=== PATIENT | female | born 1960 | race Caucasian/White ===

== ENCOUNTER 2019-03-25 18:31 | Emergency (ER) | payer OTHER, SELFPAY ==
[2019-03-25 18:35] VITALS: BP 142/88; PULSE 94; RESP 18; TEMP 36.7; O2SAT 97
--- NOTE | 2019-03-25 18:56 | ED.GENADUL_ITS ---
Discharge Plan Disposition Patient Disposition: HOME Condition: Stable Discharge Details Chief Complaint: Nk/Back Pain Clinical Impression: Low back pain Primary Care Provider: Mariana Aragon ED Provider: Kevan Mccarthy Home Meds and New Rx's Prescriptions: New cyclobenzaprine 10 mg tablet 10 mg PO TID PRN (Reason: muscle spasm) Qty: 30 RF: 0 Continued prochlorperazine maleate 10 MG tablet 10 mg PO Q8H PRN Qty: 20 RF: 1 hydroxyzine HCl 25 MG tablet 25 mg PO Q4H PRN Qty: 60 RF: 2 acetazolamide 250 MG tablet 1 - 2 tab PO BID Qty: 120 RF: 3 propranolol 80 MG tablet 160 mg PO DAILY RF: 0 methylphenidate HCl [Ritalin] 20 MG tablet 60 mg PO DAILY RF: 0 modafinil [Provigil] 200 mg Tablet 100 mg PO BID RF: 0 ibuprofen 800 mg Tablet 800 mg PO PRN PRNRF: 0 acetaminophen [Tylenol Extra Strength] 500 mg Tablet 1,000 mg PO PRN PRNRF: 0 Discharge Instructions Instructions: Low Back Strain (ED) Stand Alone Forms: Work Release Medical Decision Making 58 yo female who states she has had low back pain since December 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 Denies fevers, urinary retention, weakness, ivdu, falls, trauma. HAs pain in lumbar region, no stepoffs or rashes, no saddle anesthesisa, normal motor strength of legs and sensation and normal reflexes. Suspect muscle strain vs disc herniation. NO findings to suggest cauda equina vs sea on history or exam. Will start her on muscle relaxers and return precautions given Differential Diagnosis Differential Diagnosis: spasm, strain, disc herniation HPI General Mode of arrival: ambulatory . Date/Time Provider Initiated Documentation: 03/25/19 18:34 . Limitations to Documentation: no limitations . Information obtained by: patient . History of Present Illness 58 year old F presents to the emergency department with the chief complaint of back pain, described as moderate, and it has been constant. No relieving factors improve symptom(s), No exacerbating factors reported . Patient notes no other symptoms.. Related Data Home Medications Medication Instructions Recorded Confirmed methylphenidate HCl [Ritalin] 60 mg PO DAILY 01/12/15 03/25/19 propranolol 160 mg PO DAILY 01/12/15 03/25/19 hydroxyzine HCl 25 mg PO Q4H PRN #60 tab-cap 05/23/15 03/25/19 prochlorperazine maleate 10 mg PO Q8H PRN #20 tab-cap 05/23/15 03/25/19 acetazolamide 1 - 2 tab PO BID #120 tab-cap 09/27/15 03/25/19 acetaminophen [Tylenol Extra 1,000 mg PO PRN PRN 03/25/19 03/25/19 Strength] cyclobenzaprine 10 mg PO TID PRN #30 tab 03/25/19 ibuprofen 800 mg PO PRN PRN 03/25/19 03/25/19 modafinil [Provigil] 100 mg PO BID 03/25/19 03/25/19 Previous Rx's Medication Instructions Recorded cyclobenzaprine 10 mg PO TID PRN #30 tab 03/25/19 Allergies Allergy/AdvReac Type Severity Reaction Status Date / Time Penicillins Allergy Severe Hives Unverified 03/25/19 18:42 General Stated Complaint: Nk/Back Pain TEDDY: 4 Review of Systems All systems reviewed & are unremarkable except as noted in HPI and below Constitutional Constitutional: Denies chills and Denies fever(s) Cardiovascular Cardiovascular: Denies chest pain and Denies dyspnea Respiratory Respiratory: Denies cough and Denies dyspnea Gastrointestinal Gastrointestinal: Denies abdominal pain, Denies nausea and Denies vomiting Genitourinary Genitourinary: Denies dysuria PFSH Social History Smoking/Tobacco Use Status: Never Drug use: Never Do you feel safe at home: Yes Do you feel safe in your relationship?: Yes Exam Const General: no acute distress Orientation: alert HENMT Head: normal to inspection Ears: external ears normal General nose exam: external nose normal Mouth: moist mucous membranes Eyes General: appearance normal, both eyes and all related structures Neck Neck: normal visual inspection Resp Effort & Inspection: normal respiratory effort and able to speak in complete sentences Cardio Rate: regular rate Back/Spine/Pelvis Back: no CVA tenderness Skin General skin exam: no rashes or lesions noted Neuro General: alert and oriented x3 Extrem General: normal to inspection Psych Mental Status: mental status grossly normal Course Vital Signs Vital signs: Vital Signs Temperature 36.7 C 01/22/20 18:35 Pulse 94 H 03/25/19 18:35 Respiratory Rate 18 03/25/19 18:35 Blood Pressure 142/88 H 03/25/19 18:35 Pulse Oximetry 97 03/25/19 18:35 Temperature 36.7 C 03/25/19 18:35 Temperature Source Temporal Artery Scan 03/25/19 18:35 Pulse 94 H 03/25/19 18:35 Respiratory Rate 18 03/25/19 18:35 Respiratory Effort 03/25/19 18:41 Blood Pressure 142/88 H 03/25/19 18:35 Blood Pressure Position Sitting 03/25/19 18:35 Pulse Oximetry 97 03/25/19 18:35 Oxygen Delivery Method Room Air 03/25/19 18:35 Oxygen Flow Rate 0 03/25/19 18:35 Pain Level 8 03/25/19 18:35
[2019-03-25] MEDS: Lidocaine 5% Patch 1 PATCH TP (19:21)
[2019-03-25] MEDS: Cyclobenzaprine 10 MG TAB, 3 TABS/BTL PO (19:22)
== END 2019-03-25 19:35 | disposition home or self-care (01) ==
PROVIDERS: Emergency Provider Emergency Medicine; PCP Internal Medicine
DX: M54.5 Low back pain (principal); X50.0XXA Overexertion from strenuous movement or load, initial encounter; Y99.0 Civilian activity done for income or pay
CPT/HCPCS: 99283

== ENCOUNTER 2019-04-02 04:31 | Emergency (ER) | payer SELFPAY ==
[2019-04-02] VITALS (28 sets, daily range): BP systolic 137–155; BP diastolic 59–94; PULSE 73–88; RESP 15–29; TEMP 36.7–36.8; O2SAT 92–99
--- NOTE | 2019-04-02 04:54 | W.ED.GENAD ---
Discharge Plan Disposition Patient Disposition: HOME Discharge Details Chief Complaint: Chest Pain Clinical Impression: Chest pain Primary Care Provider: Mariana Aragon ED Provider: Robert Mccloud Home Meds and New Rx's Prescriptions: New famotidine [Pepcid] 20 mg tablet 20 mg PO BID Qty: 28 RF: 0 aspirin 81 mg tablet,delayed release (DR/EC) 81 mg PO DAILY Qty: 30 RF: 0 Continued prochlorperazine maleate 10 MG tablet 10 mg PO Q8H PRN Qty: 20 RF: 1 hydroxyzine HCl 25 MG tablet 25 mg PO Q4H PRN Qty: 60 RF: 2 acetazolamide 250 MG tablet 1 - 2 tab PO BID Qty: 120 RF: 3 propranolol 80 MG tablet 160 mg PO DAILY RF: 0 methylphenidate HCl [Ritalin] 20 MG tablet 60 mg PO DAILY RF: 0 modafinil [Provigil] 200 mg Tablet 100 mg PO BID RF: 0 ibuprofen 800 mg Tablet 800 mg PO PRN PRNRF: 0 acetaminophen [Tylenol Extra Strength] 500 mg Tablet 1,000 mg PO PRN PRNRF: 0 cyclobenzaprine 10 mg tablet 10 mg PO TID PRN (Reason: muscle spasm) Qty: 30 RF: 0 Discharge Instructions Instructions: Chest Pain (ED) Additional Instructions: You should have a stress test performed ideally within the next 72 hours. Please follow-up with primary care physician. Return to the ER immediately for any worsening or new concerning symptoms. Stand Alone Forms: Work Release Discharge Data Discharge Date/Time-TO BE ENTERED AT DEPARTURE: 04/02/19 10:25 Medical Decision Making <Tremayne Vail MD - Last Filed: 04/02/19 20:34> Patient presents to ED with chest pain. No associated symptoms and no radiation. Only cardiac risk factor is hypertension. Her revised Rosebud score makes her low probability for PE. Her EKG shows no acute ST changes. Will place IV and get labs. Will give aspirin until we have completed work-up to rule out cardiac disease. Pain is almost gone so we will hold off on nitro or pain medication. Patient continues to have some mild discomfort. GI cocktail did not really help. However, she does not want nitroglycerin or pain medication as it is minimal. Laboratory studies are unremarkable. Age-adjusted d-dimer negative. First troponin negative. Chest x-ray per my review without obvious infiltrate. Preliminary radiology read suggests atelectasis versus possible early right pneumonia. Patient has no fever, white count, cough, shortness of breath. I do not suspect pneumonia. Will hold for second EKG and troponin and if normal can plan discharge to follow-up with primary care. Patient to be signed out to oncoming physician this morning. Lab Data Lab results reviewed: Yes I reviewed the patient's lab results. ECG Data Attestation: I personally reviewed and interpreted this ECG (s) as follows: Interpretation: Sinus rhythm at 78. Normal intervals but left anterior fascicular block and left axis noted. No ST changes. <Robert Mccloud MD - Last Filed: 04/02/19 21:38> 8:00 -- Care signed out by Dr. Vail -please see his documentation regarding initial ED presentation and course. Dr. Vail recommends repeat troponin and repeat ECG and reassess patient and if no change likely discharge with outpatient follow-up. -- I did call and speak with Dr. Islas, radiologist, who interpreted chest x-ray and notes very subtle right middle lobe finding likely atelectasis and not consistent with cardiovascular etiology. -- Labs were reviewed. Second troponin at 3 hours negative and unchanged. Repeat ECG was reviewed and interpreted by me: Sinus rhythm 81 bpm, left axis deviation is present, no STEMI, no ischemic or dynamic changes compared to prior ECG. Patient was reassessed: She notes she is feeling much better and attributes her symptoms today to emotional distress. She states yesterday she had a very stressful day and was feeling anxious today. I did offer anxiolytic today and she declined. She does request a work note for the remainder of the week and early next week. Concern at this point is for anxiety, musculoskeletal or gastrointestinal etiology for discomfort. Plan will be for outpatient stress test. Patient does not currently have a primary care physician. I will ask care management to help patient arrange timely outpatient primary care follow-up. I explained to patient that stress test should be performed soon as possible ideally within the next 72 hours. I will order this study to help expedite outpatient work-up. Patient understands importance of timely follow-up and that she may return if she has difficulty with follow-up. Patient does note increased frequency of chronic migraine headaches recently. She states that she has had difficulty scheduling neurology appointment at her place of [place] [employer] [place] I offered assistance in coordinating follow-up and she declined noting she plans to reach out to [facility] to arrange follow-up. Disposition decision was made weighing the risks and benefits of hospitalization versus outpatient treatment, the risk for further decompensation, and the patient's wishes. The patient was stable and requested discharge. Prior to discharge, my usual and customary return precautions were reviewed with the patient - this included follow-up instructions and reason to return to the emergency department if condition worsens, does not improve as expected, or other new concerns arise. Lab Data Lab results reviewed: Yes I reviewed the patient's lab results. HPI <Tremayne Vail MD - Last Filed: 04/02/19 20:34> General Mode of arrival: EMS. Date/Time Provider Initiated Documentation: 04/02/19 04:54. Limitations to Documentation: no limitations. Information obtained by: patient, RN notes reviewed and old records reviewed. HPI Narrative: Patient presents to ED with lower substernal chest pain that woke her up. There is no radiation of the pain. There is no associated symptoms. Tums did not help. EMS was called. Pain seemed to get better on its own but is intermittently worsening at times. Has not completely gone away. Has been under a lot of stress. Other than high blood pressure has no other cardiac risk factors. She does not smoke. She did not receive aspirin and nitro in route. Related Data Home Medications Medication Instructions Recorded Confirmed methylphenidate HCl [Ritalin] 60 mg PO DAILY 01/12/15 04/02/19 propranolol 160 mg PO DAILY 01/12/15 04/02/19 hydroxyzine HCl 25 mg PO Q4H PRN #60 tab-cap 05/23/15 04/02/19 prochlorperazine maleate 10 mg PO Q8H PRN #20 tab-cap 05/23/15 04/02/19 acetazolamide 1 - 2 tab PO BID #120 tab-cap 09/27/15 04/02/19 acetaminophen [Tylenol Extra 1,000 mg PO PRN PRN 03/25/19 04/02/19 Strength] cyclobenzaprine 10 mg PO TID PRN #30 tab 03/25/19 04/02/19 ibuprofen 800 mg PO PRN PRN 03/25/19 04/02/19 modafinil [Provigil] 100 mg PO BID 03/25/19 04/02/19 aspirin 81 mg PO DAILY #30 tab 04/02/19 famotidine [Pepcid] 20 mg PO BID #28 tab 04/02/19 Previous Rx's Medication Instructions Recorded cyclobenzaprine 10 mg PO TID PRN #30 tab 03/25/19 aspirin 81 mg PO DAILY #30 tab 04/02/19 famotidine [Pepcid] 20 mg PO BID #28 tab 04/02/19 Allergies Allergy/AdvReac Type Severity Reaction Status Date / Time Penicillins Allergy Severe Hives Unverified 04/02/19 04:36 General Stated Complaint: Chest Pain TEDDY: 3 Review of Systems <Tremayne Vail MD - Last Filed: 04/02/19 20:34> Narrative: 12/15 Review of Systems completed and is negative except as stated above in HPI (Systems reviewed: Const, Eyes, ENT, Resp, CV, GI, , MSK, Skin, Neuro) PFSH <Tremayne Vail MD - Last Filed: 04/02/19 20:34> Medical History (Updated 04/02/19 @ 09:56 by Robert Mccloud MD) ADHD (Chronic) Anxiety (Chronic) HTN (hypertension) (Chronic) Migraine (Chronic) Surgical History (Updated 04/02/19 @ 05:59 by Tremayne Vail MD) S/P hysterectomy (Acute) Social History Smoking/Tobacco Use Status: Never Alcohol Intake: never Drug use: Never Substance use type: does not use Do you feel safe at home: Yes Do you feel safe in your relationship?: Yes Exam <Tremayne Vail MD - Last Filed: 04/02/19 20:34> Narrative Exam Narrative: Vitals: Afebrile. Elevated blood pressure otherwise normal vitals and normal room air pulse oximetry. Const: WDWN female in NAD. HEENT: NC/AT. Normal facial exam. Eyes: Normal conjunctiva and sclera. Neck: Supple. Trachea midline. Lungs: Normal respiratory effort. Lungs are clear. No chest wall tenderness. Cor: RRR without murmur/gallop. Good radial pulses. GI: Soft. NT/ND. No guarding or rebound. Neuro: A+O x 3. Normal speech, mentation, gait. Cranial nerves II - XII grossly intact. No gross motor or sensory deficit. Ext: No C/C/E. No calf tenderness. Skin: Warm and dry without rash. Course <Tremayne Vail MD - Last Filed: 04/02/19 20:34> Vital Signs Vital signs: Vital Signs Temperature 98.2 F 04/02/19 04:32 Pulse 78 04/02/19 04:32 Respiratory Rate 20 04/02/19 04:32 Blood Pressure 155/88 H 04/02/19 04:32 Pulse Oximetry 99 04/02/19 04:32 Temperature 98.2 F 04/02/19 04:32 Temperature Source Temporal Artery Scan 04/02/19 04:32 Pulse 82 04/02/19 04:46 Pulse 88 04/02/19 04:50 Respiratory Rate 18 04/02/19 04:50 Respiratory Effort Non-Labored 04/02/19 04:37 Respiratory Depth Normal 04/02/19 04:37 Respiratory Pattern Normal 04/02/19 04:37 Blood Pressure 148/91 H 04/02/19 04:46 Blood Pressure Mean 105 04/02/19 04:46 Pulse Oximetry 98 04/02/19 04:50 Oxygen Delivery Method Room Air 04/02/19 04:32 Oxygen Flow Rate 0 04/02/19 04:32 Pain Level 4 04/02/19 04:37 Sign Out <Tremayne Vail MD - Last Filed: 04/02/19 20:34> Sign Out Data: Sign Out Comment: Pending second troponin and EKG. Last updated by Tremayne Vail MD at 04/02/19 08:03
[2019-04-02] MEDS: Aspirin 81 MG CHEW 324 MG CH (05:02)
[2019-04-02 05:12] LABS: Abs Immature Grans 0.01 k/cumm (0.0-0.09); Absolute Basophil Count 0.03 k/cumm (0.0-0.2); Absolute Eosinophil Count 0.25 k/cumm (0.0-0.7); Absolute Lymphocyte Count 1.92 k/cumm (1.2-3.4); Absolute Monocyte Count 0.63 k/cumm (0.11-0.7); Absolute Neutrophil Count 4.77 k/cumm (1.2-6.7); Basophils % 0.4; Eosinophils % 3.3; HCT 42.2 % (36.0-46.0); HGB 14.5 g/dL (12.0-15.5); Immature Grans % 0.1 %; Lymphocytes % 25.2; Mean Corp. HGB Concentration 34.4 g/dL (32.0-36.0); Mean Corpuscular Hemoglobin 30.6 pg (27.0-33.0); Mean Platelet Volume 9.9 fL (8.0-11.0); Monocytes % 8.3; Neutrophils % 62.7; Platelet Count 302 x1000/uL (130-400); RBC 4.74 m/cumm (4.00-5.20); RBC Distribution Width 12.4 % (11.7-14.6); White Blood Cell Count 7.61 k/cumm (4.4-10.8)
[2019-04-02 05:28] LABS: ALT 39 U/L (14-59); AST 43 U/L (15-37); Albumin 3.6 g/dL (3.4-5.0); Alkaline Phosphatase 112 U/L (46-116); Anion Gap 9.3 mmol/L (3-11); BUN 18 mg/dL (7-18); Bilirubin, Total 0.4 mg/dL (0.2-1.0); CO2 27.7 mmol/L (21.0-32.0); CREATININE 0.77 mg/dL (0.55-1.02); Calcium 8.9 mg/dL (8.5-10.1); Chloride 107 mmol/L (98-107); Glucose 149 mg/dL (74-106); Magnesium 1.8 mg/dL (1.8-2.4); Potassium 3.6 mmol/L (3.5-5.1); Sodium 144 mmol/L (136-145); Total Protein 7.6 g/dL (6.4-8.2)
[2019-04-02 05:30] LABS: Troponin I < 0.05 ng/Ml (<0.06)
[2019-04-02 05:40] LABS: D-Dimer 546 ng/mlFEU (<500)
--- NOTE | 2019-04-02 05:57 | DI.RAD_ITS ---
EXAM: XR CHEST 2V PA LATERAL CLINICAL HISTORY: chest pain TECHNIQUE: COMPARISON: CHEST 2 VIEWS PA,LAT from 09/30/2016 FINDINGS: Heart is not enlarged. Lungs are predominantly clear. There is question of slight asymmetry of radi odensities projected over the right lower lung field compared to the left, right middle lobe infiltra te not entirely excluded but probably this is within normal limits. No pleural effusion seen. IMPRESSION: Probably normal examination. Right middle lobe process not entirely excluded, follow-up films could be obtained if there is clinical worsening.
[2019-04-02] MEDS: Normal Saline Flush 10 ML SYR IVP (06:01)
--- NOTE | 2019-04-02 06:32 | DI.VRAD_ITS ---
PROCEDURE INFORMATION: Exam: XR Chest, 2 Views Exam date and time: 04/02/2019 5:48 AM Age: 58 years old Clinical indication: Chest pain; Type not specified TECHNIQUE: Imaging protocol: XR of the chest Views: 2 views. COMPARISON: No relevant prior studies available. FINDINGS: Lungs: Mild chronic interstitial prominence/peribronchial thickening. Question minimal right middle lobe opacity Pleural space: No pleural effusion. No pneumothorax. Heart/Mediastinum: . No cardiomegaly. Mildly tortuous aorta Bones/joints: Unremarkable. IMPRESSION: Question minimal right middle lobe opacity which may represent subsegmental atelectasis versus developing pneumonia Dictated and Authenticated by: Franck Delgado MD. Ordering:VAZQUEZ Casper MD
[2019-04-02 08:21] LABS: Troponin I < 0.05 ng/Ml (<0.06)
== END 2019-04-02 10:25 | disposition home or self-care (01) ==
PROVIDERS: Emergency Medicine; Emergency Provider Student in an Organized Health Care Education/Training Program; PCP Internal Medicine
DX: R07.9 Chest pain, unspecified (principal); F41.9 Anxiety disorder, unspecified; I10 Essential (primary) hypertension
CPT/HCPCS: 36415; 80053; 93005; 99285; 71046; 83735; 84484; 85025; 85379; 93010

== ENCOUNTER 2020-10-12 02:31 | Inpatient (IN) | payer MEDICAID, SELFPAY ==
[2020-10-12] VITALS (27 sets, daily range): BP systolic 97–193; BP diastolic 59–81; PULSE 73–99; RESP 18–28; TEMP 36.5–39.8; O2SAT 92–99
--- NOTE | 2020-10-12 02:45 | DI.CT_ITS ---
Exam(s) CT RENAL COLIC WO EXAM: CT RENAL COLIC WO CLINICAL HISTORY: right flank pain. TECHNIQUE: Imaging Protocol: Axial computed tomography images with coronal and sagittal reformatted images were created and reviewed. CONTRAST MATERIAL: Noncontrast COMPARISON: CT CHEST FOR PULMONARY EMBOLUS from 09/30/2016 FINDINGS: ABDOMEN: Lung Bases: Normal where visualized. Small hiatal hernia. Liver: Enlarged. Fatty infiltration.. No measurable mass. Gallbladder and biliary tract: No radiodense calculus or dilation. Pancreas: Normal density, no calcifications or inflammatory process. Spleen: Normal. Kidneys: Right kidney: Staghorn calculus right renal pelvis. Air is seen within the calyces. Mild d ilatation of proximal right ureter. Left kidney: Normal size, contour and axis. No radiodense stones or obstructive uropathy. No masses s een. Adrenal glands: Stable tiny fatty nodule on the left adrenal, consistent with an adenoma.. Abdominal Aorta: Abdominal portion non-dilated. Soft tissues: Small fatty umbilical hernia. PELVIS: Bladder: Nearly empty. Air seen within the bladder. This could be secondary to instrumentation vers us gas-forming organism.. Bowel: No obstruction or bowel wall thickening. Appendix normal. Mild sigmoid diverticulosis. Peritoneal cavity: No ascites, collection or mesenteric inflammatory response. Bones: Within normal limits. IMPRESSION: Right staghorn calculus with air in the collecting system. Findings are suspicious for infection. A ir seen within the urinary bladder which could be secondary to instrumentation or infection. RADIATION DOSE DELIVERED: 1,159.32mGy.cm Total DLP DATA REPOSITORY: All CT scans at this facility are submitted to the National Radiology Data Registry (NRDR) Dose Index Registry (DIR) with the [employer] (ACR). RADIATION OPTIMIZATION: All CT scans at this facility use at least one of these dose optimization te chniques: automated exposure control; mA and/or kV adjustment per patient size (includes targeted exa ms where dose is matched to clinical indication); or iterative reconstruction.
--- NOTE | 2020-10-12 02:55 | ED.GENADUL_ITS ---
Discharge Plan Disposition Patient Disposition: [facility] INPATIENT Condition: Stable Discharge Details Chief Complaint: FlankPain Clinical Impression: Pyelonephritis, acute Primary Care Provider: Patti,Local ED Provider: Kevan Mccarthy Home Meds and New Rx's Prescriptions: No Action prochlorperazine maleate 10 MG tablet 10 mg PO Q8H PRN Qty: 20 RF: 1 hydroxyzine HCl 25 MG tablet 25 mg PO Q4H PRN Qty: 60 RF: 2 acetazolamide 250 MG tablet 1 - 2 tab PO BID Qty: 120 RF: 3 propranolol 80 MG tablet 160 mg PO DAILY RF: 0 methylphenidate HCl [Ritalin] 20 MG tablet 60 mg PO DAILY RF: 0 famotidine [Pepcid] 20 mg tablet 20 mg PO BID Qty: 28 RF: 0 aspirin 81 mg tablet,delayed release (DR/EC) 81 mg PO DAILY Qty: 30 RF: 0 modafinil [Provigil] 200 mg Tablet 100 mg PO BID RF: 0 ibuprofen 800 mg Tablet 800 mg PO PRN PRNRF: 0 acetaminophen [Tylenol Extra Strength] 500 mg Tablet 1,000 mg PO PRN PRNRF: 0 cyclobenzaprine 10 mg tablet 10 mg PO TID PRN (Reason: muscle spasm) Qty: 30 RF: 0 Medical Decision Making 59 yo female who states she was diagnosed with a staghorn calculus when she lived in [facility] a year ago, htn, who comes in with acute onset right lower back pain aroud 6pm. She states she has also had nausea without vomit. No fevers, difficulty urinating, dysuria. She felt well prior to 6pm per patient. She appears in pain but no distress. Denies chset pain or dyspnea. She has no abdomen tenderness, no cva tenderness and localizes the pain to the right lower lateral lumbar back. No saddle anesthesia. History and sudden onset of pain makes kidney stone most likely, given no abdomen tenderness doubt surgical pathology such as small bowel obstruction, or diverticulitis. Will obtain labs, treat with phenergan (states this works well for her normally) and pain meds and obtain ct renal colic and reassess. UA consistent with uti and ct shows her known staghorn caclulus, mild right hydro and gas within the renal collecting system consistent with emphysematous pyelo. Remains stable and is feeling much better. Treated with IV levofloxacin, discussed with hospitalist who accepts for admission and likely urology consult in the AM. CT did states can't exclude early appendicitis but has no rlq tenderness and story of acute onset right lower back pain seems inconsistent with this Differential Diagnosis Differential Diagnosis: muscle spasm, kidney stone, pyelo Imaging Data Radiologic Study: Attestation: I personally reviewed and interpreted this imaging study as follows: Imaging: CT Scan Radiologist's impression: IMPRESSION: 1. 3.4 cm staghorn calculus right renal pelvis with mild right hydronephrosis. 2. Gas within the right renal collecting system, recommend clinical exclusion of infection by gasforming organism. 3. Although the appendix is thin-walled and demonstrates focal areas of gas, it is mildly dilated in areas up to 8 mm and a very early appendicitis is not entirely excluded. Lab Data Lab results reviewed: Yes I reviewed the patient's lab results. HPI General Mode of arrival: ambulatory . Date/Time Provider Initiated Documentation: 10/12/20 02:32 . Limitations to Documentation: no limitations . Information obtained by: patient . History of Present Illness 59 year old F presents to the emergency department with the chief complaint of right lower back pain, described as severe, Quality is described as stabbing and aching, and is localized to the back. Patient reports no radiation. Patient start ed experiencing this hour(s) (8) and it has been constant and intermittent. No relieving factors improve symptom(s), No exacerbating factors reported . Patient notes other (nausea). Patient did receive the following treatments prior to arrival, NSAID (8 hours ago) Related Data Home Medications Medication Instructions Recorded Confirmed methylphenidate HCl [Ritalin] 60 mg PO DAILY 01/12/15 04/02/19 propranolol 160 mg PO DAILY 01/12/15 04/02/19 hydroxyzine HCl 25 mg PO Q4H PRN #60 tab-cap 05/23/15 04/02/19 prochlorperazine maleate 10 mg PO Q8H PRN #20 tab-cap 05/23/15 04/02/19 acetazolamide 1 - 2 tab PO BID #120 tab-cap 09/27/15 04/02/19 acetaminophen [Tylenol Extra 1,000 mg PO PRN PRN 03/25/19 04/02/19 Strength] cyclobenzaprine 10 mg PO TID PRN #30 tab 03/25/19 04/02/19 ibuprofen 800 mg PO PRN PRN 03/25/19 04/02/19 modafinil [Provigil] 100 mg PO BID 03/25/19 04/02/19 aspirin 81 mg PO DAILY #30 tab 04/02/19 famotidine [Pepcid] 20 mg PO BID #28 tab 04/02/19 Previous Rx's Medication Instructions Recorded cyclobenzaprine 10 mg PO TID PRN #30 tab 03/25/19 aspirin 81 mg PO DAILY #30 tab 04/02/19 famotidine [Pepcid] 20 mg PO BID #28 tab 04/02/19 Allergies Allergy/AdvReac Type Severity Reaction Status Date / Time Penicillins Allergy Severe Hives Unverified 10/12/20 04:06 General Stated Complaint: FlankPain TEDDY: 3 Review of Systems All systems reviewed & are unremarkable except as noted in HPI and below Constitutional Constitutional: Denies chills, Denies fever(s) and Denies weakness Cardiovascular Cardiovascular: Denies chest pain and Denies dyspnea Respiratory Respiratory: Denies cough and Denies dyspnea Gastrointestinal Gastrointestinal: Denies abdominal pain and Denies vomiting Neurologic Neurologic: Denies weakness PFSH Medical History ADHD Anxiety HTN (hypertension) Migraine Surgical History S/P hysterectomy Social History Smoking/Tobacco Use Status: Never Smoking risk assessment performed?: Yes Alcohol Intake: current Alcohol Intake frequency: a few times a month Drug use: Never Substance use type: does not use Do you feel safe at home: Yes Do you feel safe in your relationship?: Yes Exam Const General: no acute distress Orientation: alert HENMT Head: normal to inspection Ears: external ears normal General nose exam: external nose normal Mouth: moist mucous membranes Eyes General: appearance normal, both eyes and all related structures Neck Neck: normal visual inspection Resp Effort & Inspection: normal respiratory effort and able to speak in complete sentences Cardio Rate: regular rate GI Palpation: soft and nontender Back/Spine/Pelvis Back: no CVA tenderness Skin General skin exam: no rashes or lesions noted Neuro General: patient alert and patient oriented x3 Extrem General: normal to inspection Psych Mental Status: mental status grossly normal Course Vital Signs Vital signs: Vital Signs Temperature 36.5 C 10/12/20 02:40 Pulse 88 10/12/20 02:40 Respiratory Rate 18 10/12/20 02:40 Blood Pressure 172/78 H 10/12/20 02:40 Pulse Oximetry 99 10/12/20 02:40 Temperature 36.5 C 10/12/20 02:40 Temperature Source Temporal Artery Scan 10/12/20 02:40 Pulse 88 10/12/20 02:40 Respiratory Rate 18 10/12/20 02:40 Respiratory Effort Non-Labored 10/12/20 02:43 Blood Pressure 172/78 H 10/12/20 02:40 Blood Pressure Position Sitting 10/12/20 02:40 Pulse Oximetry 99 10/12/20 02:40 Oxygen Delivery Method Room Air 10/12/20 02:40 Oxygen Flow Rate 0 10/12/20 02:40 Pain Level 8 10/12/20 02:40
[2020-10-12] MEDS: Ketorolac 15 MG/ML VIAL IVP ×2 (03:13→20:56)
[2020-10-12] MEDS: fentaNYL 100 MCG/2 ML VIAL 50 MCG IVP (03:14)
--- NOTE | 2020-10-12 03:25 | NUR.NOTE ---
0319-To CT ScanNursing Note:
[2020-10-12 03:27] LABS: Abs Immature Grans 0.02 10^3/uL (0.0-0.06); Absolute Basophil Count 0.06 10^3/uL (0.0-0.2); Absolute Eosinophil Count 0.19 10^3/uL (0.0-0.7); Absolute Lymphocyte Count 1.34 10^3/uL (1.2-3.4); Absolute Monocyte Count 0.86 10^3/uL (0.1-0.8); Absolute Neutrophil Count 7.48 10^3/uL (1.2-6.7); Basophils % 0.6; Eosinophils % 1.9; HCT 41.6 % (36.0-46.0); HGB 13.9 g/dL (11.2-15.7); Immature Grans % 0.2; Lymphocytes % 13.5; MCH 29.6 pg (27.0-33.0); MCHC 33.4 % (32.0-36.0); MCV 88.5 fL (80-95); MPV 9.8 fL (8.0-11.0); Monocytes % 8.6; Neutrophils % 75.2; Nucleated RBC 0 %; Platelet Count 286 10^3/uL (130-400); RDW 11.9 % (11.7-14.6); RDW-SD 38.2 fL; WBC 9.95 10^3/uL (4.4-10.8)
[2020-10-12 03:41] LABS: ALT 25 U/L (14-59); AST 13 U/L (15-37); Albumin 3.5 g/dL (3.4-5.0); Alkaline Phosphatase 95 U/L (46-116); Anion Gap 5.7 mmol/L (3-11); BUN 12 mg/dL (7-18); Bilirubin, Total 0.7 mg/dL (0.2-1.0); CO2 28.3 mmol/L (21.0-32.0); CREATININE 0.7 mg/dL (0.55-1.02); Calcium 9.1 mg/dL (8.5-10.1); Chloride 105 mmol/L (98-107); Glucose 169 mg/dL (74-106); Lipase 86 U/L (73-393); Magnesium 1.8 mg/dL (1.8-2.4); Potassium 4.1 mmol/L (3.5-5.1); Sodium 139 mmol/L (136-145); Total Protein 7.8 g/dL (6.4-8.2)
--- NOTE | 2020-10-12 03:46 | NUR.NOTE ---
Returns from radiology. Denies pain,Nursing Note:
--- NOTE | 2020-10-12 04:11 | DI.VRAD_ITS ---
PROCEDURE INFORMATION: Exam: CT Abdomen And Pelvis Without Contrast Exam date and time: 10/12/2020 2:55 AM Age: 59 years old Clinical indication: Abdominal pain and other: Flank; Localized; Right; Prior surgery; Surgery date: 6+ months; Surgery type: Hysterectomy; Patient HX: R flank pain TECHNIQUE: Imaging protocol: Computed tomography of the abdomen and pelvis without contrast. Radiation optimization: All CT scans at this facility use at least one of these dose optimization techniques: automated exposure control; mA and/or kV adjustment per patient size (includes targeted exams where dose is matched to clinical indication); or iterative reconstruction. COMPARISON: CT CHEST FOR PULMONARY EMBOLUS 09/30/2016 6:55 PM FINDINGS: Liver: Hepatic steatosis. Gallbladder and bile ducts: Normal. No calcified stones. No ductal dilation. Pancreas: Normal. No ductal dilation. Spleen: Normal. No splenomegaly. Adrenal glands: Normal. No mass. Kidneys and ureters: 3.4 cm staghorn calculus right renal pelvis with mild right hydronephrosis. Gas within the right renal collecting system, recommend clinical exclusion of infection by gas-forming organism. Stomach and bowel: Colonic diverticula. Appendix: Although the appendix is thin-walled and demonstrates focal areas of gas, it is mildly dilated in areas up to 8 mm and a very early appendicitis is not entirely excluded. Intraperitoneal space: Unremarkable. No free air. No significant fluid collection. Vasculature: Unremarkable. No abdominal aortic aneurysm. Lymph nodes: Unremarkable. No enlarged lymph nodes. Urinary bladder: Unremarkable as visualized. Reproductive: Status post hysterectomy. Bones/joints: Unremarkable. No acute fracture. Soft tissues: Fat containing inguinal hernia. IMPRESSION: 1. 3.4 cm staghorn calculus right renal pelvis with mild right hydronephrosis. 2. Gas within the right renal collecting system, recommend clinical exclusion of infection by gas-forming organism. 3. Although the appendix is thin-walled and demonstrates focal areas of gas, it is mildly dilated in areas up to 8 mm and a very early appendicitis is not entirely excluded. Dictated and Authenticated by: Kevan Diaz MD. Ordering:BIA Mathur MD
[2020-10-12 04:13] LABS: Bilirubin Negative (Negative); Blood Large (Negative); Clarity Cloudy (Clear); Glucose Negative (Negative); Ketones Negative (Negative); Leukocyte Esterase Moderate (Negative); Nitrite Positive (Negative); Specific Gravity 1.025 (1.005-1.025); Urobilinogen 0.2 EU/dL (Up TO 0.2); pH 5.5 (5-8)
[2020-10-12 04:20] LABS: WBC >50 HPF (0-5)
[2020-10-12 04:21] LABS: C & S Indicated? Yes
--- NOTE | 2020-10-12 04:29 | HPE_ITS ---
Date of service: 10/12/20 Time of Service: 04:29 Assessment and Plan Assessment and plan (1) Pyelonephritis, acute: Start date: 10/12/20 Status: Acute Assessment and plan: This is a 59-year-old with a history of renal calculi presenting with right flank pain undergoing staghorn calculi with mild hydronephrosis and emphysematous pyelonephritis. There were also changes in the appendix with no clinical findings of appendicitis in the ED though she was mildly uncomfortable to palpation of the right lower quadrant by my exam and this will be covered with Levaquin dose surgical consultation may be warranted. She will be admitted for IV hydration, IV Levaquin and pain control. Consult urology in the morning as well as surgery if indicated. (2) Renal calculus, right: Status: Acute Assessment and plan: Patient has a staghorn calculus with see for stated in the ED has been present in the past when she lived in [place]. She denied renal calculi to me with interview. She was sedated. With emphysematous pyelonephritis and staghorn calculi she does need to see urology and this is an urgent surgical situation. (3) Appendicitis: Start date: 10/12/20 Status: Acute Assessment and plan: Patient has had an abnormal CT with some emphysema in the appendix being of concern for acute appendicitis. She did have some guarding though no evidence of peritonitis on exam. Surgical consultation as warranted with Levaquin IV for now. Qualifiers: Appendicitis type: acute appendicitis Acute appendicitis type: other Qualified Code(s): K35.890 - Other acute appendicitis without perforation or gangrene History of Present Illness History of Present Illness Chief Complaint: Right flank pain Narrative: This is a 59-year-old female patient who began to have right lower back and flank pain 6 PM the evening that she presented to the ED for evaluation. She denies any fever or chills and has had no urinary symptoms or gross hematuria noted. She does have a history of staghorn calculus diagnosed about a year ago when she lived in [place] the patient denies that she had any history of kidney stones when I interviewed her. She was sedated with pain control at that time. She also has a history of migraine headaches, hypertension and ADHD on medical therapy. She was comfortable with IV fentanyl and antiemetics and had no complaints of back discomfort at the time of my exam but he was having right abdominal discomfort when examined by me. In the ED she had no right lower quadrant discomfort reported even though she had a CT scan revealing an abnormal appearing appendix. In the ED patient was found to have emphysematous pyelon ephritis on the right with her staghorn calculus but no overt ureteral obstruction though there was some mild hydronephrosis. She was admitted for IV hydration, IV antibiotics and urology consultation in the morning if available. She offers no further history being sedated. Review of Systems Narrative: 13 point review of systems positive for mild headache and nausea, otherwise unrevealing or stable. Patient is overweight. [facility] Medical History ADHD Anxiety HTN (hypertension) Migraine Surgical History S/P hysterectomy Social History Smoking/Tobacco Use Status: Never Smoking risk assessment performed?: Yes Alcohol Intake: current Alcohol Intake frequency: a few times a month Drug use: Never Substance use type: does not use Do you feel safe at home: Yes Do you feel safe in your relationship?: Yes Meds Allergies and Home Medications Allergies Allergy/AdvReac Type Severity Reaction Status Date / Time Penicillins Allergy Severe Hives Unverified 10/12/20 04:06 Home Medications Medication Instructions Recorded Confirmed Type methylphenidate HCl [Ritalin] 20 mg PO TID 01/12/15 10/12/20 History hydroxyzine HCl 25 mg PO Q4H PRN #60 tab-cap 05/23/15 10/12/20 History prochlorperazine maleate 10 mg PO Q8H PRN #20 tab-cap 05/23/15 10/12/20 History acetazolamide 1 - 2 tab PO BID #120 tab-cap 09/27/15 10/12/20 History acetaminophen [Tylenol Extra 1,000 mg PO PRN PRN 03/25/19 10/12/20 History Strength] cyclobenzaprine 10 mg PO TID PRN #30 tab 03/25/19 10/12/20 Rx ibuprofen 800 mg PO PRN PRN 03/25/19 10/12/20 History modafinil [Provigil] 200 mg PO QAM 03/25/19 10/12/20 History aspirin 81 mg PO DAILY #30 tab 04/02/19 10/12/20 Rx famotidine [Pepcid] 20 mg PO BID #28 tab 04/02/19 10/12/20 Rx propranolol 160 mg PO DAILY 10/12/20 10/12/20 History rimegepant [Nurtec ODT] 75 mg PO ONCE PRN 10/12/20 10/12/20 History Exam Narrative Exam Narrative: General: Patient appears sedated with IV fentanyl for chronic pain but able to open eyes and converse with minimal conversation and some slight fusion with her sedation. She is alert and oriented at least to person place. She is in no acute distress. She is moderately obese. HEENT: Normocephalic, eyes with pupils equal and reactive light symmetrically, extraocular movement intact and sclera anicteric. Oropharynx with dry mucosa. Neck: Supple without JVD. Back: Stooped posture with right CVA tenderness. Lungs: Poor inspiratory effort but clear to auscultation. Breast: Exam deferred. Heart: Regular rate and rhythm with no murmurs or gallops appreciated. Abdomen: Obese contour, soft and generally nontender to palpation except with slight guarding in the right lower quadrant but no rebound. Bowel sounds positive but decreased in all quadrants. No palpable hepatosplenomegaly. Genitalia/rectal: Exam deferred. Extremities: Without clubbing, cyanosis or pitting edema. Peripheral pulses intact. Skin: Pale, warm and dry. Neuro: Cranial nerves II through XII grossly intact, no focalizing motor deficits. Patient is sedated with clouded sensorium but cooperative in exam. Psych: Flattened affect with depressed mood though with sedation this is difficult to assess. No abnormal thought processes manifested. Remote and recent memory grossly intact but once again difficult to test with patient sedated. Results Imaging Imaging Studies: Exam: CT Abdomen And Pelvis Without Contrast Exam date and time: 10/12/2020 2:55 AM Age: 59 years old Clinical indication: Abdominal pain and other: Flank; Localized; Right; Prior surgery; Surgery date: 6+ months; Surgery type: Hysterectomy; Patient HX: R flank pain TECHNIQUE: Imaging protocol: Computed tomography of the abdomen and pelvis without contrast. Radiation optimization: All CT scans at this facility use at least one of these dose optimization techniques: automated exposure control; mA and/or kV adjustment per patient size (includes targeted exams where dose is matched to clinical indication); or iterative reconstruction. COMPARISON: CT CHEST FOR PULMONARY EMBOLUS 09/30/2016 6:55 PM FINDINGS: Liver: Hepatic steatosis. Gallbladder and bile ducts: Normal. No calcified stones. No ductal dilation. Pancreas: Normal. No ductal dilation. Spleen: Normal. No splenomegaly. Adrenal glands: Normal. No mass. Kidneys and ureters: 3.4 cm staghorn calculus right renal pelvis with mild right hydronephrosis. Gas within the right renal collecting system, recommend clinical exclusion of infection by gas-forming organism. Stomach and bowel: Colonic diverticula. Appendix: Although the appendix is thin-walled and demonstrates focal areas of gas, it is mildly dilated in areas up to 8 mm and a very early appendicitis is not entirely excluded. Intraperitoneal space: Unremarkable. No free air. No significant fluid collection. Vasculature: Unremarkable. No abdominal aortic aneurysm. Lymph nodes: Unremarkable. No enlarged lymph nodes. Urinary bladder: Unremarkable as visualized. Reproductive: Status post hysterectomy. Bones/joints: Unremarkable. No acute fracture. Soft tissues: Fat containing inguinal hernia. IMPRESSION: 1. 3.4 cm staghorn calculus right renal pelvis with mild right hydronephrosis. 2. Gas within the right renal collecting system, recommend clinical exclusion of infection by gas-forming organism. 3. Although the appendix is thin-walled and demonstrates focal areas of gas, it is mildly dilated in areas up to 8 mm and a very early appendicitis is not entirely excluded. Labs Result diagrams: 10/12/20 06:07 10/12/20 06:07 Labs: Laboratory Results - last 24 hr 10/12/20 10/12/20 10/12/20 03:00 03:00 03:15 WBC 9.95 RBC 4.70 Hgb 13.9 Hct 41.6 MCV 88.5 MCH 29.6 MCHC 33.4 RDW 11.9 Plt Count 286 MPV 9.8 Immature Gran % 0.2 Neutrophils % 75.2 Lymphocytes % 13.5 Monocytes % 8.6 Eosinophils % 1.9 Basophils % 0.6 Nucleated RBC % 0 Absolute Neutrophils 7.48 H Absolute Lymphocytes 1.34 Absolute Monocytes 0.86 H Absolute Eosinophils 0.19 Absolute Basophils 0.06 Sodium 139 Potassium 4.1 Chloride 105 Carbon Dioxide 28.3 Anion Gap 5.7 BUN 12 Creatinine 0.7 Estimated GFR/1.73 m2 >= 60.00 Glucose 169 H Calcium 9.1 Magnesium 1.8 Total Bilirubin 0.7 AST 13 L ALT 25 Alkaline Phosphatase 95 Total Protein 7.8 Albumin 3.5 Lipase 86 Urine Color Yellow Urine Clarity Cloudy Urine pH 5.5 Ur Specific [place] 1.025 Urine Protein 100 H Urine Ketones Negative Urine Blood Large H Urine Nitrite Positive H Urine Bilirubin Negative Urine Urobilinogen 0.2 Ur Leukocyte Esterase Moderate H Urine RBC Urine WBC >50 H Ur Epithelial Cells Not Applicable Urine Crystals Not Applicable Urine Bacteria Not Applicable Urine Mucus Not Applicable Ur Culture Indicated? Yes Urine Glucose Negative Last Vital Signs Temp 36.5 C 10/12/20 02:40 Pulse 76 10/12/20 04:05 Resp 18 10/12/20 04:05 BP 136/73 10/12/20 04:05 Pulse Ox 94 10/12/20 04:05
--- NOTE | 2020-10-12 04:42 | NUR.NOTE ---
0435-First blood culture drawn Genet Adhikari Note:
[2020-10-12 05:01] LABS: Source Nasal/Nares
[2020-10-12] MEDS: levoFLOXacin 750 MG/150 ML BAG 100 MG IVPB (05:02)
--- NOTE | 2020-10-12 05:11 | NUR.NOTE ---
Report called to IFEOMA Leonardo, Med surgNursing Note:
[2020-10-12 05:51] LABS: COVID-19 PCR Negative (Negative)
[2020-10-12] MEDS: Heparin 5,000 UNITS/ML VIAL 5000 UNITS SC (06:42)
[2020-10-12] MEDS: Normal Saline Flush 10 ML SYR IVP ×3 (06:42→20:56)
[2020-10-12] MEDS: Normal Saline 1,000 ML 150 ML IV ×2 (06:42→18:48)
[2020-10-12 07:06] LABS: Abs Immature Grans 0.12 10^3/uL (0.0-0.06); Absolute Basophil Count 0.03 10^3/uL (0.0-0.2); Absolute Eosinophil Count 0.07 10^3/uL (0.0-0.7); Absolute Lymphocyte Count 0.52 10^3/uL (1.2-3.4); Absolute Monocyte Count 0.05 10^3/uL (0.1-0.8); Absolute Neutrophil Count 5.27 10^3/uL (1.2-6.7); Basophils % 0.5; Eosinophils % 1.2; HGB 13.2 g/dL (11.2-15.7); Lymphocytes % 8.6; MCH 28.9 pg (27.0-33.0); MCV 87.7 fL (80-95); MPV 10.3 fL (8.0-11.0); Monocytes % 0.8; Neutrophils % 86.9; Nucleated RBC 0 %; Platelet Count 233 10^3/uL (130-400); RBC 4.56 10^6/uL (3.93-5.22); RDW 11.9 % (11.7-14.6); RDW-SD 38.3 fL; WBC 6.06 10^3/uL (4.4-10.8)
[2020-10-12 07:36] LABS: ALT 22 U/L (14-59); AST 14 U/L (15-37); Albumin 3.3 g/dL (3.4-5.0); Alkaline Phosphatase 95 U/L (46-116); Anion Gap 12.1 mmol/L (3-11); BUN 14 mg/dL (7-18); Bilirubin, Total 0.9 mg/dL (0.2-1.0); CO2 22.9 mmol/L (21.0-32.0); CREATININE 0.9 mg/dL (0.55-1.02); Calcium 8.8 mg/dL (8.5-10.1); Chloride 105 mmol/L (98-107); Glucose 173 mg/dL (74-106); Potassium 3.9 mmol/L (3.5-5.1); Sodium 140 mmol/L (136-145)
[2020-10-12] MEDS: acetaZOLAMIDE 250 MG TAB 500 MG PO ×2 (09:15→20:56)
[2020-10-12] MEDS: Acetaminophen 325 MG TAB 1000 MG PO (09:15)
[2020-10-12] MEDS: Famotidine 20 MG TAB PO ×2 (09:16→20:56)
--- NOTE | 2020-10-12 10:58 | INITIAL_ITS ---
- If Service Date Differs Date of service: 10/12/20 Time of Service: 10:58 Care Management Initial Assess REASON FOR HOSPITALIZATION:: Acute pyelonephritis PAST MEDICAL HISTORY/PAST SURGICAL HISTORY:: Medical History . ADHD. Anxiety. HTN (hypertension). Migraine. Surgical History . S/P hysterectomy PREVIOUS FUNCTIONAL STATUS/SOCIAL/FAMILY SUPPORTS:: Jennifer recently relocated to [facility] and lives with her father. She has one child who lives in [place]. Jennifer is independent at baseline. CURRENT FUNCTIONAL STATUS:: CM was unable to meet with Jennifer as she was transported to [facility] for an interventional radiologuy procedure (nephrostomy tube) and was gone for much of the day. ADVANCE DIRECTIVES:: none on file Has patient been provided with info about the portal/API?: Yes Did the patient sign up for the portal?: No CODE STATUS:: Full Code INSURANCE COVERAGE / FINANCIAL ISSUES:: self pay - has [place] Medicaid CURRENT HOME/COMMUNITY SERVICES/EQUIPMENT:: none PRIMARY CARE PHYSICIAN:: none POTENTIAL DISCHARGE NEEDS:: establish with PCP PATIENT/FAMILY EDUCATION NEEDS:: Review of discharge instructions, medications, follow up care, [facility] TRANSPORTATION:: via private vehicle PLAN:: Anticipate Jennifer will be discharged home with no new services. She will follow up with her community providers and plan of care. CM will continue to support patient and assess for discharge planning needs.
--- NOTE | 2020-10-12 11:41 | SCONE_ITS ---
Assessment and Plan Assessment and plan (1) Abnormal CT scan, gastrointestinal tract: Status: Acute Assessment and plan: Mrs Ignacio is a pleasant 59 year old female with a kidney stone and pylonephritis. CT scan showed a mildly dilated Appendix at 8 mm. I reviewed the CT scan and can't appreciate any fat stranding. There is air within the appendix and no fecolith. I do not feel that the patient has appendicitis. Continue care for her stone. If patient develops more RLQ pain after her stone has been delt with then please let us know. We will sign off for now I spent 45 minutes in reviewing the record, seeing the patient and documenting in the medical record. History of Present Illness History of Present Illness Chief Complaint: Dilated Appendix on CT scan Narrative: This is a 59-year-old female patient who began to have right lower back and flank pain 6 PM the evening that she presented to the ED for evalua tion. She denies any fever or chills and has had no urinary symptoms or gross hematuria noted. She does have a history of staghorn calculus diagnosed about a year ago when she lived in [place]. She also has a history of migraine headaches, hypertension and ADHD on medical therapy. In the ED she had no right lower quadrant discomfort reported even though she had a CT scan revealing an abnormal appearing appendix. In the ED patient was found to have emphysematous pyelonephritis on the right with her staghorn calculus but no overt ureteral obstruction though there was some mild hydronephrosis. She was admitted for IV hydration, IV antibiotics and urology consultation in the morning if available. I reviewed the CT scan- The appendix is mildly dilated, but there is no inflammation around the appendix. There is air within the appendix, so there is no obstruction. This morning she complains of back pain mostly. She has been afebrile and has not had a leukocytosis. Consults Consult date: 10/12/20 Requesting physician: Gena Orellana Review of Systems Constitutional Constitutional: Denies fatigue, Denies fever(s), Denies headache(s), Denies night sweats and Denies weight loss Eyes Eyes: Denies change in vision ENT Ears, Nose, Mouth, and Throat: Denies change in voice, Denies dysphagia and Denies headache(s) Cardiovascular Cardiovascular: Denies chest pain, Denies irregular heart rhythm, Denies palpitations and Denies dyspnea Respiratory Respiratory: Denies cough and Denies dyspnea Gastrointestinal Gastrointestinal: Reports as per HPI and Denies dysphagia Genitourinary Genitourinary: Reports system reviewed and no additional complaints, except as documented Musculoskeletal Musculoskeletal: Reports system reviewed and no additional complaints, except as documented Integumentary/Breasts Skin/Breast: Reports system reviewed and no additional complaints, except as documented Neurologic Neurologic: Reports system reviewed and no additional complaints, except as d ocumented and Denies headache(s) Psychiatric Psychiatric: Reports system reviewed and no additional complaints, except as documented Endocrine Endocrine: Reports system reviewed and no additional complaints, except as documented, Denies fatigue and Denies palpitations Hematologic/Lymphatic Hematologic/Lymphatic: Reports system reviewed and no additional complaints, except as documented PFSH Medical History ADHD Anxiety HTN (hypertension) Migraine Surgical History S/P hysterectomy Social History Smoking/Tobacco Use Status: Never Smoking risk assessment performed?: Yes Alcohol Intake: current Alcohol Intake frequency: a few times a month Drug use: Never Substance use type: does not use Do you feel safe at home: Yes Do you feel safe in your relationship?: Yes Exam Const General: cooperative, comfortable and no acute distress Orientation: alert and oriented x3 HENMT Head: normocephalic and atraumatic Resp Effort & Inspection: normal respiratory effort Auscultation: clear to auscultation bilaterally Cardio Rate: regular rate Rhythm: regular rhythm GI Inspection: normal to inspection Palpation: soft, no hepatosplenomegaly and nontender Auscultation: normal bowel sounds Results Last Vital Signs Temp 99.3 F 10/12/20 07:13 Pulse 99 H 10/12/20 07:13 Resp 20 10/12/20 07:13 BP 113/73 10/12/20 07:13 Pulse Ox 96 10/12/20 07:13 Labs Result diagrams: 10/12/20 06:07 10/12/20 06:07 Labs: Laboratory Results - last 24 hr 10/12/20 10/12/20 10/12/20 03:00 03:00 03:15 WBC 9.95 RBC 4.70 Hgb 13.9 Hct 41.6 MCV 88.5 MCH 29.6 MCHC 33.4 RDW 11.9 Plt Count 286 MPV 9.8 Immature Gran % 0.2 Neutrophils % 75.2 Lymphocytes % 13.5 Monocytes % 8.6 Eosinophils % 1.9 Basophils % 0.6 Nucleated RBC % 0 Absolute Neutrophils 7.48 H Absolute Lymphocytes 1.34 Absolute Monocytes 0.86 H Absolute Eosinophils 0.19 Absolute Basophils 0.06 Sodium 139 Potassium 4.1 Chloride 105 Carbon Dioxide 28.3 Anion Gap 5.7 BUN 12 Creatinine 0.7 Estimated GFR/1.73 m2 >= 60.00 Glucose 169 H Calcium 9.1 Magnesium 1.8 Total Bilirubin 0.7 AST 13 L ALT 25 Alkaline Phosphatase 95 Total Protein 7.8 Albumin 3.5 Lipase 86 Urine Color Yellow Urine Clarity Cloudy Urine pH 5.5 Ur Specific [place] 1.025 Urine Protein 100 H Urine Ketones Negative Urine Blood Large H Urine Nitrite Positive H Urine Bilirubin Negative Urine Urobilinogen 0.2 Ur Leukocyte Esterase Moderate H Urine RBC Urine WBC >50 H Ur Epithelial Cells Not Applicable Urine Crystals Not Applicable Urine Bacteria Not Applicable Urine Mucus Not Applicable Ur Culture Indicated? Yes Urine Glucose Negative COVID-19 Source SARS-CoV-2 (PCR) 10/12/20 10/12/20 10/12/20 04:55 06:07 06:07 WBC 6.06 D RBC 4.56 Hgb 13.2 Hct 40.0 MCV 87.7 MCH 28.9 MCHC 33.0 RDW 11.9 Plt Count 233 MPV 10.3 Immature Gran % 2.0 Neutrophils % 86.9 Lymphocytes % 8.6 Monocytes % 0.8 Eosinophils % 1.2 Basophils % 0.5 Nucleated RBC % 0 Absolute Neutrophils 5.27 Absolute Lymphocytes 0.52 L Absolute Monocytes 0.05 L Absolute Eosinophils 0.07 Absolute Basophils 0.03 Sodium 140 Potassium 3.9 Chloride 105 Carbon Dioxide 22.9 Anion Gap 12.1 H BUN 14 Creatinine 0.9 Estimated GFR/1.73 m2 >= 60.00 Glucose 173 H Calcium 8.8 Magnesium Total Bilirubin 0.9 AST 14 L ALT 22 Alkaline Phosphatase 95 Total Protein 7.0 Albumin 3.3 L Lipase Urine Color Urine Clarity Urine pH Ur Specific [place] Urine Protein Urine Ketones Urine Blood Urine Nitrite Urine Bilirubin Urine Urobilinogen Ur Leukocyte Esterase Urine RBC Urine WBC Ur Epithelial Cells Urine Crystals Urine Bacteria Urine Mucus Ur Culture Indicated? Urine Glucose COVID-19 Source Nasal/Nares SARS-CoV-2 (PCR) Negative
--- NOTE | 2020-10-12 11:46 | CHAPLAIN ---
Jennifer was in bed when I visited, and uncomfortable. She is waiting to hear if she will be transferred to [facility] because of a kidney stone, she said. 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 She lives in [facility] [place] [facility] and said she's been in touch with family by phone.
[2020-10-12] MEDS: Normal Saline 1,000 ML 1000 ML IV (12:19)
[2020-10-12] MEDS: fentaNYL 100 MCG/2 ML VIAL 25 MCG IVP ×2 (12:41→18:54)
--- NOTE | 2020-10-12 18:03 | W.PM.PROGNOT ---
Date of Service Date of service: 10/12/20 Time of Service: 11:00 Assessment and Plan Assessment and plan (1) Gram-negative bacteremia: Status: Acute Assessment and plan: Due to pyelonephritis (emphysematous), present on admission, associated with an obstructing staghorn calculus. Nephrostomy tube today. Continue empiric levofloxacin. Repeat blood cultures in am. Urology consulted. Continue aggressive IVF. (2) Pyelonephritis, acute: Status: Acute Assessment and plan: As above (3) Renal calculus, right: Status: Acute Assessment and plan: As above the patient will be seen by urology in-house tomorrow (4) Hydronephrosis: Status: Acute Assessment and plan: As above (5) Appendicitis: Status: Ruled-out Assessment and plan: Evaluated by general surgery who do not feel that the findings on CT are supported clinically. Qualifiers: Appendicitis type: acute appendicitis Acute appendicitis type: other Qualified Code(s): K35.890 - Other acute appendicitis without perforation or gangrene (6) DVT prophylaxis: Status: Acute Assessment and plan: SCDs Hold chemical DVTppx in anticipation of potential urologic procedure tomorrow. (7) Discharge planning issues: Status: Acute Assessment and plan: Full code Continues to require hospitalization Subjective Subjective Interval history since last seen: Ms Ignacio reported right flank pain. She was somnolent this morning after the dose of 50 mg of IV fentanyl and requested that it be decreased. Denied dizziness, chest pain, shortness of breath. Her nausea had resolved. We do not have urology in-house today. Case was discussed with [facility] - no urology beds. [facility] - discussed with Dr Irizarry of urology,who reviewed the case and recommended nephrostomy tube placement by IR. Discussed case with Dr Lemus of IR who agreed to accept the patient for a [id number] transfer to [facility] for nephrostomy. He also had the case reviewed with [facility] urology, who are planning to address the staghorn stone surgically. The patient was in agreement with this plan. Exam Narrative Exam Narrative: General: Very pleasant middle-aged female who is talking about her trip to [place], A&Ox3, does not appear in acute distress, HEENT: EOMI, MMM Heart: RRR, mildly tachycardic Lungs: CTAB Abdomen: soft,nontender, nondistended Extremities: no edema BLE's Objective Last Vital Signs Temp 37.4 C 10/12/20 11:22 Pulse 88 10/12/20 11:22 Resp 19 10/12/20 11:22 BP 100/66 10/12/20 12:46 Pulse Ox 97 10/12/20 11:22 Laboratory Results - last 24 hr 10/12/20 10/12/20 10/12/20 03:00 03:00 03:15 WBC 9.95 RBC 4.70 Hgb 13.9 Hct 41.6 MCV 88.5 MCH 29.6 MCHC 33.4 RDW 11.9 Plt Count 286 MPV 9.8 Immature Gran % 0.2 Neutrophils % 75.2 Lymphocytes % 13.5 Monocytes % 8.6 Eosinophils % 1.9 Basophils % 0.6 Nucleated RBC % 0 Absolute Neutrophils 7.48 H Absolute Lymphocytes 1.34 Absolute Monocytes 0.86 H Absolute Eosinophils 0.19 Absolute Basophils 0.06 Sodium 139 Potassium 4.1 Chloride 105 Carbon Dioxide 28.3 Anion Gap 5.7 BUN 12 Creatinine 0.7 Estimated GFR/1.73 m2 >= 60.00 Glucose 169 H Calcium 9.1 Magnesium 1.8 Total Bilirubin 0.7 AST 13 L ALT 25 Alkaline Phosphatase 95 Total Protein 7.8 Albumin 3.5 Lipase 86 Urine Color Yellow Urine Clarity Cloudy Urine pH 5.5 Ur Specific [place] 1.025 Urine Protein 100 H Urine Ketones Negative Urine Blood Large H Urine Nitrite Positive H Urine Bilirubin Negative Urine Urobilinogen 0.2 Ur Leukocyte Esterase Moderate H Urine RBC Urine WBC >50 H Ur Epithelial Cells Not Applicable Urine Crystals Not Applicable Urine Bacteria Not Applicable Urine Mucus Not Applicable Ur Culture Indicated? Yes Urine Glucose Negative COVID-19 Source SARS-CoV-2 (PCR) 10/12/20 10/12/20 10/12/20 04:55 06:07 06:07 WBC 6.06 D RBC 4.56 Hgb 13.2 Hct 40.0 MCV 87.7 MCH 28.9 MCHC 33.0 RDW 11.9 Plt Count 233 MPV 10.3 Immature Gran % 2.0 Neutrophils % 86.9 Lymphocytes % 8.6 Monocytes % 0.8 Eosinophils % 1.2 Basophils % 0.5 Nucleated RBC % 0 Absolute Neutrophils 5.27 Absolute Lymphocytes 0.52 L Absolute Monocytes 0.05 L Absolute Eosinophils 0.07 Absolute Basophils 0.03 Sodium 140 Potassium 3.9 Chloride 105 Carbon Dioxide 22.9 Anion Gap 12.1 H BUN 14 Creatinine 0.9 Estimated GFR/1.73 m2 >= 60.00 Glucose 173 H Calcium 8.8 Magnesium Total Bilirubin 0.9 AST 14 L ALT 22 Alkaline Phosphatase 95 Total Protein 7.0 Albumin 3.3 L Lipase Urine Color Urine Clarity Urine pH Ur Specific [place] Urine Protein Urine Ketones Urine Blood Urine Nitrite Urine Bilirubin Urine Urobilinogen Ur Leukocyte Esterase Urine RBC Urine WBC Ur Epithelial Cells Urine Crystals Urine Bacteria Urine Mucus Ur Culture Indicated? Urine Glucose COVID-19 Source Nasal/Nares SARS-CoV-2 (PCR) Negative
--- NOTE | 2020-10-12 20:20 | NUR.NOTE ---
Nursing Note: Patent was received back form [facility] via stretcher Patient is alert but in pain asking for us to help her medications given Patient has a right nephrostomy tube to drainage bag with red blood drainage dressing is dry and intact Original Note: Nursing Note:patient to sedated to swallow tylenol charge nurse made aware to get order for differnt route
--- NOTE | 2020-10-12 20:34 | W.PM.PROGNOT ---
Date of Service Date of service: 10/12/20 Time of Service: 20:34 Assessment and Plan Assessment and plan (1) Gram-negative bacteremia: Status: Acute Assessment and plan: awaiting cultures, source urine. continue levofloxacin day 03/17 fever management vitals are stable, closely monitor continue IV fluids, bolus as needed (2) Renal calculus, right: Status: Acute Assessment and plan: nephrostomy tube placed at [facility] Dr Kwok will follow here for further stone management. will be NPO after midnight for possible procedure. Subjective Subjective Patient reports: still having pain, tolerating liquids well and fever; denies shortness of breath and afebrile Interval history since last seen: patient returns from [facility] after nephrostomy tube placement. her pain is managed. she has temp of 39.5 with normal heart rate and blood pressure. she is noted to drop sats into the high 80's while sleeping. oxygen in applied at 2 liter nc with sats improved to high 90's. her right sided nephrostomy tube is patent draining bloody drainage. she is tolerating fluids, declines dinner Exam Const General: cooperative and in distress moderate Nutritional Appearance: overweight Orientation: awake (sedate but easily arouses) and oriented x3 [facility] Head: normal to inspection Mouth: moist mucous membranes abnormal (slightly dry) Resp Effort & Inspection: normal respiratory effort and able to speak in complete sentences Cardio Rate: regular rate Rhythm: regular rhythm General: other (blood drainage from right nephrostomy tube) Skin Rashes: no rashes Neuro General: patient oriented x3 and no focal motor deficits Extrem General: normal to inspection, full ROM and no pedal edema Objective Last Vital Signs Temp 39.8 C H 10/12/20 19:42 Pulse 98 H 10/12/20 19:42 Resp 28 H 10/12/20 19:42 BP 147/79 H 10/12/20 19:42 Pulse Ox 92 10/12/20 19:42 Laboratory Results - last 24 hr 10/12/20 10/12/20 10/12/20 03:00 03:00 03:15 WBC 9.95 RBC 4.70 Hgb 13.9 Hct 41.6 MCV 88.5 MCH 29.6 MCHC 33.4 RDW 11.9 Plt Count 286 MPV 9.8 Immature Gran % 0.2 Neutrophils % 75.2 Lymphocytes % 13.5 Monocytes % 8.6 Eosinophils % 1.9 Basophils % 0.6 Nucleated RBC % 0 Absolute Neutrophils 7.48 H Absolute Lymphocytes 1.34 Absolute Monocytes 0.86 H Absolute Eosinophils 0.19 Absolute Basophils 0.06 Sodium 139 Potassium 4.1 Chloride 105 Carbon Dioxide 28.3 Anion Gap 5.7 BUN 12 Creatinine 0.7 Estimated GFR/1.73 m2 >= 60.00 Glucose 169 H Calcium 9.1 Magnesium 1.8 Total Bilirubin 0.7 AST 13 L ALT 25 Alkaline Phosphatase 95 Total Protein 7.8 Albumin 3.5 Lipase 86 Urine Color Yellow Urine Clarity Cloudy Urine pH 5.5 Ur Specific [place] 1.025 Urine Protein 100 H Urine Ketones Negative Urine Blood Large H Urine Nitrite Positive H Urine Bilirubin Negative Urine Urobilinogen 0.2 Ur Leukocyte Esterase Moderate H Urine RBC Urine WBC >50 H Ur Epithelial Cells Not Applicable Urine Crystals Not Applicable Urine Bacteria Not Applicable Urine Mucus Not Applicable Ur Culture Indicated? Yes Urine Glucose Negative COVID-19 Source SARS-CoV-2 (PCR) 10/12/20 10/12/20 10/12/20 04:55 06:07 06:07 WBC 6.06 D RBC 4.56 Hgb 13.2 Hct 40.0 MCV 87.7 MCH 28.9 MCHC 33.0 RDW 11.9 Plt Count 233 MPV 10.3 Immature Gran % 2.0 Neutrophils % 86.9 Lymphocytes % 8.6 Monocytes % 0.8 Eosinophils % 1.2 Basophils % 0.5 Nucleated RBC % 0 Absolute Neutrophils 5.27 Absolute Lymphocytes 0.52 L Absolute Monocytes 0.05 L Absolute Eosinophils 0.07 Absolute Basophils 0.03 Sodium 140 Potassium 3.9 Chloride 105 Carbon Dioxide 22.9 Anion Gap 12.1 H BUN 14 Creatinine 0.9 Estimated GFR/1.73 m2 >= 60.00 Glucose 173 H Calcium 8.8 Magnesium Total Bilirubin 0.9 AST 14 L ALT 22 Alkaline Phosphatase 95 Total Protein 7.0 Albumin 3.3 L Lipase Urine Color Urine Clarity Urine pH Ur Specific [place] Urine Protein Urine Ketones Urine Blood Urine Nitrite Urine Bilirubin Urine Urobilinogen Ur Leukocyte Esterase Urine RBC Urine WBC Ur Epithelial Cells Urine Crystals Urine Bacteria Urine Mucus Ur Culture Indicated? Urine Glucose COVID-19 Source Nasal/Nares SARS-CoV-2 (PCR) Negative
[2020-10-12] MEDS: ACETAMINOPHEN 1,000 MG/100 ML BTL 400 MG IVPB (20:37)
[2020-10-13] VITALS (9 sets, daily range): BP systolic 99–125; BP diastolic 55–72; PULSE 64–88; RESP 17–20; TEMP 36.3–39.1; O2SAT 95–97
[2020-10-13] MEDS: Normal Saline 1,000 ML 150 ML IV (01:47)
[2020-10-13] MEDS: Ketorolac 15 MG/ML VIAL IVP (04:01)
[2020-10-13] MEDS: Normal Saline Flush 10 ML SYR IVP ×5 (04:01→19:57)
[2020-10-13] MEDS: levoFLOXacin 750 MG/150 ML BAG 100 MG IVPB (05:54)
[2020-10-13] MEDS: ACETAMINOPHEN 1,000 MG/100 ML BTL 400 MG IVPB ×2 (06:16→14:16)
[2020-10-13 07:50] LABS: Abs Immature Grans 0.06 10^3/uL (0.0-0.06); Absolute Basophil Count 0.05 10^3/uL (0.0-0.2); Absolute Eosinophil Count 0.06 10^3/uL (0.0-0.7); Absolute Lymphocyte Count 1.19 10^3/uL (1.2-3.4); Absolute Monocyte Count 0.72 10^3/uL (0.1-0.8); Basophils % 0.5; Eosinophils % 0.6; HCT 33.4 % (36.0-46.0); HGB 11.2 g/dL (11.2-15.7); Immature Grans % 0.6; Lymphocytes % 12.4; MCH 30.2 pg (27.0-33.0); MCHC 33.5 % (32.0-36.0); Monocytes % 7.5; Neutrophils % 78.4; Nucleated RBC 0 %; Platelet Count 159 10^3/uL (130-400); RBC 3.71 10^6/uL (3.93-5.22); RDW 12.3 % (11.7-14.6); RDW-SD 40.3 fL; WBC 9.58 10^3/uL (4.4-10.8)
[2020-10-13 07:53] LABS: Absolute Neutrophil Count 7.51 10^3/uL (1.2-6.7)
[2020-10-13 08:14] LABS: Anion Gap 10.5 mmol/L (3-11); BUN 14 mg/dL (7-18); C-Reactive Protein 16.57 mg/dL (0.0-0.3); CO2 18.5 mmol/L (21.0-32.0); CREATININE 0.7 mg/dL (0.55-1.02); Calcium 7.8 mg/dL (8.5-10.1); Chloride 110 mmol/L (98-107); Glucose 131 mg/dL (74-106); Magnesium 1.6 mg/dL (1.8-2.4); Potassium 3.1 mmol/L (3.5-5.1); Sodium 139 mmol/L (136-145)
[2020-10-13] MEDS: Aspirin E.C. 81 MG TABEC PO (08:32)
[2020-10-13] MEDS: Famotidine 20 MG TAB PO ×2 (08:32→19:56)
[2020-10-13 09:00] LABS: Procalcitonin 63.1 ng/mL
[2020-10-13] MEDS: MAGNESIUM SULFATE 2 GM/50 ML BAG IVPB (09:41)
[2020-10-13] MEDS: Potassium Chloride 20 MEQ TABCR 40 MEQ PO (09:41)
--- NOTE | 2020-10-13 10:22 | CMPROGNOTE_ITS ---
- If Service Date Differs Date of service: 10/13/20 Time of Service: 10:22 Care Management Progress Note S/O:Jennifer was laying in bed when CM met with her. She was obviously in pain, writhing in bed and massaging her abdomen. She was able to answer a couple of questions but was disinclined to converse with CM. Additional interactions will be deferred until tomorrow. Jennifer has recently relocated from [place] and has no PCP or [place]. insurance. These will be discussed tomorrow. A: Jennifer is a 59 year old woman admitted on 10/12/20 with pyelonephritis P:Anticipate Jennifer will be discharged home with no new services. She will follow up with her community providers and plan of care. CM will continue to support patient and assess for discharge planning needs
[2020-10-13] MEDS: Ketorolac 15 MG/ML VIAL 30 MG IVP ×2 (11:11→19:56)
[2020-10-13] MEDS: Lactated Ringers 1,000 ML 150 ML IV ×2 (11:31→22:08)
[2020-10-13] MEDS: Ondansetron 4 MG/2 ML VIAL IVP (11:32)
--- NOTE | 2020-10-13 13:40 | CHAPLAIN ---
Jennifer was resting in bed, clearly in some pain. She said she doing ok, but not up for a conversation. Her step mother and brother may visit today. I will continue to visit.
--- NOTE | 2020-10-13 13:42 | W.UROLOGYCON ---
Date of service: 10/13/20 Time of Service: 13:42 Assessment and Plan Assessment and plan (1) Renal calculus, right: Status: Acute (2) Gram-negative bacteremia: Status: Acute Assessment and plan: Now that the right kidney has been drained, she will require antibiotics. Ultimately, she will need a percutaneous nephrolithotomy for stone of this size. As arrangements were made with [facility] yesterday, a request was made for a 2-week appointment with Dr. Daryl Mcdonnell who performs the percutaneous nephrolithotomy surgery. Such surgery is not available here at our facility. Once the percutaneous nephrolithotomy has been completed, I am willing and able to do her follow-up closer to home if that is easier for the patient. History of Present Illness History of Present Illness Chief Complaint: Urosepsis Narrative: This is a 59-year-old woman who was previously identified as having a staghorn calculus. At the time, she was in [place], [place] and was being evaluated for back pain. She did not have signs or symptoms of a UTI or pyelonephritis at that time. No specific treatment was planned. She presented to our emergency room yesterday with signs and symptoms of urosepsis. She has E. coli growing in her blood and urine. CT scan done through our emergency room confirms the presence of a large staghorn stone and the presence of gas in the collecting system. She was urgently sent down to [facility] for a right sided nephrostomy tube and started on broad-spectrum antibiotics. Immediately after the nephrostomy tube was placed, she spiked a temperature, but since then, she has been afebrile. She is not aware of previous urinary tract infections or episodes of sepsis. Review of Systems Narrative: C/O fevers and chills No vision change or dysphasia No diabetes or thyroid dysfunction No shortness of breath, cough or hemoptysis No palpitations No nausea, vomiting, hepatitis, ulcers, jaundice Hx migraine headaches. No seizures, strokes No bleeding disorders or anemia No gout PFSH Medical History ADHD Anxiety HTN (hypertension) Migraine Surgical History S/P hysterectomy Social History Smoking/Tobacco Use Status: Never Smoking risk assessment performed?: Yes Alcohol Intake: current Alcohol Intake frequency: a few times a month Drug use: Never Substance use type: does not use Do you feel safe at home: Yes Do you feel safe in your relationship?: Yes Exam Narrative Exam Narrative: She appears flushed and uncomfortable Her vital signs are documented elsewhere Her abdomen is obese but soft with no mass Her nephrostomy tube is draining pink-tinged urine She is awake and alert I reviewed her CT scan on the PACS system. There is a large staghorn stone in the right kidney with air in the collecting system. This CT was done prior to the nephrostomy tube placement. Results Last Vital Signs Temp 37.6 C H 10/13/20 12:11 Pulse 80 10/13/20 11:57 Resp 19 10/13/20 11:57 BP 115/66 10/13/20 11:57 Pulse Ox 97 10/13/20 11:57 Labs Result diagrams: 10/13/20 07:36 10/13/20 07:36 Labs: Laboratory Results - last 24 hr 10/13/20 10/13/20 10/13/20 07:36 07:36 07:36 WBC 9.58 D RBC 3.71 L Hgb 11.2 Hct 33.4 L MCV 90.0 MCH 30.2 MCHC 33.5 RDW 12.3 Plt Count 159 MPV 10.0 Immature Gran % 0.6 Neutrophils % 78.4 Lymphocytes % 12.4 Monocytes % 7.5 Eosinophils % 0.6 Basophils % 0.5 Nucleated RBC % 0 Absolute Neutrophils 7.51 H Absolute Lymphocytes 1.19 L Absolute Monocytes 0.72 Absolute Eosinophils 0.06 Absolute Basophils 0.05 Sodium 139 Potassium 3.1 L Chloride 110 H Carbon Dioxide 18.5 L Anion Gap 10.5 BUN 14 Creatinine 0.7 Estimated GFR/1.73 m2 >= 60.00 Glucose 131 H Calcium 7.8 L Magnesium 1.6 L C-Reactive Protein 16.57 H Procalcitonin 63.1
[2020-10-13] MEDS: fentaNYL 100 MCG/2 ML VIAL 12.5 MCG IVP (15:52)
--- NOTE | 2020-10-13 16:03 | PGE_ITS ---
Date of Service Date of service: 10/13/20 Time of Service: 16:03 Assessment and Plan Assessment and plan (1) E. coli sepsis: Status: Acute Assessment and plan: Due to pyelonephritis (emphysematous), present on admission, associated with an obstructing staghorn calculus. Does have bacteremia. S/p Nephrostomy tube at [facility] on 10/12/20. Repeat blood cultures done this morning. Trend CRP, procalcitonin. Continue levofloxacin; add rocephin as persistently has high fevers. Also, add vancomycin as the patient did get instrumented. Case discussed with Dr Kwok: the patient is going to need percutaneous nephrolithotomy and will need an extended course of oral antibiotics once she is better. She would be discharged home with a nephrostomy tube when ready. Continue aggressive IVF. (2) Pyelonephritis, acute: Status: Acute Assessment and plan: As above (3) Renal calculus, right: Status: Acute Assessment and plan: As above (4) Hydronephrosis: Status: Acute Assessment and plan: R-sided, As above (5) Appendicitis: Status: Ruled-out Assessment and plan: Evaluated by general surgery who do not feel that the findings on CT are supported clinically. On today's exam, I also do not think that the patient's pain is appendicitis type pain. Qualifiers: Appendicitis type: acute appendicitis Acute appendicitis type: other Qualified Code(s): K35.890 - Other acute appendicitis without perforation or gangrene (6) Hypokalemia: Status: Acute Assessment and plan: replete (7) Hypomagnesemia: Status: Acute Assessment and plan: replete (8) DVT prophylaxis: Status: Acute Assessment and plan: Start sc heparin (9) Discharge planning issues: Status: Acute Assessment and plan: Full code Continues to require hospitalization Subjective Subjective Interval history since last seen: Ms Ignacio states that she just started having R-sided abdominal pain about 20 minutes ago. She is tired and wants to sleep but is scared to take fentanyl because it snows her. She has been febrile all day. Tmax 39.8. It is currently 38.1. Otherwise, pain is controlled. No dizziness, chest pain, shortness of breath. Nephrostomy tube became clogged overnight but started having output again after flushing. Exam Narrative Exam Narrative: General: Very pleasant middle-aged female who is visibly uncomfortable and in pain, A&Ox3 HEENT: EOMI, MMM Heart: RRR, no m/r/g Lungs: CTAB Abdomen: soft,tender mid-right abdomen, but not where one would expect appendicitis pain, R nephrostomy tube with yellow-pinkish urine Extremities: no edema BLE's Objective Last Vital Signs Temp 38.1 C H 10/13/20 15:56 Pulse 86 10/13/20 15:56 Resp 18 10/13/20 15:56 BP 125/70 10/13/20 15:56 Pulse Ox 97 10/13/20 15:56 Laboratory Results - last 24 hr 10/13/20 10/13/20 10/13/20 07:36 07:36 07:36 WBC 9.58 D RBC 3.71 L Hgb 11.2 Hct 33.4 L MCV 90.0 MCH 30.2 MCHC 33.5 RDW 12.3 Plt Count 159 MPV 10.0 Immature Gran % 0.6 Neutrophils % 78.4 Lymphocytes % 12.4 Monocytes % 7.5 Eosinophils % 0.6 Basophils % 0.5 Nucleated RBC % 0 Absolute Neutrophils 7.51 H Absolute Lymphocytes 1.19 L Absolute Monocytes 0.72 Absolute Eosinophils 0.06 Absolute Basophils 0.05 Sodium 139 Potassium 3.1 L Chloride 110 H Carbon Dioxide 18.5 L Anion Gap 10.5 BUN 14 Creatinine 0.7 Estimated GFR/1.73 m2 >= 60.00 Glucose 131 H Calcium 7.8 L Magnesium 1.6 L C-Reactive Protein 16.57 H Procalcitonin 63.1
[2020-10-13] MEDS: cefTRIAXone 2 GM/50 ML BAG IVPB (17:24)
--- NOTE | 2020-10-13 17:30 | NUR.NOTE ---
Nursing Note:patients temp 1415 was 38.5 and patient was given iv Tylenol and charge nurse was made aware at 1500 temp 39 charge nurse made aware at [address] Fernando was present and aware of temperatures at that time the patient let her know that she was having right lateral/flank pain 07/11 Dr. Fernando assessed her and advised me to give her a dose of her Fentanyl which was given
[2020-10-13] MEDS: VANCOMYCIN/WATER (PEG) 2 GM/400 ML BAG IVPB (17:48)
[2020-10-13] MEDS: Heparin 5,000 UNITS/ML VIAL 5000 UNITS SC (17:48)
[2020-10-13] MEDS: acetaZOLAMIDE 250 MG TAB 500 MG PO (19:57)
[2020-10-13] MEDS: Zolpidem 5 MG TAB PO (21:32)
[2020-10-14] VITALS (10 sets, daily range): BP systolic 105–137; BP diastolic 66–85; PULSE 67–89; RESP 18–20; TEMP 36.3–39.5; O2SAT 96–100
[2020-10-14] MEDS: Heparin 5,000 UNITS/ML VIAL 5000 UNITS SC ×3 (01:50→17:40)
[2020-10-14] MEDS: VANCOMYCIN/WATER (PEG) 1.25 GM/250 ML BAG IV ×3 (01:50→20:05)
[2020-10-14] MEDS: ACETAMINOPHEN 1,000 MG/100 ML BTL 400 MG IVPB ×3 (03:00→23:33)
[2020-10-14] MEDS: levoFLOXacin 750 MG/150 ML BAG 100 MG IVPB (05:21)
[2020-10-14 06:39] LABS: Abs Immature Grans 0.06 10^3/uL (0.0-0.06); Absolute Basophil Count 0.02 10^3/uL (0.0-0.2); Absolute Eosinophil Count 0.01 10^3/uL (0.0-0.7); Absolute Lymphocyte Count 1.08 10^3/uL (1.2-3.4); Absolute Monocyte Count 0.71 10^3/uL (0.1-0.8); Absolute Neutrophil Count 7.71 10^3/uL (1.2-6.7); Basophils % 0.2; Eosinophils % 0.1; HCT 32.1 % (36.0-46.0); HGB 10.6 g/dL (11.2-15.7); Immature Grans % 0.6; Lymphocytes % 11.3; MCH 29.7 pg (27.0-33.0); MCV 89.9 fL (80-95); MPV 10.2 fL (8.0-11.0); Monocytes % 7.4; Neutrophils % 80.4; Nucleated RBC 0 %; Platelet Count 161 10^3/uL (130-400); RBC 3.57 10^6/uL (3.93-5.22); RDW 12.2 % (11.7-14.6); RDW-SD 39.9 fL; WBC 9.59 10^3/uL (4.4-10.8)
[2020-10-14 07:30] LABS: Anion Gap 11.3 mmol/L (3-11); BUN 10 mg/dL (7-18); C-Reactive Protein 20.55 mg/dL (0.0-0.3); CO2 17.7 mmol/L (21.0-32.0); CREATININE 0.8 mg/dL (0.55-1.02); Calcium 7.9 mg/dL (8.5-10.1); Chloride 109 mmol/L (98-107); Glucose 164 mg/dL (74-106); Magnesium 1.7 mg/dL (1.8-2.4); Potassium 3.3 mmol/L (3.5-5.1); Sodium 138 mmol/L (136-145)
[2020-10-14] MEDS: Ketorolac 15 MG/ML VIAL 30 MG IVP ×3 (08:09→22:54)
[2020-10-14] MEDS: Aspirin E.C. 81 MG TABEC PO (08:09)
[2020-10-14] MEDS: Famotidine 20 MG TAB PO ×2 (08:10→20:05)
[2020-10-14] MEDS: acetaZOLAMIDE 250 MG TAB 500 MG PO ×2 (08:11→20:05)
[2020-10-14] MEDS: Normal Saline Flush 10 ML SYR IVP ×3 (08:12→14:48)
[2020-10-14] MEDS: Lactated Ringers 1,000 ML 150 ML IV ×2 (08:14→20:32)
[2020-10-14] MEDS: POTASSIUM CHLORIDE 20 MEQ/100 ML BAG 50 MEQ IVPB ×2 (09:58→12:21)
[2020-10-14] MEDS: MAGNESIUM SULFATE 2 GM/50 ML BAG IVPB (09:59)
--- NOTE | 2020-10-14 11:21 | PDOC.CMPRO ---
- If Service Date Differs Date of service: 10/14/20 Time of Service: 11:21 Care Management Progress Note S/O:Jennifer was laying in bed when CM met with her. She shared that her pain was better but that she was still uncomfortable. CM discussed Jennifer's insurance needs with her and she seemed reluctant to accept [place] Medicaid as she hoped to be employed soon. She currently has [place] Medicaid.She stated that she is an [employer] and has received job offers from [facility] [employer] [facility] as well as [employer]. Jennifer explained that she has recently returned from [place] where she got . She stayed for 2 months and will return at some point before her can obtain a spousal visa to join her. Jennifer also does not have a PCP in the area but again, is not sure she wants to pursue that at this point . She takes medications that not all providers, in her experience, are willing to prescribe. CM will continue to work with Jennifer to pursue solutions for these unmet needs. A: Jennifer is a 59 year old woman admitted on 10/12/20 with pyelonephritis P:Anticipate Jennifer will be discharged home with no new services. She will follow up with her community providers and plan of care. CM will continue to support patient and assess for discharge planning needs
--- NOTE | 2020-10-14 11:23 | PHA.REVIEW ---
Pharmacy Admission Review - Admission Clinical Review (Last Reviewed 10/12/20 @ 09:22 by Sam Pate) Hypomagnesemia (Acute) Hypokalemia (Acute) E. coli sepsis (Acute) Discharge planning issues (Acute) DVT prophylaxis (Acute) Gram-negative bacteremia (Acute) Hydronephrosis (Acute) Abnormal CT scan, gastrointestinal tract (Acute) Renal calculus, right (Acute) Pyelonephritis, acute (Acute) Penicillins Allergy (Severe, Unverified 10/12/20 04:06) Hives acetaminophen [From Percocet] Adverse Reaction (Intermediate, Verified 10/13/20 16:11) Headache oxycodone [From Percocet] Adverse Reaction (Intermediate, Verified 10/13/20 16:11) Headache Resuscitation Status Full Code Height 5 ft 4 in Weight 99.1 kg - Renal Dosing Renal Dosing: BUN 10 mg/dL (7-18) 10/14/20 06:28 Creatinine 0.8 mg/dL (0.55-1.02) 10/14/20 06:28 Medications needing adjustments: Reviewed (CrCl ~88 mL/min using adjusted body weight. Current meds okay.) - Anticoagulation Anticoagulation: Hgb 10.6 g/dL (11.2-15.7) L 10/14/20 06:28 Hct 32.1 % (36.0-46.0) L 10/14/20 06:28 Plt Count 161 10^3/uL (130-400) 10/14/20 06:28 Creatinine 0.8 mg/dL (0.55-1.02) 10/14/20 06:28 DVT Prophylaxis: Reviewed Medications: Heparin Therapeutic Anticoagulation: N/A - Opiate Usage Evaluate Pain Scale/Pains Meds: Reviewed (IV Fentanyl) Scheduled Bowel Reg ordered if on Opiates?: Yes (docusate) - Relevant Labs Sodium 138 mmol/L (136-145) 10/14/20 06:28 Potassium 3.3 mmol/L (3.5-5.1) L 10/14/20 06:28 Chloride 109 mmol/L (98-107) H 10/14/20 06:28 Magnesium 1.7 mg/dL (1.8-2.4) L 10/14/20 06:28 C-Reactive Protein 20.55 mg/dL (0.0-0.3) H 10/14/20 06:28 Electrolytes, C-Reactive P, ESR: Reviewed (IV K+ and mag ordered this morning) - DM Control DM Control: Glucose 164 mg/dL (74-106) H 10/14/20 06:28 Insulin Dosing: N/A (BG has been elevated so far this admission and has been in the past. No A1c on file. Will monitor and mention to provider.) - Heart Failure/WI EF%, PRINCE's, B-Blockers, Diuretics: N/A (Propanolol) - BP Control BP Control: Blood Pressure 121/73 Blood Pressure 121/66 Blood Pressure 113/65 If elevated: Reviewed - Qtc Review If Elevated: N/A (No EKG on file) - IV to PO Switch IV Medications: Reviewed - Home Meds Home Med List reviewed: Reviewed (Modafinil may decrease the serum concentration of rimegepant; recommended to avoid concomitant use to avoid potential loss of rimegepant efficacy. Aspirin may enhance the adverse/toxic effect of acetazolamide; avoid combination with possible, monitor closely for adverse effects.) Relevent Home Meds Not ordered & why?: cyclobenzaprine(PRN), ibuprofen (has ketorolac ordered), rimegepant (PRN) - Current meds Current Medication Order Review: Reviewed - Comments Comments/Follow Ups: Monitor VS, BG, K+, mag, and for culture results. Monitor for changes in medication therapy and de-escalation of empiric antibiotic coverage Antibiotic Activity - Pharmacy Antibiotic Review Pharmacy Antibiotic Activity: Abx regimen adjustment (Blood cultures show E.coli growth. Awaiting urine culture. Patient on ceftriaxone, and vanco, levofloxacin discontinued today.)
[2020-10-14] MEDS: Ondansetron 4 MG/2 ML VIAL IVP (12:07)
--- NOTE | 2020-10-14 14:59 | PGE_ITS ---
Date of Service Date of service: 10/14/20 Time of Service: 14:59 Assessment and Plan Assessment and plan (1) E. coli sepsis: Status: Acute Assessment and plan: Due to pyelonephritis (emphysematous) with bacteremia, present on admission, associated with an obstructing staghorn calculus. S/p Nephrostomy tube at [facility] on 10/12/20. Repeat blood cultures negative to date. Resistant to levofloxacin - d/c. Continue ceftriaxone high dose. Continue vancomycin x 24 hrs - can d/c if no staph on blood/nephrostomy cultures. Trend CRP, procalcitonin. Per Dr Kwok: the patient is going to need percutaneous nephrolithotomy and will need an extended course of oral antibiotics once she is better. She would be discharged home with a nephrostomy tube when ready. Continue aggressive IVF. (2) Pyelonephritis, acute: Status: Acute Assessment and plan: As above (3) Renal calculus, right: Status: Acute Assessment and plan: As above (4) Hydronephrosis: Status: Acute Assessment and plan: R-sided, As above (5) Appendicitis: Status: Ruled-out Assessment and plan: Evaluated by general surgery who do not feel that the findings on CT are supported clinically. On today's exam, I also do not think that the patient's pain is appendicitis type pain. Qualifiers: Appendicitis type: acute appendicitis Acute appendicitis type: other Qualified Code(s): K35.890 - Other acute appendicitis without perforation or gangrene (6) Hypokalemia: Status: Acute Assessment and plan: replete (7) Hypomagnesemia: Status: Acute Assessment and plan: replete (8) DVT prophylaxis: Status: Acute Assessment and plan: Sc heparin (9) Discharge planning issues: Status: Acute Assessment and plan: Full code Continues to require hospitalization Subjective Subjective Interval history since last seen: Ms Ignacio feels a little better today. She reports a headache and nausea, but overall better. Defervesced this morning. Tmax 39.5 overnight. Pain is controlled. Denies dizziness, chest pain, shortness of breath. Nephrostomy tube required flushing overnight. Exam Narrative Exam Narrative: General: Very pleasant middle-aged female who looks tired, but looks better overall. A&Ox3 HEENT: EOMI, MMM Heart: RRR, no m/r/g Lungs: CTAB Abdomen: soft, nontender, nondistended. R nephrostomy tube with yellow-pinkish urine Extremities: no edema BLE's Objective Last Vital Signs Temp 36.6 C 10/14/20 11:41 Pulse 71 10/14/20 11:41 Resp 20 10/14/20 11:41 BP 105/67 10/14/20 11:41 Pulse Ox 100 10/14/20 11:41 Laboratory Results - last 24 hr 10/14/20 10/14/20 06:28 06:28 WBC 9.59 RBC 3.57 L Hgb 10.6 L Hct 32.1 L MCV 89.9 MCH 29.7 MCHC 33.0 RDW 12.2 Plt Count 161 MPV 10.2 Immature Gran % 0.6 Neutrophils % 80.4 Lymphocytes % 11.3 Monocytes % 7.4 Eosinophils % 0.1 Basophils % 0.2 Nucleated RBC % 0 Absolute Neutrophils 7.71 H Absolute Lymphocytes 1.08 L Absolute Monocytes 0.71 Absolute Eosinophils 0.01 Absolute Basophils 0.02 Sodium 138 Potassium 3.3 L Chloride 109 H Carbon Dioxide 17.7 L Anion Gap 11.3 H BUN 10 Creatinine 0.8 Estimated GFR/1.73 m2 >= 60.00 Glucose 164 H Calcium 7.9 L Magnesium 1.7 L C-Reactive Protein 20.55 H
[2020-10-14 16:23] LABS: Vancomycin, Trough 21.5 ug/mL (10.0-20.0)
[2020-10-14] MEDS: cefTRIAXone 2 GM/50 ML BAG IVPB (16:28)
[2020-10-14] MEDS: Zolpidem 5 MG TAB PO (20:05)
[2020-10-15] VITALS (8 sets, daily range): BP systolic 102–150; BP diastolic 67–84; PULSE 65–86; RESP 16–24; TEMP 36.2–39.4; O2SAT 96–100
--- NOTE | 2020-10-15 | DI.CT_ITS ---
Exam(s) CT ABDOMEN PELVIS W EXAM: CT ABDOMEN PELVIS W CLINICAL HISTORY: pyelonephritis. TECHNIQUE: Imaging Protocol: Axial computed tomography images with coronal and sagittal reformatted images were created and reviewed CONTRAST MATERIAL: Intravenous: Omnipaque 100cc Oral: None COMPARISON: CT CT ABDOMEN PELVIS WO from 10/15/2020 FINDINGS: VISUALIZED LUNG BASES: Previously described finding in the posterior basal segment of the left lower lobe is again noted. This has benign fat appearance. No overlying rib destruction.. ABDOMEN: There is no ascites. LIVER: There are no focal hepatic lesions evident. No dilatation of intrahepatic ducts. GALLBLADDER/BILIARY: No obvious gallbladder pathology. CBD is not dilated. PANCREAS: No evidence of pancreatic mass nor dilatation of the pancreatic duct. SPLEEN: Spleen is not enlarged. No obvious intrasplenic lesions. Splenic and portal veins are paten t. ADRENALS: There are no significant adrenal masses. KIDNEYS: Left kidney again appears unremarkable. The right kidney is again noted to contain a large staghorn calculus in the renal pelvis. A nephrostomy tube in the right kidney is unchanged in positi on from yesterday. The pigtail is again noted to be not reformed but is splayed out with holes rangi ng from the level of the renal pelvis to just below the cortical surface of the kidney. The extraren al course of the right pigtail drainage catheter is not associated with a significant fluid collectio n and crosses between the 11th and 12th ribs and is not associated with inflammatory change in the kearns bcutaneous tissue. I assume that there is some drainage through the nephrostomy tube. Unfortunately , there was no 5 minutes delayed sequence performed which would help determine the effectiveness of t he and patrol position of the pigtail. The distal tip of the pigtail drainage catheter is 5 millimet ers lateral to the staghorn calculus. There is minimal dilatation of the collecting system above thi s level. On the coronal reconstructed images it appears that some of the holes of the pigtail draina ge catheter are outside of the kidney. Nevertheless, there is no obvious urinoma. The right-sided n ephrogram reveals a small benign cyst measuring 6 millimeters, this below the level of the nephrostom y tube. The right ureter is not dilated. No obvious abnormality in the urinary bladder. ABDOMINAL AORTA: Abdominal aorta is not enlarged. LYMPH NODES:There is no retroperitineal nor paraaortic adenopathy. ABDOMINAL WALL: Anterior abdominal wall fat containing umbilical hernia. No bowel loops therein. No bowel obstruction. GI: There is no evidence of bowel obstruction, free air, nor abscess. PELVIS: GI: No evidence of appendicitis.No evidence of sigmoid diverticulitis. LYMPH NODES: There is no intrapelvic nor inguinal adenopathy. REPRODUCTIVE: Uterus is again noted be surgically absent. No abnormal adnexal masses. URINARY BLADDER: No calculi nor obvious masses evident. Contains some air which is probably related to recent instrumentation. No calculi in the bladder. No obvious bladder wall mass. OSSEOUS: No significant osseous lesions. Pelvic bones reflect the presence of probable Paget's disease IMPRESSION: 1. Again noted is a large right renal pelvis staghorn calculus and then ipsilateral percutaneous neph rostomy catheter serving the right kidney. However, it was probably not possible to reformed the pig tail within the renal pelvis does of the size of the calculus therein, and the pigtail drainage holes are partially within the kidney and some outside of the kidney. Nevertheless, there does not appear to be an obvious urinoma nor other prominent fluid collection along the course of this drainage cath eter. Position of this catheter should be checked by the interventional department where it was plac ed to determine if it requires repositioning. 2. Opposite-left kidney appears unremarkable. 3. Uterus is surgically absent. No abnormal adnexal masses. No prominent fluid in the pelvis. 4. 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 RADIATION DOSE DELIVERED: 1,264.15mGy.cm Total DLP DATA REPOSITORY: All CT scans at this facility are submitted to the National Radiology Data Registry (NRDR) Dose Index Registry (DIR) with the [employer] (ACR). RADIATION OPTIMIZATION: All CT scans at this facility use at least one of these dose optimization te chniques: automated exposure control; mA and/or kV adjustment per patient size (includes targeted exa ms where dose is matched to clinical indication); or iterative reconstruction.
[2020-10-15] MEDS: Heparin 5,000 UNITS/ML VIAL 5000 UNITS SC ×2 (02:36→10:37)
[2020-10-15] MEDS: Lactated Ringers 1,000 ML 150 ML IV ×2 (04:32→15:59)
[2020-10-15] MEDS: VANCOMYCIN/WATER (PEG) 1.25 GM/250 ML BAG IV (05:26)
[2020-10-15 07:14] LABS: Abs Immature Grans 0.11 10^3/uL (0.0-0.06); Absolute Basophil Count 0.06 10^3/uL (0.0-0.2); Absolute Eosinophil Count 0.24 10^3/uL (0.0-0.7); Absolute Lymphocyte Count 1.42 10^3/uL (1.2-3.4); Absolute Monocyte Count 0.89 10^3/uL (0.1-0.8); Absolute Neutrophil Count 5.38 10^3/uL (1.2-6.7); Basophils % 0.7; HCT 35.8 % (36.0-46.0); HGB 11.8 g/dL (11.2-15.7); Immature Grans % 1.4; Lymphocytes % 17.5; MCH 29.2 pg (27.0-33.0); MCV 88.6 fL (80-95); MPV 10.9 fL (8.0-11.0); Neutrophils % 66.4; Nucleated RBC 0 %; Platelet Count 190 10^3/uL (130-400); RBC 4.04 10^6/uL (3.93-5.22); RDW 12.4 % (11.7-14.6); RDW-SD 40.7 fL
[2020-10-15 07:33] LABS: Anion Gap 12.7 mmol/L (3-11); BUN 7 mg/dL (7-18); C-Reactive Protein 15.76 mg/dL (0.0-0.3); CO2 17.3 mmol/L (21.0-32.0); CREATININE 0.8 mg/dL (0.55-1.02); Calcium 8.3 mg/dL (8.5-10.1); Chloride 109 mmol/L (98-107); Glucose 118 mg/dL (74-106); Magnesium 1.9 mg/dL (1.8-2.4); Potassium 3.3 mmol/L (3.5-5.1); Sodium 139 mmol/L (136-145)
[2020-10-15] MEDS: Ketorolac 15 MG/ML VIAL 30 MG IVP ×2 (09:04→16:05)
[2020-10-15] MEDS: acetaZOLAMIDE 250 MG TAB 500 MG PO ×2 (09:07→20:44)
[2020-10-15] MEDS: Famotidine 20 MG TAB PO ×2 (09:07→20:44)
[2020-10-15] MEDS: Aspirin E.C. 81 MG TABEC PO (09:08)
[2020-10-15] MEDS: POTASSIUM CHLORIDE 20 MEQ/100 ML BAG 50 MEQ IVPB ×2 (10:37→14:09)
--- NOTE | 2020-10-15 11:15 | DI.CT_ITS ---
Exam(s) CT ABDOMEN PELVIS WO EXAM: CT ABDOMEN PELVIS WO CLINICAL HISTORY: evaluate placement of nephrostomy tube. TECHNIQUE: Imaging Protocol: Axial computed tomography images with coronal and sagittal reformatted images were created and reviewed CONTRAST MATERIAL: Intravenous: none Oral: None COMPARISON: No exams were available for comparison FINDINGS: VISUALIZED LUNG BASES: Pleural based density infiltrate in the posterior basal segment left lower lob e. No pleural effusions. ABDOMEN: There is no ascites. LIVER: There are no obvious focal hepatic lesions evident of this noninfused study. GALLBLADDER/BILIARY: No obvious gallbladder pathology. CBD is not dilated. PANCREAS: No evidence of pancreatic mass nor dilatation of the pancreatic duct. SPLEEN: Spleen is not enlarged. No obvious intrasplenic lesions. ADRENALS: There are no significant adrenal masses. KIDNEYS:Left kidney is unremarkable. In the right kidney there is again noted a large calculus in th e renal pelvis measuring approximately 2.9 cm by 1.2 cm by 3 cm. This has the appearance of a stagho rn calculus. There has been interval placement of a right nephrostomy tube. The pigtail of this nep hrostomy tube is not formed the but is instead splayed SP LAY ED out with its distal tip located 5 mi llimeters lateral to the calculus. Most of the drainage catheter holes appear to be in the kidney co rtex.. There is no perinephric collection. There is presently no gas around the calculus, as was ev ident on the prior 10/12/2020 study. The ipsilateral ureter is not dilated. There are no calculi in the nondilated ureter nor in the urinary bladder. Some air is seen in the urinary bladder which is either related to recent instrumentation or down from above. ABDOMINAL AORTA: Abdominal aorta is not enlarged. LYMPH NODES: There is no retroperitoneal nor paraaortic adenopathy. ABDOMINAL WALL: Is a fat containing anterior abdominal wall umbilical hernia. GI: There is no evidence of bowel obstruction, free air, nor abscess. PELVIS: LYMPH NODES: There is no intrapelvic nor inguinal adenopathy. GI: No evidence of appendicitis.No evidence of sigmoid diverticulitis. URINARY BLADDER: No calculi nor obvious masses evident REPRODUCTIVE: Uterus is surgically absent. No abnormal adnexal masses evident but there is a small a mount of free fluid in the dependent aspect of the pelvis. OSSEOUS: No lytic osseous lesions identified IMPRESSION: 1. Compared to 10/12/2020 there has been interval placement of a right nephrostomy tube which enters between the 11th and 12th ribs and has its pigtail splayed out to within a distance of 5 millimeters from the large right renal pelvis staghorn calculus. The final catheter whole is close to the cortic al surface of the kidney but there does not appear to be abnormal fluid around the kidney/urinoma. T here is difficult to determine if the position of this catheter is adequate for continuous decompress ion. No other calculi seen. The opposite-left kidney is unremarkable. No calculi seen in the urina ry bladder. 2. Pleural based infiltrate noted in the left lung base-posterior basal segment. No overlying rib de struction. 3. RADIATION DOSE DELIVERED: 1,078.52mGy.cm Total DLP DATA REPOSITORY: All CT scans at this facility are submitted to the National Radiology Data Registry (NRDR) Dose Index Registry (DIR) with the [employer] (ACR). RADIATION OPTIMIZATION: All CT scans at this facility use at least one of these dose optimization te chniques: automated exposure control; mA and/or kV adjustment per patient size (includes targeted exa ms where dose is matched to clinical indication); or iterative reconstruction.
--- NOTE | 2020-10-15 12:01 | W.PM.PROGNOT ---
Date of Service Date of service: 10/15/20 Time of Service: 12:01 Assessment and Plan Assessment and plan (1) E. coli sepsis: Status: Acute Assessment and plan: Due to pyelonephritis (emphysematous) with bacteremia, present on admission, associated with an obstructing staghorn calculus. S/p Nephrostomy tube at [facility] on 10/12/20. Repeat blood cultures negative to date. Urine culture and blood culture from admission growing E. coli sensitive to Rocephin. Vancomycin to be fl'ed today. Per Dr. Orellana's conversation w/ Dr Kwok: the patient is going to need percutaneous nephrolithotomy and will need an extended course of oral antibiotics once she is better. She would be discharged home with a nephrostomy tube when ready. Continue aggressive IVF. Case discussed twice today w/ Dr. Moscoso (first this morning around 930 am and again this afternoon at 4 pm. I have been back to evaluate the patient 3 times and a 4th time today to update her on Dr. Moscoso's recommendations. Qualifiers: Sepsis acute organ dysfunction status: without acute organ dysfunction Qualified Code(s): A41.51 - Sepsis due to Escherichia coli [E. coli] (2) Pyelonephritis, acute: Status: Acute Assessment and plan: As above (3) Renal calculus, right: Status: Acute Assessment and plan: As above. Per my discussion w/ Dr. Moscoso, the repeat CT scan of the abomen and pelvis shows decompression of the kidney and the nephrostomy tube is in the renal collection system. He indicated that because the kidney is now decompressed, there is no need for urgent replacement of the nephrostomy tube but a tube check by I.R. should be done but not needed today. He suggests repeating her CT scan w/ contrast enhancement to rule out a renal abscess in light of her continued fevers and then we can discuss having I.R. perform tube check in if necessary drainage tube for abscess if one is present. (4) Hydronephrosis: Status: Acute Assessment and plan: R-sided, improved as noted above. Qualifiers: Hydronephrosis type: with renal calculous obstruction Qualified Code(s): N13.2 - Hydronephrosis with renal and ureteral calculous obstruction (5) Appendicitis: Status: Ruled-out Assessment and plan: Evaluated by general surgery who do not feel that the findings on CT are supported clinically. No evidence of appendicitis either on clinical exam nor on repeat CT scan from today. Qualifiers: Appendicitis type: acute appendicitis Acute appendicitis type: other Qualified Code(s): K35.890 - Other acute appendicitis without perforation or gangrene (6) Hypokalemia: Status: Acute Assessment and plan: replete w/ iv fluids and add potassium to her maintenance iv fluids. (7) Hypomagnesemia: Status: Acute Assessment and plan: repleted. level 1.9 today (8) DVT prophylaxis: Status: Acute Assessment and plan: Sc heparin change to enoxaparin (9) Discharge planning issues: Status: Acute Assessment and plan: Full code Continues to require hospitalization Subjective Subjective Interval history since last seen: Patient still feels weak, nauseated and w/ right flank pain but no abdominal pain or vomiting. She is still having intermittent fevers (38.1 last night at midnight). WBC remain normal at 8100. H&H stable at 11.8 gm and 35.8%, BUN creatinine remain normal at 7 and 0.8. K+ is still low at 3.3 despite getting iv replacments yesterday. I have ordered additional iv replacement. U.O. remains adequate w/ 1875 mL from midnight last night to 8 am today. Right nephrostomy tube however has ceased to drain. Initially it was draining yesterday and during the night all that they had in the urosotomy bag is a bloody clot. Night nursing attempted to flush and withdraw w/ syring from the nephrostomy tube but could not get anything back from the tube although it would flush. The day nurse had not flushed it yet. I spoke w/ urologist, Dr. Moscoso, who asked that I personally flush and aspirate back on the nephrostomy tube w/ at least 10 mL and then allow the tube to drain for at least an hour to determine whether or not it is funcitonal. I flushed w/ total of 20 mL sterile saline and attempted to withdraw the fluid but could not get anything back and met resistance while pulling back on the syringe. After an hour and half I re-evaluated her and confirmed w/ her nurse that there was no return from the nephrostomy tube. I performed bedside POCUS and it appeared that the nephrostomy tube was in place however, I obtained a CT scan of her abdomen and pelvis w/o contrast and it confirmed that the nephrostomy tube terminates in the right collecting system, posterior and lateral to the staghorn calculus. I have asked radiology to forward the results to [facility] for Dr. Manzano to review and I called [facility] transfer center to request that he call me back. Exam Const General: cooperative and ill appearing Nutritional Appearance: obese Orientation: alert, awake and oriented x3 Resp Effort & Inspection: normal respiratory effort and able to speak in complete sentences Auscultation: clear to auscultation bilaterally Cardio Jugular venous pressure: no JVD Palpation: normal PMI Rate: regular rate Rhythm: regular rhythm Heart Sounds: S1 normal, S2 normal and normal, physiologic split S2 Pulses: normal peripheral pulses GI Inspection: normal to inspection Palpation: soft and no hepatosplenomegaly Percussion: normal to percussion Auscultation: normal bowel sounds General: CVA tenderness on the right Other: right nephrostomy tube located in right posterior upper back infrascapular region w/ tube seen to be entered through the skin and intact; tube has no urine in the tube, there is small amount of bloody fluid in the tube and the collection bag has clotted blood. After sterilizing the surface of the nephrostomy tube cap distal to the stop cock, I injected two 10 mL sterile synges full of saline and attempted to withdraw the fluid but got resistance and no driainage. After 1 1/2 hr there was no drainage from the nephrostomy tube. Objective Last Vital Signs Temp 38.3 C H 10/15/20 09:25 Pulse 65 10/15/20 07:28 Resp 16 10/15/20 07:28 BP 150/84 H 10/15/20 07:28 Pulse Ox 99 10/15/20 07:28 Laboratory Results - last 24 hr 10/14/20 10/15/20 10/15/20 15:57 06:30 06:30 WBC 8.10 RBC 4.04 Hgb 11.8 Hct 35.8 L MCV 88.6 MCH 29.2 MCHC 33.0 RDW 12.4 Plt Count 190 MPV 10.9 Immature Gran % 1.4 Neutrophils % 66.4 Lymphocytes % 17.5 Monocytes % 11.0 Eosinophils % 3.0 Basophils % 0.7 Nucleated RBC % 0 Absolute Neutrophils 5.38 Absolute Lymphocytes 1.42 Absolute Monocytes 0.89 H Absolute Eosinophils 0.24 Absolute Basophils 0.06 Sodium 139 Potassium 3.3 L Chloride 109 H Carbon Dioxide 17.3 L Anion Gap 12.7 H BUN 7 Creatinine 0.8 Estimated GFR/1.73 m2 >= 60.00 Glucose 118 H Calcium 8.3 L Magnesium 1.9 C-Reactive Protein 15.76 H Vancomycin Trough 21.5 H*
--- NOTE | 2020-10-15 12:14 | DI.VRAD_ITS ---
PROCEDURE INFORMATION: Exam: CT Abdomen And Pelvis Without Contrast Exam date and time: 10/15/2020 11:28 AM Age: 59 years old Clinical indication: Other: Evaluate position of nephrostomy tube; Prior surgery; Surgery date: Post-operative (0-2 days); Surgery type: Right nephrostomy tube placement TECHNIQUE: Imaging protocol: Computed tomography of the abdomen and pelvis without contrast. Radiation optimization: All CT scans at this facility use at least one of these dose optimization techniques: automated exposure control; mA and/or kV adjustment per patient size (includes targeted exams where dose is matched to clinical indication); or iterative reconstruction. COMPARISON: CT RENAL COLIC WO 10/12/2020 3:28 AM FINDINGS: Lungs: Bibasilar atelectasis Mediastinal space: Small hiatal hernia Liver: Hepatomegaly 19 cm Gallbladder and bile ducts: There may be gallstone in the gallbladder.. Pancreas: Normal. No ductal dilation. Spleen: Normal. No splenomegaly. Adrenal glands: Normal. No mass. Kidneys and ureters: Nephrostomy tube terminates posterior and lateral to the staghorn calculus in the right collecting system.. Bubble of air in the right collecting system may be secondary to infection or nephrostomy tube. Right Staghorn calculus measures 2.8 by 1.2 by 2.3 cm.. Stomach and bowel: Unremarkable. No obstruction. No mucosal thickening. Appendix: Normal appendix Intraperitoneal space: Mild amount of free fluid in the pelvis Vasculature: Unremarkable. No abdominal aortic aneurysm. Lymph nodes: Unremarkable. No enlarged lymph nodes. Urinary bladder: There is air within the bladder. This may reflect instrumentation or infection. Reproductive: Unremarkable as visualized. Bones/joints: Unremarkable. No acute fracture. Soft tissues: Umbilical hernia contains fat IMPRESSION: 1. Nephrostomy tube terminates posterior and lateral to the staghorn calculus in the right collecting system.. 2. Right Staghorn calculus measures 2.8 by 1.2 by 2.3 cm.. 3. Bubble of air in the right collecting system may be secondary to infection or nephrostomy tube. 4. There may be gallstone in the gallbladder.. Dictated and Authenticated by: Nay Cabello MD. Ordering:[facility] Brandy Crisostomo MD
[2020-10-15] MEDS: hydrOXYzine HCL 25 MG TAB PO (14:21)
[2020-10-15] MEDS: ACETAMINOPHEN 1,000 MG/100 ML BTL 400 MG IVPB (16:05)
[2020-10-15] MEDS: cefTRIAXone 2 GM/50 ML BAG IVPB (16:05)
[2020-10-15] MEDS: POTASSIUM CHLORIDE/0.9% NACL 1,000 ML 125 MEQ IV (16:45)
[2020-10-15 17:11] LABS: Potassium 3.6 mmol/L (3.5-5.1)
[2020-10-15] MEDS: Enoxaparin 40 MG/0.4 ML SYR SC (17:15)
[2020-10-15] MEDS: Normal Saline Flush 10 ML SYR IVP (20:44)
[2020-10-15] MEDS: Zolpidem 5 MG TAB PO (21:14)
[2020-10-15] MEDS: Omnipaque 350 MG/ML 100 ML BTL IJ (22:27)
[2020-10-15] MEDS: Normal Saline - Diluent 50 ML VIAL IV (22:28)
--- NOTE | 2020-10-15 23:23 | DI.VRAD_ITS ---
PROCEDURE INFORMATION: Exam: CT Abdomen And Pelvis With Contrast Exam date and time: 10/15/2020 4:03 PM Age: 59 years old Clinical indication: Condition or disease; Kidney or ureter condition; Other: Pyelonephritis; Prior surgery; Surgery type: R stent TECHNIQUE: Imaging protocol: Computed tomography of the abdomen and pelvis with contrast. COMPARISON: CT ABDOMEN PELVIS WO 10/15/2020 11:59 AM FINDINGS: Liver: Normal. No mass. Gallbladder and bile ducts: Normal. No calcified stones. No ductal dilation. Pancreas: Normal. No ductal dilation. Spleen: Normal. No splenomegaly. 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 A renal pelvic calculus on the right measures up to 2.7 by 0.9 cm. Slightly heterogeneous right-sided nephrogram may reflect associated right-sided pyelonephritis Stomach and bowel: Unremarkable. No obstruction. No mucosal thickening. Appendix: No evidence of appendicitis. Intraperitoneal space: Unremarkable. No free air. No significant fluid collection. Vasculature: Unremarkable. No abdominal aortic aneurysm. Lymph nodes: Unremarkable. No enlarged lymph nodes. Urinary bladder: Trace gas in the urinary bladder may reflect recent presence of a Bautista catheter. There is no evidence for urinary bladder wall thickening to suggest cystitis. Reproductive: Unremarkable as visualized. 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 IMPRESSION: Percutaneous nephrostomy catheter noted on the right with mild hydronephrosis. A renal pelvic calculus on the right measures up to 2.7 by 0.9 cm. Slightly heterogeneous right-sided nephrogram may reflect associated right-sided pyelonephritis Dictated and Authenticated by: Bryan Thakkar MD. Ordering:[facility] Brandy Crisostomo MD
[2020-10-16] VITALS (20 sets, daily range): BP systolic 92–139; BP diastolic 39–79; PULSE 66–97; RESP 16–28; TEMP 36.5–39.1; O2SAT 93–100
[2020-10-16] MEDS: ACETAMINOPHEN 1,000 MG/100 ML BTL 400 MG IVPB (00:45)
[2020-10-16] MEDS: VANCOMYCIN/WATER (PEG) 1.25 GM/250 ML BAG IV (01:51)
[2020-10-16] MEDS: Ketorolac 15 MG/ML VIAL 30 MG IVP ×3 (03:57→19:41)
[2020-10-16] MEDS: Normal Saline Flush 10 ML SYR IVP ×4 (03:58→22:19)
[2020-10-16] MEDS: POTASSIUM CHLORIDE/0.9% NACL 1,000 ML 125 MEQ IV ×2 (05:16→23:26)
[2020-10-16 07:51] LABS: Abs Immature Grans 0.16 10^3/uL (0.0-0.06); Absolute Basophil Count 0.06 10^3/uL (0.0-0.2); Absolute Eosinophil Count 0.15 10^3/uL (0.0-0.7); Absolute Lymphocyte Count 1.31 10^3/uL (1.2-3.4); Absolute Monocyte Count 0.74 10^3/uL (0.1-0.8); Absolute Neutrophil Count 5.98 10^3/uL (1.2-6.7); Basophils % 0.7; Eosinophils % 1.8; HGB 11.8 g/dL (11.2-15.7); Immature Grans % 1.9; Lymphocytes % 15.6; MCH 29.1 pg (27.0-33.0); MCHC 32.8 % (32.0-36.0); MCV 88.9 fL (80-95); MPV 10.3 fL (8.0-11.0); Monocytes % 8.8; Neutrophils % 71.2; Nucleated RBC 0 %; Platelet Count 199 10^3/uL (130-400); RBC 4.05 10^6/uL (3.93-5.22); RDW 12.5 % (11.7-14.6)
[2020-10-16 08:04] LABS: ALT 21 U/L (14-59); AST 15 U/L (15-37); Albumin 2.7 g/dL (3.4-5.0); Alkaline Phosphatase 113 U/L (46-116); Anion Gap 15.4 mmol/L (3-11); BUN 11 mg/dL (7-18); Bilirubin, Total 0.5 mg/dL (0.2-1.0); CO2 14.6 mmol/L (21.0-32.0); CREATININE 0.8 mg/dL (0.55-1.02); Calcium 8.4 mg/dL (8.5-10.1); Chloride 109 mmol/L (98-107); Glucose 123 mg/dL (74-106); Magnesium 1.8 mg/dL (1.8-2.4); Sodium 139 mmol/L (136-145)
[2020-10-16 08:08] LABS: Potassium 2.9 mmol/L (3.5-5.1)
[2020-10-16] MEDS: Famotidine 20 MG TAB PO ×2 (08:32→19:44)
[2020-10-16] MEDS: acetaZOLAMIDE 250 MG TAB 500 MG PO ×2 (08:33→19:42)
[2020-10-16] MEDS: Enoxaparin 40 MG/0.4 ML SYR SC (08:34)
[2020-10-16] MEDS: Aspirin E.C. 81 MG TABEC PO (08:34)
--- NOTE | 2020-10-16 10:35 | PGE_ITS ---
Date of Service Date of service: 10/16/20 Time of Service: 10:35 Assessment and Plan Assessment and plan (1) E. coli sepsis: Status: Acute Assessment and plan: E. coli sepsis secondary to emphysematous pyelonephritis now status post right nephrostomy tube placement October 12, 2020. Nephrostomy tube continue showing no drainage. Repeat CT scan of the abdomen pelvis with IV contrast showed no abscess but did show proper placement of the nephrostomy tube. She has some residual hydronephrosis but improved since admission and prior to nephrostomy tube placement. Currently await return call from urology from [facility] regarding management with interventional radiology consultation for tube functional check. Urine culture from October 12, 2020 grew E. coli which was resistant to quinolones Bactrim and ampicillin but remain sensitive to cephalosporins and Carbapenem's. Patient is on high-dose ceftriaxone 2 g daily. Given that this is a complicated UTI with staghorn calculus and concern that she may be developing ESBL resistance. I will order repeat urine culture because she continues to have fevers on a daily basis and I will change to meropenem. Further management pending my discussion with . Qualifiers: Sepsis acute organ dysfunction status: without acute organ dysfunction Qualified Code(s): A41.51 - Sepsis due to Escherichia coli [E. coli] (2) Pyelonephritis, acute: Status: Acute Assessment and plan: As above (3) Renal calculus, right: Status: Acute Assessment and plan: As above. (4) Hydronephrosis: Status: Acute Assessment and plan: R-sided, improved as noted above. Qualifiers: Hydronephrosis type: with renal calculous obstruction Qualified Code(s): N13.2 - Hydronephrosis with renal and ureteral calculous obstruction (5) Renal tubular acidosis: Status: Suspected Assessment and plan: Check urine electrolytes including spot urine sodium, urine chloride, urine potassium. Check VBG. Begin patient on sodium bicarbonate oral replacement 1300 mg p.o. 3 times daily. Repeat her urine for urinalysis check NPH in the morning. (6) Hypokalemia: Status: Acute Assessment and plan: Replete with both IV and oral potassium supplementation. (7) DVT prophylaxis: Status: Acute Assessment and plan: Sc heparin change to enoxaparin (8) Discharge planning issues: Status: Acute Assessment and plan: Full code Continues to require hospitalization Subjective Subjective Patient reports: feels better Interval history since last seen: R. flank pain has improved. No nausea or vomiting or abdominal pain. She would like her diet increased from clear liquids. I am awaiting review of her case and contrast CT scan from last night w/ the urologist senior electrical controls engineer at [facility] [place] [place] (Dr. Mcdonnell; yesterday was Dr. Moscoso). Patient currently afebrile although she was still spiking fevers last night and early this a.m. w/ T max of 39.1. WBC remain normal at 8400. She has a continued metabolic acidosis w/ AG 15.4, lactate is pending. Potassium is low at 2.9 despite iv replacement yesterday. I suspect that she has distal RTA from her pyelonephritis/nephrolithiasis. I will put her on bicarbonate therapy along w/ potassium replacement. Will check 24 hr urine for citrate excretion and get spot urine electrolytes and VBG to confirme her diagnosis of RTA. I have left a message w/ [facility] [place] [place] for Dr. Mcdonnell to call me to discuss further intervention on her nephrolithiasis and renal obstruction, i.e. having IR perform tube check on her nephrostomy tube. Exam Narrative Exam Narrative: Middle-aged white female sitting up in her chair in no acute distress. She is alert and oriented person place time circumstance. Lungs are clear to auscultation Heart regular rate and rhythm Abdomen soft nondistended normal active bowel sounds nontender Right flank has a nephrostomy tube in place and is nontender to palpation. Lower extremities without peripheral cyanosis or edema. Objective Last Vital Signs Temp 37.4 C 10/16/20 08:05 Pulse 82 10/16/20 08:05 Resp 19 10/16/20 08:05 BP 122/68 10/16/20 08:05 Pulse Ox 99 10/16/20 08:05 Laboratory Results - last 24 hr 10/15/20 10/16/20 10/16/20 16:55 06:36 06:36 WBC 8.40 RBC 4.05 Hgb 11.8 Hct 36.0 MCV 88.9 MCH 29.1 MCHC 32.8 RDW 12.5 Plt Count 199 MPV 10.3 Immature Gran % 1.9 Neutrophils % 71.2 Lymphocytes % 15.6 Monocytes % 8.8 Eosinophils % 1.8 Basophils % 0.7 Nucleated RBC % 0 Absolute Neutrophils 5.98 Absolute Lymphocytes 1.31 Absolute Monocytes 0.74 Absolute Eosinophils 0.15 Absolute Basophils 0.06 Sodium 139 Potassium 3.6 2.9 L Chloride 109 H Carbon Dioxide 14.6 L Anion Gap 15.4 H BUN 11 Creatinine 0.8 Estimated GFR/1.73 m2 >= 60.00 Glucose 123 H Calcium 8.4 L Magnesium 1.8 Total Bilirubin 0.5 AST 15 ALT 21 Alkaline Phosphatase 113 Total Protein 7.0 Albumin 2.7 L
[2020-10-16] MEDS: MAGNESIUM SULFATE 1 GM/100 ML BAG IVPB (10:45)
[2020-10-16 11:19] LABS: BE (Venous) -10 mmol/L (-2-3); HCO3 (Venous) 16 mmol/L (23-28); O2 Sat (Venous) 53 %; TCO2 (Venous) 15 mmol/L (24-29); pCO2 (Venous) 33 mmHg (41-51); pO2 (Venous) 25 mmHg
[2020-10-16 11:22] LABS: Lactate 1.6 mmol/L (0.6-1.4)
[2020-10-16 11:35] LABS: Vancomycin, Trough 16.6 ug/mL (10.0-20.0)
[2020-10-16] MEDS: Acetaminophen 325 MG TAB PO ×2 (11:37→19:42)
[2020-10-16] MEDS: POTASSIUM CHLORIDE 20 MEQ/100 ML BAG 50 MEQ IVPB ×2 (12:07→16:05)
[2020-10-16] MEDS: LORazepam 0.5 MG TAB PO ×2 (13:17→19:26)
[2020-10-16] MEDS: Potassium Bicarbonate/Cit AC 25 MEQ TABLET.EFF PO ×3 (13:45→19:40)
[2020-10-16] MEDS: Sodium Bicarbonate 650 MG TAB 1300 MG PO ×2 (13:45→19:41)
[2020-10-16] MEDS: MEROPENEM 1 GM in Normal Saline 100 ML IVPB ×2 (14:47→22:18)
[2020-10-16 16:51] LABS: Bilirubin Negative (Negative); Blood Large (Negative); Clarity Sl Cloudy (Clear); Glucose Negative (Negative); Ketones Trace mg/dL (Negative); Leukocyte Esterase Small (Negative); Nitrite Negative (Negative); POTASSIUM,URINE RANDOM 27 mmol/L; Sodium, Urine 52 mmol/L; Urobilinogen 0.2 EU/dL (Up TO 0.2); pH 6.5 (5-8)
[2020-10-16 17:02] LABS: Bacteria Many HPF (Negative); Casts Negative LPF (Negative); Crystals Negative HPF (Negative); Epithelial Cells Few HPF (Negative); Mucus Negative (Negative); RBC 20-50 HPF (0-2)
[2020-10-16 17:03] LABS: C & S Indicated? C&S Done As Ordered
[2020-10-16] MEDS: hydrOXYzine HCL 25 MG TAB PO (19:26)
[2020-10-16] MEDS: Loperamide 2 MG CAP PO (19:42)
[2020-10-16] MEDS: Methylphenidate 10 MG TAB 20 MG PO (19:43)
[2020-10-16 20:12] LABS: Potassium 4.5 mmol/L (3.5-5.1)
[2020-10-16] MEDS: Zolpidem 5 MG TAB PO (22:19)
[2020-10-17] VITALS (9 sets, daily range): BP systolic 120–152; BP diastolic 70–82; PULSE 70–79; RESP 16–18; TEMP 36.3–38.6; O2SAT 97–100
[2020-10-17] MEDS: MEROPENEM 1 GM in Normal Saline 100 ML IVPB ×3 (05:40→21:44)
[2020-10-17] MEDS: Normal Saline Flush 10 ML SYR IVP ×5 (05:41→17:27)
[2020-10-17] MEDS: Ketorolac 15 MG/ML VIAL 30 MG IVP ×2 (06:23→17:26)
[2020-10-17] MEDS: hydrOXYzine HCL 25 MG TAB PO ×2 (06:25→10:05)
[2020-10-17] MEDS: Acetaminophen 325 MG TAB PO ×2 (06:27→17:27)
[2020-10-17 07:21] LABS: Abs Immature Grans 0.23 10^3/uL (0.0-0.06); Absolute Basophil Count 0.06 10^3/uL (0.0-0.2); Absolute Eosinophil Count 0.18 10^3/uL (0.0-0.7); Absolute Lymphocyte Count 1.68 10^3/uL (1.2-3.4); Absolute Monocyte Count 1.18 10^3/uL (0.1-0.8); Absolute Neutrophil Count 6.35 10^3/uL (1.2-6.7); Basophils % 0.6; Eosinophils % 1.9; HGB 10.6 g/dL (11.2-15.7); Immature Grans % 2.4; Lymphocytes % 17.4; MCH 29.5 pg (27.0-33.0); MCHC 33.1 % (32.0-36.0); MCV 89.1 fL (80-95); MPV 9.8 fL (8.0-11.0); Monocytes % 12.2; Neutrophils % 65.5; Nucleated RBC 0 %; Platelet Count 187 10^3/uL (130-400); RBC 3.59 10^6/uL (3.93-5.22); RDW 12.8 % (11.7-14.6); RDW-SD 42.3 fL; WBC 9.68 10^3/uL (4.4-10.8)
[2020-10-17 07:34] LABS: BUN 12 mg/dL (7-18); CREATININE 0.8 mg/dL (0.55-1.02); Calcium 7.7 mg/dL (8.5-10.1); Chloride 111 mmol/L (98-107); Glucose 88 mg/dL (74-106); Potassium 3.7 mmol/L (3.5-5.1); Sodium 141 mmol/L (136-145)
[2020-10-17] MEDS: Enoxaparin 40 MG/0.4 ML SYR SC (07:51)
[2020-10-17] MEDS: acetaZOLAMIDE 250 MG TAB 500 MG PO (07:52)
[2020-10-17] MEDS: Sodium Bicarbonate 650 MG TAB 1300 MG PO ×3 (07:52→19:50)
[2020-10-17] MEDS: Potassium Bicarbonate/Cit AC 25 MEQ TABLET.EFF PO ×3 (07:52→19:51)
[2020-10-17] MEDS: Famotidine 20 MG TAB PO ×2 (07:53→19:50)
[2020-10-17] MEDS: Aspirin E.C. 81 MG TABEC PO (07:53)
[2020-10-17 08:02] LABS: Procalcitonin 7.2 ng/mL
--- NOTE | 2020-10-17 08:05 | NUR.NOTE ---
Gave nursing report to Teofilo Martinez RN in the Interventional Radiogy Dept. at [facility]. Nursing Note:
[2020-10-17] MEDS: POTASSIUM CHLORIDE/0.9% NACL 1,000 ML 125 MEQ IV ×2 (09:28→21:46)
[2020-10-17 09:56] LABS: Bilirubin Negative (Negative); Blood Large (Negative); Clarity Sl Cloudy (Clear); Glucose Negative (Negative); Ketones 80 mg/dL (Negative); Leukocyte Esterase Trace (Negative); Nitrite Negative (Negative); Specific Gravity >= 1.030 (1.005-1.025); Urobilinogen 0.2 EU/dL (Up TO 0.2)
[2020-10-17 10:06] LABS: Bacteria Many HPF (Negative); C & S Indicated? Yes; Casts Negative LPF (Negative); Crystals Negative HPF (Negative); Epithelial Cells Rare HPF (Negative); Mucus Heavy (Negative); RBC >50 HPF (0-2)
--- NOTE | 2020-10-17 15:59 | W.PM.PROGNOT ---
Date of Service Date of service: 10/17/20 Time of Service: 15:59 Assessment and Plan Assessment and plan (1) E. coli sepsis: Status: Acute Assessment and plan: sepsis has resolved and her repeat blood cultures and repeat urine cultures have been negative. she still has fevers probably d/t to residual infection from her staghorn calculus. she is now on meropenem. if she continues to run fevers, then I think she should be transferred to a tertiary care facility who can treat her nephrolithiasis. I have had no satisfaction from my dealings w/ [facility] [place] urology, they have deferred to IR intervention. I will call [facility] if her fevers do not resolve w/ the new functional nephrostomy tube and the broader antibiotics. We have no urology coverage at [facility] for this week as Dr. Kwok is away. Qualifiers: Sepsis acute organ dysfunction status: without acute organ dysfunction Qualified Code(s): A41.51 - Sepsis due to Escherichia coli [E. coli] (2) Pyelonephritis, acute: Status: Acute Assessment and plan: As above (3) Renal calculus, right: Status: Acute Assessment and plan: As above. (4) Hydronephrosis: Status: Acute Assessment and plan: s/p replacement of her nephrostomy tube Qualifiers: Hydronephrosis type: with renal calculous obstruction Qualified Code(s): N13.2 - Hydronephrosis with renal and ureteral calculous obstruction (5) Renal tubular acidosis: Status: Suspected Assessment and plan: acidosis is improving. HCO3 is up to 19 from 14 yesterday and anion gap is normal now. Urine electrolytes were done but are pending (sodium and potassium levels back but urine chlorides are pending but needed to evaluate her urine anion gap). continue oral sodium bicarbonate therapy (6) Hypokalemia: Status: Acute Assessment and plan: improved w/ oral and iv replacement. continue oral replacemtn (7) DVT prophylaxis: Status: Acute Assessment and plan: Sc heparin change to enoxaparin (8) Discharge planning issues: Status: Acute Assessment and plan: Full code Continues to require hospitalization w/ parenteral antibiotics. Subjective Subjective Interval history since last seen: Patient went to [facility] [facility] [place] this a.m. for right nephrostomy tube check and possible tube exchange d/t nonfunctioning nephrostomy tube. I assume that this was guidewired over to new tube however, [facility] [place] [facility] [place] IR service did not send any information back w/ her however, her nephrostomy tube is now functioning, draining blood tinged urine. Her lee is also draining bloody urine. Patient denies any abdominal pain, nausea or vomiting. She does have a headache. patient continues to have fevers of 38.2. She is now on meropenem to cover for possible ESBL. Original blood and urine cultures from 10/12 grew E. coli resistant to ampicillin, ampicillin/sulbactam and quinolones. She was on Ceftriaxone but in light of her continued fevers and concerns for development of ESBL resistance d/t her staghorn calculus E. coli infection, I switched her to meropenem yesterday. Exam Narrative Exam Narrative: Obese, white female who is alert and oriented; she appears ill and uncomfortable Lungs clear Heart RRR Abdomen: soft, nondistended, normal bowel sounds, no guarding or tenderness Right flank w/ nephrostomy tube and drainage bag w/ serosanguinous appearing urine; lee catheter w/ bloody urine Neuro/psych: appropriate responses, no focal deficits Objective Last Vital Signs Temp 38.2 C H 10/17/20 15:10 Pulse 79 10/17/20 15:10 Resp 18 10/17/20 15:10 BP 152/82 H 10/17/20 15:10 Pulse Ox 100 10/17/20 15:10 Laboratory Results - last 24 hr 10/16/20 10/16/20 10/16/20 16:25 16:25 19:38 WBC RBC Hgb Hct MCV MCH MCHC RDW Plt Count MPV Immature Gran % Neutrophils % Lymphocytes % Monocytes % Eosinophils % Basophils % Nucleated RBC % Absolute Neutrophils Absolute Lymphocytes Absolute Monocytes Absolute Eosinophils Absolute Basophils Sodium Potassium 4.5 D Chloride Carbon Dioxide Anion Gap BUN Creatinine Estimated GFR/1.73 m2 Glucose Calcium Magnesium C-Reactive Protein Procalcitonin Urine Color Yellow Urine Clarity Sl Cloudy Urine pH 6.5 Ur Specific [place] 1.010 Urine Protein Trace H Urine Ketones Trace H Urine Blood Large H Urine Nitrite Negative Urine Bilirubin Negative Urine Urobilinogen 0.2 Ur Leukocyte Esterase Small H Urine RBC 20-50 H Urine WBC 10-20 H Ur Epithelial Cells Few Urine Crystals Negative Urine Bacteria Many Urine Casts Negative Urine Mucus Negative Ur Culture Indicated? C&S Done As Ordered Ur Random Sodium 52 Ur Random Potassium 27 Urine Glucose Negative 10/17/20 10/17/20 10/17/20 06:10 06:10 06:10 WBC RBC Hgb Hct MCV MCH MCHC RDW Plt Count MPV Immature Gran % Neutrophils % Lymphocytes % Monocytes % Eosinophils % Basophils % Nucleated RBC % Absolute Neutrophils Absolute Lymphocytes Absolute Monocytes Absolute Eosinophils Absolute Basophils Sodium 141 Potassium 3.7 Chloride 111 H Carbon Dioxide 19.0 L Anion Gap 11.0 BUN 12 Creatinine 0.8 Estimated GFR/1.73 m2 >= 60.00 Glucose 88 Calcium 7.7 L Magnesium 2.0 C-Reactive Protein 13.60 H Procalcitonin 7.2 Urine Color Urine Clarity Urine pH Ur Specific [place] Urine Protein Urine Ketones Urine Blood Urine Nitrite Urine Bilirubin Urine Urobilinogen Ur Leukocyte Esterase Urine RBC Urine WBC Ur Epithelial Cells Urine Crystals Urine Bacteria Urine Casts Urine Mucus Ur Culture Indicated? Ur Random Sodium Ur Random Potassium Urine Glucose 10/17/20 10/17/20 06:10 07:50 WBC 9.68 RBC 3.59 L Hgb 10.6 L Hct 32.0 L MCV 89.1 MCH 29.5 MCHC 33.1 RDW 12.8 Plt Count 187 MPV 9.8 Immature Gran % 2.4 Neutrophils % 65.5 Lymphocytes % 17.4 Monocytes % 12.2 Eosinophils % 1.9 Basophils % 0.6 Nucleated RBC % 0 Absolute Neutrophils 6.35 Absolute Lymphocytes 1.68 Absolute Monocytes 1.18 H Absolute Eosinophils 0.18 Absolute Basophils 0.06 Sodium Potassium Chloride Carbon Dioxide Anion Gap BUN Creatinine Estimated GFR/1.73 m2 Glucose Calcium Magnesium C-Reactive Protein Procalcitonin Urine Color Yellow Urine Clarity Sl Cloudy Urine pH 6.0 Ur Specific [place] >= 1.030 H Urine Protein 30 H Urine Ketones 80 H Urine Blood Large H Urine Nitrite Negative Urine Bilirubin Negative Urine Urobilinogen 0.2 Ur Leukocyte Esterase Trace H Urine RBC >50 H Urine WBC 3-5 Ur Epithelial Cells Rare Urine Crystals Negative Urine Bacteria Many Urine Casts Negative Urine Mucus Heavy Ur Culture Indicated? Yes Ur Random Sodium Ur Random Potassium Urine Glucose Negative
--- NOTE | 2020-10-17 16:28 | CMPROGNOTE_ITS ---
- If Service Date Differs Date of service: 10/17/20 Time of Service: 16:28 Care Management Progress Note S/O:Jennifer was laying in bed when CM met with her. She had just returned from [facility] [place] [place] where she had a nephrostomy tube check and change, according to Mila. She was very groggy and unable to engage in conversation at this time. She continues to be febrile and shared that the trip to [facility] was uncomfortable. CM to follow. A: Jennifer is a 59 year old woman admitted on 10/12/20 with pyelonephritis P:Anticipate Jennifer will be discharged home with no new services. She will follow up with her community providers and plan of care. CM will continue to support patient and assess for discharge planning needs
[2020-10-17] MEDS: LORazepam 0.5 MG TAB PO (22:57)
[2020-10-17] MEDS: Zolpidem 5 MG TAB PO (22:57)
[2020-10-18] VITALS (9 sets, daily range): BP systolic 112–147; BP diastolic 70–87; PULSE 70–82; RESP 16–20; TEMP 36.9–38.3; O2SAT 96–98
[2020-10-18] MEDS: Acetaminophen 325 MG TAB PO ×2 (03:06→19:49)
[2020-10-18] MEDS: MEROPENEM 1 GM in Normal Saline 100 ML IVPB ×3 (05:32→21:48)
[2020-10-18 06:44] LABS: Abs Immature Grans 0.51 10^3/uL (0.0-0.06); HCT 33.7 % (36.0-46.0); HGB 11.3 g/dL (11.2-15.7); MCH 29.5 pg (27.0-33.0); MCHC 33.5 % (32.0-36.0); MPV 9.7 fL (8.0-11.0); Nucleated RBC 0 %; RBC 3.83 10^6/uL (3.93-5.22); RDW 12.6 % (11.7-14.6); RDW-SD 40.4 fL; WBC 9.82 10^3/uL (4.4-10.8)
[2020-10-18 06:48] LABS: ESR 59 mm/hr (0-30)
[2020-10-18] MEDS: POTASSIUM CHLORIDE/0.9% NACL 1,000 ML 125 MEQ IV ×2 (06:51→14:38)
[2020-10-18 06:56] LABS: Anion Gap 12.1 mmol/L (3-11); BUN 11 mg/dL (7-18); C-Reactive Protein 12.37 mg/dL (0.0-0.3); CO2 19.9 mmol/L (21.0-32.0); CREATININE 0.7 mg/dL (0.55-1.02); Chloride 106 mmol/L (98-107); Glucose 111 mg/dL (74-106); Potassium 3.9 mmol/L (3.5-5.1); Sodium 138 mmol/L (136-145)
[2020-10-18 07:24] LABS: Absolute Eosinophil Count 0.29 10^3/uL (0.0-0.7); Absolute Lymphocyte Count 2.06 10^3/uL (1.2-3.4); Absolute Monocyte Count 0.49 10^3/uL (0.1-0.8); Absolute Neutrophil Count 6.78 10^3/uL (1.2-6.7); Bands % 3; Platelet Count 221 10^3/uL (130-400)
[2020-10-18 07:25] LABS: Diff Comment Manual Differential; Metamyelocytes % 2; Polychromasia Present
[2020-10-18] MEDS: Potassium Bicarbonate/Cit AC 25 MEQ TABLET.EFF PO ×4 (08:13→19:49)
[2020-10-18] MEDS: Enoxaparin 40 MG/0.4 ML SYR SC (08:13)
[2020-10-18] MEDS: Sodium Bicarbonate 650 MG TAB 1300 MG PO ×3 (08:14→19:49)
[2020-10-18] MEDS: Aspirin E.C. 81 MG TABEC PO (08:14)
[2020-10-18] MEDS: Famotidine 20 MG TAB PO ×2 (08:14→19:49)
--- NOTE | 2020-10-18 08:28 | PDOC.CMPRO ---
- If Service Date Differs Date of service: 10/18/20 Time of Service: 08:28 Care Management Progress Note S/O:Jennifer was laying in bed when CM met with her. She verbalized being tired and stated that she wished she could tell me that she feels better. Shonna admitted that she ids getting discouraged. She has been hospitalized almost a week and continues to have pain and fever. She had questions about her nephrostomy tube and the timeline for recovery once the tube is removed. She was advised to pose those questions to the provider when he/she makes rounds again. Shonna also requested to take a shower but the request was denied because of the tube and the fact that there have been ongoing issues with placement. During the conversation with CM, Shonna laughed several times and exhibited a good sense of humor. She again shared that she has a pending job offer at [employer] and would like to be able to begin work as soon as possible. She has concerns about her finances and the fact that she has no income. CM provided her with an [employer] Patient Assistance packet and encouraged her to consider [place] Medicaid as [employer] [facility] does not accept [place] Medicaid. A: Jennifer is a 59 year old woman admitted on 10/12/20 with pyelonephritis P:Anticipate Jennifer will be discharged home with no new services. She will follow up with her community providers and plan of care. CM will continue to support patient and assess for discharge planning needs
--- NOTE | 2020-10-18 16:40 | W.PM.PROGNOT ---
Date of Service Date of service: 10/18/20 Time of Service: 16:40 Assessment and Plan Assessment and plan (1) Pyelonephritis, acute: Status: Acute Assessment and plan: change meropenem to Rocephin 2 gm daily. She needs to complete another 8 days of parenteral antibiotics and then remains on oral suppressive antibiotics until the calculus is removed. She will need the nephrostomy tube left in place until seen [place] [facility] [place] and the stone has been removed. (2) Renal calculus, right: Status: Acute Assessment and plan: awaiting results of 24 hr urine study which will be finished collecting tonight (3) Hydronephrosis: Status: Acute Assessment and plan: s/p replacement of her nephrostomy tube Qualifiers: Hydronephrosis type: with renal calculous obstruction Qualified Code(s): N13.2 - Hydronephrosis with renal and ureteral calculous obstruction (4) Renal tubular acidosis: Status: Suspected Assessment and plan: acidosis is improving. HCO3 is up to 19 and anion gap is normal now. Urine electrolytes were done but are pending (sodium and potassium levels back but urine chlorides are pending but needed to evaluate her urine anion gap). continue oral sodium bicarbonate therapy, continue potassium citrate replacement. (5) Hypokalemia: Status: Acute Assessment and plan: improved w/ oral and iv replacement. continue oral replacemtn (6) DVT prophylaxis: Status: Acute Assessment and plan: Sc heparin change to enoxaparin (7) Discharge planning issues: Status: Acute Assessment and plan: Full code Continues to require hospitalization w/ parenteral antibiotics. Patient to go on swing bed status once she is afebrile for 24 hrs. She will need swing for both P.T. rehab d/t severe deconditioning from critical illness and d/t need for parenteral antibiotics. Subjective Subjective Interval history since last seen: Patient complains of generalized weakness. She has been getting up out of bed only to get to the chair. I explained to her that she needs to walk around the room and outside of the room to get her strength back. She is recovering from urosepsis from right obstructive hydronephrosis caused by staghorn calculus. Her urine and blood cultures from 10/12 grew E. coli that was resistant to Levaquin, Cipro, Unasyn but sensitive to cephalosporins, imipenem, and tobra and gent. She was treated w/ initially Levaquin on 10/12 then Ceftriaxone from 10/13 to 10/16 and finally I put her on Meropenem d/t continued fevers. I think that her fevers were primarily continued while on antibiotics d/t her nephrostomy tube failure. She has nephrostomy tube placed on 10/12 but was found to have ceased to function on the evening of 10/14, procurement engineer of 10/15. After much dealings w/ [facility] going through two different urologists on 10/15 and 10/16, she finally had her tube exchanged by IR at [facility] on 10/17. She is starting to feel better but just is weak. I think that she is going to need an extended stay on swing bed while she completes her iv antibiotics. I think that if her fever stays down she can go into swing bed status. She should complete two weeks of iv antibiotics from her first negative blood cultures which was on 10/13. Repeated urine cultures were taken on 10/16 and 10/17 d/t fevers but all have been no growth. I think that she can be de-escalated on her antibiotics given that she now has a functional nephrostomy tube and given that her bacteremia cleared while on Ceftriaxone and her repeat urine cultures came back no growth. Exam Narrative Exam Narrative: Middle aged white female, lying in bed. She appears fatigued but in no acute distress. Alerat and oriented x 3 Lungs: clear Heart: RRR Abdomen: soft, nontender, normal bowel sounds right flank w/ nephrostomy tube in place; no flank tenderness Objective Last Vital Signs Temp 37.7 C H 10/18/20 10:50 Pulse 74 10/18/20 10:50 Resp 19 10/18/20 10:50 BP 147/78 H 10/18/20 10:50 Pulse Ox 97 10/18/20 10:50 Laboratory Results - last 24 hr 10/16/20 10/18/20 10/18/20 16:25 06:04 06:04 WBC 9.82 RBC 3.83 L Hgb 11.3 Hct 33.7 L MCV 88.0 MCH 29.5 MCHC 33.5 RDW 12.6 Plt Count 221 MPV 9.7 Immature Gran % See Differential Neutrophils % 66.0 Band Neutrophils % 3 Lymphocytes % 21.0 Monocytes % 5.0 Eosinophils % 3.0 Basophils % 0.0 Metamyelocytes % 2 Nucleated RBC % 0 Absolute Neutrophils 6.78 H Absolute Lymphocytes 2.06 Absolute Monocytes 0.49 Absolute Eosinophils 0.29 Absolute Basophils 0.00 RBC Morphology See Below Polychromasia Present ESR Sodium 138 Potassium 3.9 Chloride 106 Carbon Dioxide 19.9 L Anion Gap 12.1 H BUN 11 Creatinine 0.7 Estimated GFR/1.73 m2 >= 60.00 Glucose 111 H Calcium 8.0 L C-Reactive Protein 12.37 H Urine Chloride 66 10/18/20 06:04 WBC RBC Hgb Hct MCV MCH MCHC RDW Plt Count MPV Immature Gran % Neutrophils % Band Neutrophils % Lymphocytes % Monocytes % Eosinophils % Basophils % Metamyelocytes % Nucleated RBC % Absolute Neutrophils Absolute Lymphocytes Absolute Monocytes Absolute Eosinophils Absolute Basophils RBC Morphology Polychromasia ESR 59 H Sodium Potassium Chloride Carbon Dioxide Anion Gap BUN Creatinine Estimated GFR/1.73 m2 Glucose Calcium C-Reactive Protein Urine Chloride
[2020-10-18] MEDS: Normal Saline Flush 10 ML SYR IVP (19:50)
[2020-10-18] MEDS: LORazepam 0.5 MG TAB PO (20:38)
[2020-10-18] MEDS: Zolpidem 5 MG TAB PO (20:39)
[2020-10-19] VITALS (8 sets, daily range): BP systolic 113–130; BP diastolic 75–84; PULSE 69–79; RESP 16–18; TEMP 36.5–38; O2SAT 97–99
[2020-10-19] MEDS: hydrOXYzine HCL 25 MG TAB PO ×3 (01:08→10:26)
[2020-10-19] MEDS: Acetaminophen 325 MG TAB PO ×3 (03:19→17:51)
[2020-10-19] MEDS: MEROPENEM 1 GM in Normal Saline 100 ML IVPB (05:34)
[2020-10-19 07:33] LABS: Anion Gap 8.2 mmol/L (3-11); BUN 9 mg/dL (7-18); CO2 23.8 mmol/L (21.0-32.0); CREATININE 0.6 mg/dL (0.55-1.02); Calcium 8.4 mg/dL (8.5-10.1); Chloride 105 mmol/L (98-107); Glucose 116 mg/dL (74-106); Potassium 3.8 mmol/L (3.5-5.1); Sodium 137 mmol/L (136-145)
--- NOTE | 2020-10-19 08:33 | CMPROGNOTE_ITS ---
- If Service Date Differs Date of service: 10/19/20 Time of Service: 08:33 Care Management Progress Note S/O:Jennifer was laying in bed when CM met with her. She appeared to be in good spirits and engaged readily with CM. She stated that she can say that she is feeling better for the first time today.She shared that she got OOB and ambulated to the commode and then to the bathroom independently. As CM was leaving the room, PT came in to do an evaluation. Shonna has had 2 negative sets of blood cultures and her temperature curve is trending down. The provider verbalized that he would prefer her to complete a course of IV antibiotics and that she may need to go into -1 for a week or so when she is past the acute phase of her illness to accomplish this. Yesterday CM was able to confirm that Shonna has active [place] Medicaid under a former last name of Sharath. When this was discussed with Shonna she admitted that she had had [place] Medicaid at one time but did not know it was still active. This information was well received as her [place] Medicaid would not cover medical expenses in [place]. A: Jennifer is a 59 year old woman admitted on 10/12/20 with pyelonephritis P:Anticipate Jennifer will be discharged home with no new services. She will follow up with her community providers and plan of care. CM will continue to support patient and assess for discharge planning needs
[2020-10-19] MEDS: Potassium Bicarbonate/Cit AC 25 MEQ TABLET.EFF PO ×4 (08:34→20:15)
[2020-10-19] MEDS: Enoxaparin 40 MG/0.4 ML SYR SC (08:34)
[2020-10-19] MEDS: Aspirin E.C. 81 MG TABEC PO (08:35)
[2020-10-19] MEDS: Famotidine 20 MG TAB PO ×2 (08:36→20:15)
[2020-10-19] MEDS: Sodium Bicarbonate 650 MG TAB 1300 MG PO ×3 (08:36→20:15)
[2020-10-19] MEDS: cefTRIAXone 2 GM/50 ML BAG IVPB (10:17)
[2020-10-19] MEDS: Normal Saline Flush 10 ML SYR IVP (10:26)
--- NOTE | 2020-10-19 11:23 | PT.INIE ---
Date of service: 10/19/20 Time of Service: 11:23 PT Notes Visit Reasons: Right Pyelonephritits with Calculi Physical Therapy Inpatient Initial Evaluation Date: 10/19/2020 Referring Doctor: Kranthi Nava MD PT Orders: PT CONSULT: Extended stay weakness Precautions: Fall. Standard. Activity as tolerated. Nephrostomy tube in place Patient Profile/Admitting Diagnosis: Shonna is a 59-year-old female who presented to the ED on 10/12/2020 with acute onset right flank pain and nausea. Patient is diagnosed with pyelonephritis, renal calculus, appendicitis, hydronephrosis, renal tubular acidosis, and hypokalemia. Patient is status post nephrost[place] [facility] [place]. PMHX: Medical History ADHD Anxiety HTN (hypertension) Migraine Surgical History S/P hysterectomy Social History/Home Situation: Lives with parents in a private home. Independent in all aspects of ADLs with no assistive nor adaptive equipment prior to admission. Worked as an [employer] for over 35 years now in various states. Equipment Owned/DME: None Subjective: Agreeable to PT consult. States that she feels a lot better than she did on day of admission.Still feels weak. Indicated that she could not even move her finger when she came to the ED last week. She was so week and was in so much pain. Patient feels a little off while she was walking and is hopeful that hse can get her strength and balance soon before she goes home. Objective: General Observation: Nephrostomy tube in place. IV access in L UE. Mental Status: Alert and oriented as to person, place, time, and purpose. Able to pay attention, focus, and respond appropriately. Pain: 0/10 ROM: Right Upper Extremity: Shoulder Flexion WFL. Shoulder abduction WFL. Elbow flexion WFL. Wrist flexion WFL. Functional opening and closing of hand WFL. Left Upper Extremity: Shoulder Flexion WFL. Shoulder abduction WFL. Elbow flexion WFL. Wrist flexion WFL. Functional opening and closing of hand WFL. Right Lower Extremity: Hip flexion WFL. Hip abduction WFL. Knee flexion WFL. Ankle dorsiflexion WFL. Ankle plantarflexion WFL. Left Lower Extremity: Hip flexion WFL. Hip abduction WFL. Knee flexion WFL. Ankle dorsiflexion WFL. Ankle plantarflexion WFL. Strength: Right Upper Extremity: Shoulder flexors 5/5. Shoulder abductors 5/5. Elbow flexors 5/5. Elbow extensors 5/5. Director Of Corporate Communications strong. Left Upper Extremity: Shoulder flexors 5/5. Shoulder abductors 5/5. Elbow flexors 5/5. Elbow extensors 5/5. Director Of Corporate Communications strong. Right Lower Extremity: Hip flexors 4-/5. Hip abductors 4-/5. Knee flexors 4-/5. Knee extensors 4-/5. Ankle dorsiflexors 4/5. Ankle plantarflexors 4/5. Left Lower Extremity: Hip flexors 4-/5. Hip abductors 4-/5. Knee flexors 4-/5. Knee extensors 4-/5. Ankle dorsiflexors 4/5. Ankle plantarflexors 4/5. Bed Mobility/Transfers: Rolling independent Supine to sit independent Sit to supine independent Sit to stand standby assist Stand to sit standby assist Bed to reclining chair standby assist Reclining chair to bed standby assist Gait: Instructed patient with level surface ambulation of 75 feet +100 feet requiring occasional contact-guard assist. Alyssa decreased. Minimal ataxia noted. Balance: Static Sitting: Normal Dynamic Sitting: Normal Static Standing: Good Dynamic Standing: Good Special Tests: Mobility Limitations Standardized Measure [facility] AM-PAC 6 clicks Basic Mobility Inpatient Short Form: Raw Score: 22 CMS Score: 21% deficit Informed Consent/Education: Patient was instructed in purpose of PT consult and plan of care. Agreeable to proceed with established PT POC to achieve personal goals. Assessment: Patient with tendency to cross one foot onto the other with fatigue initially. Will plan on initiating strengthening exercises and balance training to facilitate return to independent mobility level. Patient presents with clinical signs and symptoms consistent with current/admitting diagnoses that have resulted to mobility limitations, gait instability, generalized weakness, and overall ADL decline as demonstrated by the following impairment level findings: 1. Decreased strength to B LE major muscle groups 2. Impaired sitting/standing balance 3. Impaired activity tolerance 4. Mild ataxia Impairments are contributing to the following functional limitations: 3. Difficulty with ambulation 4. Increased completion time for mobility ADL performance 5. Increased risk for falls 6. Difficulty with managing steps alone safely Patient is assessed as a complexity based on the following: History: -year-old with past medical history as indicated above Examination: Demonstrable impairment in strength, balance, and mobility level with underlying impairments and functional limitations as exhibited above as well as deficit score of 21% utilizing the [facility] Mobility Inpatient Short Form Presentation: Decision Makin moderate complexity Goals: Goals X1 week 1. Supine-Sit independent 2. Sit-Supine independent 3. Sit-Stand independent 4. Stand-Sit independent with no assistive device 5. Bed-Chair independent with no assistive device 6. Chair-Bed independent with no assistive device 7. Independent gait on level surface with use of no assistive device for at least 500 feet without report of pain nor dyspnea 8. Independent stair negotiation while holding onto B rails for at least 10 steps without report of pain nor dyspnea 9. Independent with home exercise program 10. Good static and dynamic standing balance/tolerance Plan of Care/Treatment Plan: 1-2x/day, 7 days/week x 1 week. Plan of care has been reviewed with the [employer] E[employer] TECHNICIAN providing the service under Physical Therapy direction. Initiate Physical Therapy intervention for pain management as needed, strengthening, bed mobility, transfers, gait, stairs, balance training, and use of assistive device. DISCHARGE RECOMMENDATIONS: Home when medically cleared by hospitalist/surgeon. TREATMENT CODE/TIME: 37909 x 20 minutes beginning at 11:23 AM. Thank you for the opportunity to participate in the care of this patient. Christiana Anderson PT, DPT, CLT [facility] [place], [place]
[2020-10-19 12:23] LABS: Creatinine,24hr Ur 1.15 g/24hr (0.60-1.80); Creatinine,Urine 34.96 mg/dL; Total Volume 3300 ml
--- NOTE | 2020-10-19 13:36 | W.PM.PROGNOT ---
Date of Service Date of service: 10/19/20 Time of Service: 13:36 Assessment and Plan Assessment and plan (1) Pyelonephritis, acute: Status: Acute Assessment and plan: change meropenem to Rocephin 2 gm daily. She needs to complete another 8 days of parenteral antibiotics and then remains on oral suppressive antibiotics until the calculus is removed. She will need the nephrostomy tube left in place until seen by [facility] urology and the stone has been removed. End date of her Rocephin is 10/27. Afterwards she can go on suppressive regimen w/ Bactrim or fosfomycin (2) Renal calculus, right: Status: Acute Assessment and plan: awaiting results of 24 hr urine study. needs follow up w/ tertiary urology. I will probably send her to [facility] since that is where she had the nephrostomy tube placed. She can follow locally w/ Dr. Kwok. (3) Hydronephrosis: Status: Acute Assessment and plan: s/p replacement of her nephrostomy tube Qualifiers: Hydronephrosis type: with renal calculous obstruction Qualified Code(s): N13.2 - Hydronephrosis with renal and ureteral calculous obstruction (4) Renal tubular acidosis: Status: Suspected Assessment and plan: improving. continue sodium bicarbonate therapy and potassium citrate (5) Hypokalemia: Status: Resolved Assessment and plan: improved w/ oral and iv replacement. continue oral replacemtn (6) DVT prophylaxis: Status: Acute Assessment and plan: Sc enoxaparin (7) Discharge planning issues: Status: Acute Assessment and plan: Full code Continues to require hospitalization w/ parenteral antibiotics. Patient to go on swing bed status once she is afebrile for 24 hrs. She will need swing for both P.T. rehab d/t severe deconditioning from critical illness and d/t need for parenteral antibiotics. Subjective Subjective Patient reports: feels better Interval history since last seen: Patient is feeling better today. She still gets nausea w/ meals but no emesis. Pain is better. She met w/ Candelaria Staples from urology and got inservice on care of her nephrostomy tube. She is very concerned about how she will manage this upon discharge. I told her that I intend to put her into swing bed status tomorrow if her fever stays down that way she can continue w/ P.T., continue her education about her nephrostomy tube and she can finish her parenteral antibiotics. She is on meropenem which I started when she was still having fevers, event though her urine and blood cultures were positive for E. coli and it was sensitive to Rocephin and her blood cultures cleared within a day while on Rocephin. I think that her fevers were d/t the nephrostomy ceasing to function over the weekend. Now she has a new nephrostomy tube she has quit having fevers. I told her that I will change her back to high dose Rocephin but want her to complete two weeks from her first negative blood cultures (10/13; this puts her end date 10/27). Exam Narrative Exam Narrative: Obese, cheerful middle age female who is lying in bed; she is in no distress and in no pain at present Lungs: clear Heart: RRR Abdomen: soft, nontender, nondistended Extremities: no edema Objective Last Vital Signs Temp 36.6 C 10/19/20 08:09 Pulse 78 10/19/20 08:09 Resp 16 10/19/20 08:09 BP 113/78 10/19/20 08:09 Pulse Ox 97 10/19/20 08:09 Laboratory Results - last 24 hr 10/18/20 10/19/20 08:00 06:44 Sodium 137 Potassium 3.8 Chloride 105 Carbon Dioxide 23.8 Anion Gap 8.2 BUN 9 Creatinine 0.6 Estimated GFR/1.73 m2 >= 60.00 Glucose 116 H Calcium 8.4 L Ur Random Creatinine 34.96 Urine Total Volume 3300 Ur Creatinine 24 Hour 1.15
--- NOTE | 2020-10-19 15:07 | CHAPLAIN ---
I had a brief visit with Jennifer today. She was up and getting ready to walk with PT. It was the first time she'd been up in several days. She seemed pleased to be up and moving a little bit. I will continue to visit.
[2020-10-19 18:04] LABS: C Diff PCR Negative (Negative)
--- NOTE | 2020-10-19 18:53 | NUR.NOTE ---
Patient had a good afternoon, she did get a shower as requested, she was able to ambulate from her room to the shower. She was tired after, and was taken back to her room by wheel chair. she did c/o of temp at 1745. and was given tylenol. Next shift aware and will check temp at the start of the shift Nursing Note:
[2020-10-20] VITALS: BP 128/84; PULSE 75; RESP 16; TEMP 37; O2SAT 95
[2020-10-20] MEDS: LORazepam 0.5 MG TAB PO ×2 (00:08→11:55)
[2020-10-20] MEDS: Zolpidem 5 MG TAB PO (00:08)
[2020-10-20] MEDS: hydrOXYzine HCL 25 MG TAB PO (00:08)
[2020-10-20 07:04] LABS: Absolute Basophil Count 0.07 10^3/uL (0.0-0.2); Absolute Eosinophil Count 0.29 10^3/uL (0.0-0.7); Absolute Lymphocyte Count 2.33 10^3/uL (1.2-3.4); Absolute Monocyte Count 1.04 10^3/uL (0.1-0.8); Absolute Neutrophil Count 4.25 10^3/uL (1.2-6.7); Basophils % 0.8; Eosinophils % 3.5; HCT 33.8 % (36.0-46.0); HGB 11.4 g/dL (11.2-15.7); Immature Grans % 4.8; Lymphocytes % 27.8; MCH 29.2 pg (27.0-33.0); MCHC 33.7 % (32.0-36.0); MCV 86.7 fL (80-95); MPV 9.5 fL (8.0-11.0); Monocytes % 12.4; Neutrophils % 50.7; Nucleated RBC 0 %; Platelet Count 278 10^3/uL (130-400); RDW 12.7 % (11.7-14.6); RDW-SD 39.9 fL; WBC 8.38 10^3/uL (4.4-10.8)
[2020-10-20 07:15] LABS: Anion Gap 6.7 mmol/L (3-11); BUN 15 mg/dL (7-18); C-Reactive Protein 6.69 mg/dL (0.0-0.3); CO2 29.3 mmol/L (21.0-32.0); CREATININE 0.7 mg/dL (0.55-1.02); Calcium 8.8 mg/dL (8.5-10.1); Chloride 103 mmol/L (98-107); Glucose 127 mg/dL (74-106); Potassium 4.1 mmol/L (3.5-5.1); Sodium 139 mmol/L (136-145)
[2020-10-20 07:27] VITALS: BP 125/82; PULSE 73; RESP 17; TEMP 37.2; O2SAT 95
[2020-10-20 07:39] LABS: Procalcitonin 1.4 ng/mL
--- NOTE | 2020-10-20 08:03 | UCONE_ITS ---
Date of service: 10/19/20 Time of Service: 12:03 Assessment and Plan Assessment and plan (1) Renal calculus, right: Status: Acute Assessment and plan: Ms. Ignacio is a pleasant 59-year-old female with a right renal staghorn calculi. Nephrostomy tube placement to her right flank was done earlier this week. It appears to be functioning appropriately. The majority of our 30-minute conversation was spent on the planned percutaneous nephrolithotripsy that will be done at [facility]. We discussed the basic concept of the procedure and provided her with a video with information. She was also given a handout on nephrostomy tube care that included not only dressing changing but when and how to shower. After our lengthy discussion and education, she expressed understanding and that all of her questions and concerns were answered at this time. She noted that she was tired and would like to sleep. Nursing staff was made aware of being able to shower 48 hours after next tube was placed but needing to use a waterproof dressing over top of the nephrostomy tube site and changing the dressing after shower was complete. If patient has further concerns or questions please feel free to reach out to us and we will do our best answer. Please note that general procedure for a percutaneous nephrolithotripsy was discussed and variation may occur based upon [facility] provider. Dictation was done by [employer] voice recognition. Errors may be present within the note. A total of 30 minutes was spent reviewing this patient's EMR, [id number] time, and documenting. History of Present Illness Narrative: Jennifer is a 59-year-old female with right staghorn calculi. She presented to the emergency room with urosepsis. She then needed to be transported to IR at [facility] for nephrostomy tube placement. She is being scheduled for percutaneous nephrolithotripsy for her right staghorn calculi. Plan appears to be having this at [facility]. Patient reports feeling well but has concerns about the procedure and care for her nephrostomy tube until procedure can occur. Hospitalist asked that we speak to this individual about these matters and provide education. Consults Consult date: 10/19/20 Requesting physician: Kranthi Nava Review of Systems All systems reviewed & are unremarkable except as noted in HPI and below PFSH Medical History ADHD Anxiety HTN (hypertension) Migraine Surgical History S/P hysterectomy Social History Smoking/Tobacco Use Status: Never Smoking risk assessment performed?: Yes Alcohol Intake: current Alcohol Intake frequency: a few times a month Drug use: Never Substance use type: does not use Do you feel safe at home: Yes Do you feel safe in your relationship?: Yes Exam Const General: cooperative Orientation: alert, awake and oriented x3 Eyes Sclera: sclerae normal Resp Effort & Inspection: normal respiratory effort GI Inspection: normal to inspection and non-distended Skin Other: Nephrostomy tube to right flank without signs or symptoms of infection. Holding stitch in place. Dressing was clean dry and intact. Tube is draining clear yellow urine. Results Last Vital Signs Temp 99.0 F 10/20/20 07:27 Pulse 73 10/20/20 07:27 Resp 17 10/20/20 07:27 BP 125/82 10/20/20 07:27 Pulse Ox 95 10/20/20 07:27 Labs Result diagrams: 10/20/20 06:20 10/20/20 06:20 Labs: Laboratory Results - last 24 hr 10/18/20 10/19/20 10/20/20 08:00 17:00 06:20 WBC 8.38 RBC 3.90 L Hgb 11.4 Hct 33.8 L MCV 86.7 MCH 29.2 MCHC 33.7 RDW 12.7 Plt Count 278 MPV 9.5 Immature Gran % 4.8 Neutrophils % 50.7 Lymphocytes % 27.8 Monocytes % 12.4 Eosinophils % 3.5 Basophils % 0.8 Nucleated RBC % 0 Absolute Neutrophils 4.25 Absolute Lymphocytes 2.33 Absolute Monocytes 1.04 H Absolute Eosinophils 0.29 Absolute Basophils 0.07 Sodium Potassium Chloride Carbon Dioxide Anion Gap BUN Creatinine Estimated GFR/1.73 m2 Glucose Calcium C-Reactive Protein Procalcitonin Ur Random Creatinine 34.96 Urine Total Volume 3300 Ur Creatinine 24 Hour 1.15 Stl C.difficile Tox PCR Negative 10/20/20 10/20/20 06:20 06:20 WBC RBC Hgb Hct MCV MCH MCHC RDW Plt Count MPV Immature Gran % Neutrophils % Lymphocytes % Monocytes % Eosinophils % Basophils % Nucleated RBC % Absolute Neutrophils Absolute Lymphocytes Absolute Monocytes Absolute Eosinophils Absolute Basophils Sodium 139 Potassium 4.1 Chloride 103 Carbon Dioxide 29.3 Anion Gap 6.7 BUN 15 D Creatinine 0.7 Estimated GFR/1.73 m2 >= 60.00 Glucose 127 H Calcium 8.8 C-Reactive Protein 6.69 H Procalcitonin 1.4 Ur Random Creatinine Urine Total Volume Ur Creatinine 24 Hour Stl C.difficile Tox PCR
[2020-10-20] MEDS: Aspirin E.C. 81 MG TABEC PO (08:26)
[2020-10-20] MEDS: Famotidine 20 MG TAB PO (08:26)
[2020-10-20] MEDS: Sodium Bicarbonate 650 MG TAB 1300 MG PO ×2 (08:26→13:37)
[2020-10-20] MEDS: Potassium Bicarbonate/Cit AC 25 MEQ TABLET.EFF PO ×2 (08:27→11:55)
[2020-10-20] MEDS: Enoxaparin 40 MG/0.4 ML SYR SC (08:27)
--- NOTE | 2020-10-20 08:40 | PDOC.CMPRO ---
- If Service Date Differs Date of service: 10/20/20 Time of Service: 08:40 Care Management Progress Note S/O:Jennifer was laying in bed when CM met with her.She was in good spirits and informed CM that she is feeling well. She will be transitioned to SB-1 today to complete her course of IV antibiotics and to work with PT for strengthening. A midline catheter was placed today to support the delivery of the longer course of IV antibiotics. A: Jennifer is a 59 year old woman admitted on 10/12/20 with pyelonephritis P: Jennifer will be transitioned to SB-1 today to complete her course of IV antibiotics and for PT. Anticipate Jennifer will be discharged home with no new services. She will follow up with her community providers and plan of care. CM will continue to support patient and assess for discharge planning needs
[2020-10-20] MEDS: cefTRIAXone 2 GM/50 ML BAG IVPB (10:20)
--- NOTE | 2020-10-20 13:58 | DSE_ITS ---
Date of service: 10/20/20 Time of Service: 13:58 DS: Diagnosis Discharge Diagnosis (1) E. coli sepsis: Status: Acute Asessment and Plan: E. coli sepsis secondary to staghorn calculus causing pyelonephritis and right-sided hydronephrosis and renal tubular acidosis. Patient found to have bacteremia on admission on October 12, 2020 which resolved with broad-spectrum antibiotics including Levaquin Rocephin and vancomycin. E. coli was resistant to Levaquin which was discontinued on October 13, 2020 vancomycin was discontinued on October 14, 2020. Patient continued on Rocephin 2 g daily until she was switched to meropenem on October 16, 2020 because of persistent fever spikes. Patient underwent right nephrostomy tube on October 12, 2020 at [facility] interventional radiology. Right nephrostomy tube was found to have ceased functioning in the early breastfeeding care specialist hours in October 15, 2020 at which point both interventional radiology and urology at [facility] was consulted. After multiple discussions [id number] between this hospital service and both services at [facility] eventually IR radiology arrange for down back procedure including nephrostomy tube check and nephrostomy tube exchange on October 17, 2020. After which fever spikes defervesced and she was switched back for meropenem to Rocephin. Patient is to complete a 14-day course of parenteral antibiotics which will end on October 27, 2020. Patient received nephrostomy tube care instruction by the urology service at [facility]. Because of her limited ability to care for herself and generalized weakness and deconditioning from her sepsis it was felt she would benefit from swing bed status for continued physical therapy as well as continuation of parenteral antibiotics. Renal tubular acidosis was treated with supplemental sodium bicarbonate and she was placed on potassium citrate. 24- hour urine collection is still pending results regarding urinary citrate excretion. Patient needs follow-up appointment with tertiary care urology either at [facility] or [facility] upon discharge from [facility]. Urology consultation was obtained with Dr. Parminder Kwok who saw the patient and recommended nephrostomy tube which was then arranged with [facility]. (2) Pyelonephritis, acute: Status: Acute (3) Renal calculus, right: Status: Acute (4) Hydronephrosis: Status: Acute (5) Renal tubular acidosis: Status: Suspected (6) Hypokalemia: Status: Resolved (7) Hypomagnesemia: Status: Acute (8) Abnormal CT scan, gastrointestinal tract: Status: Acute Asessment and Plan: CT scan on admission suggested appendicitis in addit ion to emphysematous right pyelonephritis with hydronephrosis. Surgical consultation was obtained with Dr. Laura Fuentes who felt that on clinical exam there is no evidence for acute appendicitis. (9) Discharge planning issues: Status: Acute Discharge Plan Disposition [facility] Disposition: [facility] BED LEVEL 1 Condition: Stable Discharge Details Reason For Visit: Right Pyelonephritits with Calculi Admit Date/Time: 10/12/20 04:32 Admit Provider: Sam Pate Attending Provider: Sam Pate [facility] Hospital Course: 59-year-old female with a history of staghorn renal calculi presented to [facility] emergency department on October 12, 2020 with acute right flank pain and was found to have emphysematous pyelonephritis with staghorn calculus and hydronephrosis per CT scan. On admission she denied any fever or chills or gross hematuria. She required antiemetics and IV narcotics including fentanyl to control her pain. Blood and urine cultures were obtained and patient was started on Levaquin. Blood cultures grew E. coli which was resistant to ciprofloxacin and Levaquin as well as ampicillin and ampicillin sulbactam but reportedly sensitive to ceftriaxone and other cephalosporins as well as imipenem and tobramycin and gentamicin. The day hospitalist put her on Rocephin in addition to Levaquin the next day because of continued fever spikes. Consultation was obtained with Dr. Kwok who recommended the patient undergo percutaneous nephrolithotomy and an extended course of oral antibiotics when she is better. Patient was sent down to [facility] to interventional radiology where she had a right nephrostomy tube placed. This was accomplished on October 12, 2020. Repeat blood cultures on October 13, 2020 came back no growth. Blood was found that her urine and blood cultures were resistant to Levaquin and this was discontinued and she was kept on high-dose ceftriaxone 2 g. She was started on vancomycin by the accepting day hospitalist but when the repeat blood culture showed no evidence of Enterococcus or staph aureus the vancomycin was discontinued and by October 13, 2020 her bacteremia had cleared. Patient was given IV fluids and antiemetics and pain medications her her electrolytes were corrected with replacement potassium and magnesium. I assumed her care on October 15, 2020 and sometime during the evening on October 14, 2020 her right nephrostomy tube had ceased to function. I spoke with [facility] nephrology Dr. Kelly who reviewed a stat CT scan that I had ordered that morning which was performed without contrast. This showed decompression of the right kidney and that the nephrostomy tube was in the renal collection system. However when the nephrostomy tube was flushed it flushed okay but failed to draw back and failed to drain. At that point a repeat CT scan of the abdomen pelvis was performed that evening on October 15, 2020 with contrast to evaluate for renal abscess because of her persistent fever spikes. This showed pyelonephritis of the proximal right lower pole the kidney but no abscess fluid collection and the nephrostomy tube was in proper placement. I made repeated calls to urology on October 16, [address] Mcdonnell, who basically deferred the case to interventional radiology as he felt it was not an acute urologic problem. I explained to him that the interventional radiology fellow had referred me to urology. After a number of hours going back and forth between the 2 services I finally was able to get interventional radiology to agree to take the patient is a down and back procedure for SaturdayOctober 17 2020. On October 16, 2020 she had been placed on meropenem because of persistent fever spikes and concern for possible development of ESBL resistance to the Rocephin she was on. Also that I found over the weekend that she had renal tubular acidosis and she was started on sodium bicarbonate and she was also placed on potassium citrate. 24-hour urine was ordered for for urinary citrate which is still pending at this time. Her nephrostomy tube was changed out on October 17, 2020 after which her fever spikes defervesced and her meropenem was changed back to Rocephin 2 g daily. Physical therapy was ordered because of her deconditioning from her sepsis. Patient was fearful going home because she was too weak and felt that she could not manage her nephrostomy tube. Candelaria Wilkins from the urology clinic met with the patient and did nephrostomy tube education. It was felt that the patient needed to complete 14- day course of parenteral antibiotics for her urosepsis and then upon discharge she will need to be on suppressive antibiotic treatment until she can see [facility] urology to have a nephrolithotomy procedure. Patient was transitioned into swing bed status on October 20, 2020. At that time her C-reactive protein was down to 6.6 her electrolytes were corrected she no longer had an anion gap metabolic acidosis her CBC showed improvement in her anemia and resolution of her leukocytosis. And her procalcitonin is down to 1.4 from a peak of 63. Patient will complete her Rocephin therapy on October 27, 2020 at which point she should be placed on suppressive antibiotics. Based on her antibiogram she is resistant to quinolones and ampicillin. I think she can go on a suppressive cephalosporin until she sees urology at [facility]. Upon discharge she should receive the earliest possible appointment with urology to have the nephrolithotomy procedure performed. If [facility] cannot get her an appointment at a reasonable time I would recommend referral to [facility] in [place]. Home Meds and New Rx's Prescriptions: No Action prochlorperazine maleate 10 MG tablet 10 mg PO Q8H PRN Qty: 20 RF: 1 hydroxyzine HCl 25 MG tablet 25 mg PO Q4H PRN Qty: 60 RF: 2 acetazolamide 250 MG tablet 1 - 2 tab PO BID Qty: 120 RF: 3 methylphenidate HCl [Ritalin] 20 MG tablet 20 mg PO TID RF: 0 famotidine [Pepcid] 20 mg tablet 20 mg PO BID Qty: 28 RF: 0 aspirin 81 mg tablet,delayed release (DR/EC) 81 mg PO DAILY Qty: 30 RF: 0 propranolol 80 mg Capsule,Extended Release 24 Hr 160 mg PO DAILY RF: 0 Nurtec ODT 75 mg Tablet,Disintegrating 75 mg PO ONCE PRNRF: 0 modafinil [Provigil] 200 mg Tablet 200 mg PO QAM RF: 0 ibuprofen 800 mg Tablet 800 mg PO PRN PRNRF: 0 acetaminophen [Tylenol Extra Strength] 500 mg Tablet 1,000 mg PO PRN PRNRF: 0 cyclobenzaprine 10 mg tablet 10 mg PO TID PRN (Reason: muscle spasm) Qty: 30 RF: 0 Discharge Instructions Instructions: Kidney Infection (DC) Stand Alone Forms: Nursing Discharge Form Referrals: No,Local [Primary Care Provider] - (Patient just moved here and would like to set up her own PCP appointment. ) Activity:: Activity as Tolerated Equipment/Supplies:: No Equipment Needed Diet:: Low Sodium Discharge Orders Discharge Orders: Discharge Order (Routine); Ordered 10/20/20 Ordered By: Kranthi Nava Discharge Data Discharge Date/Time-TO BE ENTERED AT DEPARTURE: 10/20/20 15:45 DS: Summary Time Spent with Patient providing and/or coordinating discharge services: Greater than 30 minutes Status at Discharge Functional status at discharge: independent ambulation Overall status at discharge: patient is progressing back to baseline Mental Status: mental status grossly normal Speech and Movement: speech and movement normal Mood: congruent mood Affect: normal affect Exam Narrative Exam Narrative: Obese, cheerful middle age female who is lying in bed; she is in no distress and in no pain at present Lungs: clear Heart: RRR Abdomen: soft, nontender, nondistended Extremities: no edema Const General: cooperative and ill appearing Nutritional Appearance: obese Orientation: alert, awake and oriented x3 Resp Effort & Inspection: normal respiratory effort and able to speak in complete sentences Auscultation: clear to auscultation bilaterally Cardio Jugular venous pressure: no JVD Palpation: normal PMI Rate: regular rate Rhythm: regular rhythm Heart Sounds: S1 normal, S2 normal and normal, physiologic split S2 Pulses: normal peripheral pulses GI Inspection: normal to inspection Palpation: soft and no hepatosplenomegaly Percussion: normal to percussion Auscultation: normal bowel sounds General: CVA tenderness on the right Psych Mental Status: mental status grossly normal Speech and Movement: speech and movement normal Mood: congruent mood Affect: normal affect DS: Data Vitals/I&O Vitals and I&O: Vital Signs Temperature 37.2 C 10/20/20 07:27 Temperature Source Tympanic 10/20/20 07:27 Pulse 73 10/20/20 07:27 Pulse Rhythm Regular 10/20/20 12:23 Respiratory Rate 17 10/20/20 07:27 Respiratory Effort Non-Labored 10/20/20 12:23 Respiratory Depth Normal 10/20/20 12:23 Respiratory Pattern Normal 10/20/20 12:23 Blood Pressure 125/82 10/20/20 07:27 Blood Pressure Mean 95 10/12/20 05:15 Blood Pressure Position Sitting 10/12/20 02:40 Pulse Oximetry 95 10/20/20 07:27 Oxygen Delivery Method Room Air 10/20/20 07:27 Oxygen Flow Rate 0 10/20/20 07:27 Pain Level 1 10/20/20 07:27 Comment 10/18/20 10:50 Intake & Output 10/19/20 10/20/20 10/20/20 23:59 11:59 23:59 Intake Total 315 / 675 Output Total 200 / 1040 590 / 1090 500 / 1090 Balance 115 / -365 -590 / -1090 -500 / -1090 Intake: Oral 315 / 515 Output: Drainage 90 / 290 200 / 290 Right Mid Posterior Back 90 / 290 200 / 290 Urine 200 / 500 500 / 800 300 / 800 Other: Urine Color Pale Yellow Light Geri Yellow Urine Appearance Clear Clear Clear Urine Odor None Normal Comment from urostomy patient reports voiding directly in toilet, hat placed to measure at this time. Stool Size Moderate Stool Characteristics Soft Voiding Methods Toilet Toilet Data Completed and Pending Labs on day of discharge: Labs from last 24 hours 10/20/20 10/20/20 10/20/20 06:20 06:20 06:20 WBC 8.38 RBC 3.90 L Hgb 11.4 Hct 33.8 L MCV 86.7 MCH 29.2 MCHC 33.7 RDW 12.7 Plt Count 278 MPV 9.5 Immature Gran % 4.8 Neutrophils % 50.7 Lymphocytes % 27.8 Monocytes % 12.4 Eosinophils % 3.5 Basophils % 0.8 Nucleated RBC % 0 Absolute Neutrophils 4.25 Absolute Lymphocytes 2.33 Absolute Monocytes 1.04 H Absolute Eosinophils 0.29 Absolute Basophils 0.07 Sodium 139 Potassium 4.1 Chloride 103 Carbon Dioxide 29.3 Anion Gap 6.7 BUN 15 D Creatinine 0.7 Estimated GFR/1.73 m2 >= 60.00 Glucose 127 H Calcium 8.8 C-Reactive Protein 6.69 H Procalcitonin 1.4 Stl C.difficile Tox PCR 10/19/20 17:00 WBC RBC Hgb Hct MCV MCH MCHC RDW Plt Count MPV Immature Gran % Neutrophils % Lymphocytes % Monocytes % Eosinophils % Basophils % Nucleated RBC % Absolute Neutrophils Absolute Lymphocytes Absolute Monocytes Absolute Eosinophils Absolute Basophils Sodium Potassium Chloride Carbon Dioxide Anion Gap BUN Creatinine Estimated GFR/1.73 m2 Glucose Calcium C-Reactive Protein Procalcitonin Stl C.difficile Tox PCR Negative PFSH Medical History ADHD Anxiety HTN (hypertension) Migraine Surgical History S/P hysterectomy Social History Smoking/Tobacco Use Status: Never Smoking risk assessment performed?: Yes Alcohol Intake: current Alcohol Intake frequency: a few times a month Drug use: Never Substance use type: does not use Do you feel safe at home: Yes Do you feel safe in your relationship?: Yes
--- NOTE | 2020-10-20 15:07 | PTTR_ITS ---
PT Notes Visit Reasons: Right Pyelonephritits with Calculi 10/20/2020 SUBJECTIVE: Jennifer stating she has lost several pounds since her admission. She does not care for the food here. She notes fatigue in her upper legs when walking. OBJECTIVE: TRANSFERS Sit to stand: SBA Stand to sit: SBA GAIT Device: None Weight bearing: Full Assist: SBA Distance: 300' Deviation: Path deviations throughout, self corrected, mild sway to the left. THEREX: Review and advise on hourly exercises to be performed independently including LAQ's and seated marching. ASSESSMENT: Able to tolerate increase in gait distance. Pt demonstrates weakness with gait with observations of path deviations and sway, easy fatiguability. PLAN: Continue per current POC. Treatment time: 15' [id number] Sol Hernández PTA Clinic location: [facility] [place], [place]
[2020-10-26 12:59] LABS: Urine Volume 3300 mL
[2020-10-26 13:02] LABS: Citrate Excretion, 24hr, U See Comments mg/24 h
== END 2020-10-20 15:45 | disposition swing bed (61) | DRG 872 ==
LOC: ER 04:55 → MS 05:43
PROVIDERS: Internal Medicine; Admitting Provider Family Medicine; Emergency Provider Emergency Medicine; Visit Provider Family Medicine
DX: A41.51 Sepsis due to Escherichia coli [E. coli] (principal); N13.6 Pyonephrosis; Z68.41 Body mass index [BMI] 40.0-44.9, adult; T83.092A Other mechanical complication of nephrostomy catheter, initial encounter; I10 Essential (primary) hypertension; F41.9 Anxiety disorder, unspecified; G43.909 Migraine, unspecified, not intractable, without status migrainosus; F90.9 Attention-deficit hyperactivity disorder, unspecified type; N20.0 Calculus of kidney; Z87.442 Personal history of urinary calculi; Z20.822 Contact with and (suspected) exposure to COVID-19; E83.42 Hypomagnesemia; E87.6 Hypokalemia; B96.20 Unspecified Escherichia coli [E. coli] as the cause of diseases classified elsewhere; E66.9 Obesity, unspecified; N25.89 Other disorders resulting from impaired renal tubular function
CPT/HCPCS: 36410; 36415; 80048; 80053; 82507; 82805; 83690; 84145; 85027; 85652; 87040; 87077; 87493; 87635; 96365; 96375; 97162; 99285; J1650; 74176; 74177; 80202; 81003; 81015; 82436; 82570; 83605; 83735; 84132; 84133; 84300; 85025; 86140; 87086; 87186; 99223; 99231; 99232; 99233; 99239; A0425; A0426; A0427; A0429; J0131; J1644; J1885; J1956; J2405; J3010; J3475; J3480; J3490

== ENCOUNTER 2020-10-20 14:00 | Inpatient (IN) | payer MEDICAID, SELFPAY ==
--- NOTE | 2020-10-20 14:05 | W.PM.HP.N ---
Date of service: 10/20/20 Time of Service: 14:05 Assessment and Plan Assessment and plan (1) Pyelonephritis, acute: Status: Acute Assessment and plan: Resolving. Continue Rocephin 2 g IV daily. Patient had a midline placed just prior to discharge to swing bed status. She will complete her antibiotic therapy October 27, 2020 at which point her midline will need to be removed. She should go home with nephrostomy tube in place and be placed on suppressive oral antibiotics until she can have her percutaneous nephrolithotomy performed. Patient needs referral to either [facility] urology services or [facility] urology services. [facility] is preferred as they know her from her nephrostomy tube placement. Urologist familiar with her include Dr. Mcdonnell and Dr. Moscoso (2) Hydronephrosis: Status: Acute Assessment and plan: Right kidney was decompressed by replacement of her nephrostomy tube. Nephrostomy tube continues to function. Patient has received educational support from Candelaria Wilkins from the [facility] urology clinic. Qualifiers: Hydronephrosis type: with renal calculous obstruction Qualified Code(s): N13.2 - Hydronephrosis with renal and ureteral calculous obstruction (3) Renal calculus, right: Status: Acute Assessment and plan: As above (4) Renal tubular acidosis: Status: Suspected Assessment and plan: Check repeat BMP next week. Check 24-hour urine citrate level which is pending at this time. (5) HTN (hypertension): Status: Chronic Assessment and plan: Continue her home dose of propranolol. Qualifiers: Hypertension type: primary hypertension Qualified Code(s): I10 - Essential (primary) hypertension (6) Discharge planning issues: Status: Acute Assessment and plan: Patient will be discharged home on October 27, 2020. It is anticipated that she will have no further home nursing or home PT needs. Patient should be set up for urology follow-up at one of the above-mentioned tertiary care centers. History of Present Illness History of Present Illness Chief Complaint: Right pyelonephritis with E. coli bacteremia and hydronephrosis Narrative: See discharge summary for details regarding her hospital course. Patient was hospitalized acutely from October 12, 2020 through October 20, 2020 for E. coli bacteremia secondary to emphysematous right pyelonephritis caused by nephrolithiasis causing obstructive uropathy. E. coli was found to be resistant to quinolones and ampicillin sulbactam but sensitive to cephalosporins. Patient was initially treated with Levaquin in the emergency department but Rocephin and vancomycin were added. Follow-up blood cultures on October 13, [address] scan in addition to showing the pyelonephritis and hydronephrosis on the right showed some suggestion of possible appendicitis. This was read by Cedric mei but then over read by our own radiologist. Surgical consultation was obtained with Dr. Laura Fuentes who felt there was no clinical evidence for appendicitis. Urology consultation was obtained with Dr. Parminder Kwok who recommended IR placement of a right nephrostomy tube. This was accomplished to [facility] interventional radiology service on October 12, 2020. Repeat blood cultures came back no growth in October 13, 2020 at which point Levaquin was discontinued and vancomycin was discontinued on October 14, 2020. She was kept on Rocephin 2 g daily but when she had persistent fever spikes over the weekend of October 15 and October 17, 2019 when she was put on meropenem. The right nephrostomy tube ceased to function in the operations dispatcher hours in October 15, 2020. Despite the fact that the tube would flush it would not drain at all at which point both urology and interventional radiology were contacted [facility]. Eventually interventional radiology excepted the patient for down the back procedure which was arranged for SaturdayOctober 17, 2020. The right nephrostomy tube was found to be nonfunctional at which point they did a tube exchange. After which her fever spikes defervesced and she was switched back to Rocephin 2 g daily. She is now admitted to swing bed status because of generalized weakness and deconditioning due to her sepsis and pyelonephritis. She received physical therapy services while in acute inpatient. She was progressing but still needed some additional therapy services as well as continuation of parenteral antibiotics and nephrostomy tube care. She will complete her parenteral antibiotics in October 27, 2020. At that point she will need to go on suppressive antibiotic therapy until she can see tertiary care center urology services to have a nephro lithotomy procedure performed. Recommend she be referred to urology at [facility] as they know her from her nephrostomy tube placement and exchange. However if urology at [facility] delays follow-up I would recommend pursuit elsewhere such as [facility]. It is important that she have the procedure done as soon as possible. During hospital stay she was found to have renal tubular acidosis which was corrected with oral supplementation with sodium bicarbonate and potassium citrate. Her hypomagnesemia and hypokalemia were corrected with oral supplementation. At the time of admission her potassium was upper range of normal and her anion gap had been corrected. At the time of admission her 24 urine for citrate is pending at this time. Review of Systems All systems reviewed & are unremarkable except as noted in HPI and below PFSH Medical History ADHD Anxiety HTN (hypertension) Migraine Surgical History S/P hysterectomy Social History Smoking/Tobacco Use Status: Never Smoking risk assessment performed?: Yes Alcohol Intake: current Alcohol Intake frequency: a few times a month Drug use: Never Substance use type: does not use Do you feel safe at home: Yes Do you feel safe in your relationship?: Yes Meds Allergies and Home Medications Allergies Allergy/AdvReac Type Severity Reaction Status Date / Time Penicillins Allergy Severe Hives Unverified 10/12/20 04:06 acetaminophen [From Percocet] AdvReac Intermediate Headache Verified 10/13/20 16:11 oxycodone [From Percocet] AdvReac Intermediate Headache Verified 10/13/20 16:11 Home Medications Medication Instructions Recorded Confirmed Type methylphenidate HCl [Ritalin] 20 mg PO TID 01/12/15 10/20/20 History hydroxyzine HCl 25 mg PO Q4H PRN #60 tab-cap 05/23/15 10/20/20 History prochlorperazine maleate 10 mg PO Q8H PRN #20 tab-cap 05/23/15 10/20/20 History acetazolamide 1 - 2 tab PO BID #120 tab-cap 09/27/15 10/20/20 History acetaminophen [Tylenol Extra 1,000 mg PO PRN PRN 03/25/19 10/20/20 History Strength] cyclobenzaprine 10 mg PO TID PRN #30 tab 03/25/19 10/20/20 Rx ibuprofen 800 mg PO PRN PRN 03/25/19 10/20/20 History modafinil [Provigil] 200 mg PO QAM 03/25/19 10/20/20 History aspirin 81 mg PO DAILY #30 tab 04/02/19 10/20/20 Rx famotidine [Pepcid] 20 mg PO BID #28 tab 04/02/19 10/20/20 Rx propranolol 160 mg PO DAILY 10/12/20 10/20/20 History rimegepant [Nurtec ODT] 75 mg PO ONCE PRN 10/12/20 10/20/20 History Exam Narrative Exam Narrative: Exam Narrative: Obese, cheerful middle age female who is sitting up in bed; she is in no distress and in no pain at present Lungs: clear Heart: RRR Abdomen: soft, nontender, nondistended Extremities: no edema Const General: cooperative and ill appearing Nutritional Appearance: obese Orientation: alert, awake and oriented x3 Resp Effort & Inspection: normal respiratory effort and able to speak in complete sentences Auscultation: clear to auscultation bilaterally Cardio Jugular venous pressure: no JVD Palpation: normal PMI Rate: regular rate Rhythm: regular rhythm Heart Sounds: S1 normal, S2 normal and normal, physiologic split S2 Pulses: normal peripheral pulses GI Inspection: normal to inspection Palpation: soft and no hepatosplenomegaly Percussion: normal to percussion Auscultation: normal bowel sounds General: CVA tenderness on the right Psych Mental Status: mental status grossly normal Speech and Movement: speech and movement normal Mood: congruent mood Affect: normal affect Results Labs Result diagrams: 10/22/20 06:30
[2020-10-20 15:56] VITALS: BP 102/60; PULSE 81; RESP 16; TEMP 36.8; O2SAT 94
[2020-10-20] MEDS: Potassium Bicarbonate/Cit AC 25 MEQ TABLET.EFF PO ×2 (16:41→20:08)
[2020-10-20] MEDS: Zolpidem 5 MG TAB PO (20:09)
[2020-10-20] MEDS: Sodium Bicarbonate 650 MG TAB 1300 MG PO (20:09)
[2020-10-20] MEDS: Famotidine 20 MG TAB PO (20:09)
[2020-10-20] MEDS: LORazepam 0.5 MG TAB PO (20:09)
[2020-10-20] MEDS: Acetaminophen 325 MG TAB PO (20:10)
[2020-10-20 23:37] VITALS: BP 112/74; PULSE 80; RESP 17; TEMP 36; O2SAT 97
[2020-10-21] MEDS: hydrOXYzine HCL 25 MG TAB PO (01:02)
[2020-10-21 07:26] VITALS: BP 133/83; PULSE 92; RESP 18; TEMP 37.1; O2SAT 97
[2020-10-21] MEDS: Mylanta Suspension 30 ML CUP PO (07:33)
[2020-10-21] MEDS: Acetaminophen 325 MG TAB PO ×2 (07:34→19:48)
[2020-10-21] MEDS: LORazepam 0.5 MG TAB PO ×2 (07:34→19:48)
[2020-10-21] MEDS: Famotidine 20 MG TAB PO ×2 (07:34→19:48)
[2020-10-21] MEDS: Sodium Bicarbonate 650 MG TAB 1300 MG PO ×2 (07:34→15:36)
[2020-10-21] MEDS: Potassium Bicarbonate/Cit AC 25 MEQ TABLET.EFF PO ×3 (07:34→15:36)
[2020-10-21 08:00] VITALS: BP 133/80; PULSE 80; RESP 16; TEMP 37; O2SAT 96
[2020-10-21] MEDS: Aspirin E.C. 81 MG TABEC PO (08:04)
[2020-10-21] MEDS: Normal Saline Flush 10 ML SYR IVP ×3 (08:05→19:50)
[2020-10-21] MEDS: Enoxaparin 40 MG/0.4 ML SYR SC (08:08)
[2020-10-21 10:00] VITALS: BP 100/67; PULSE 83; RESP 16; TEMP 36.6; O2SAT 97
[2020-10-21] MEDS: cefTRIAXone 2 GM/50 ML BAG IVPB (10:08)
[2020-10-21] MEDS: Normal Saline 500 ML 100 ML IV (10:08)
[2020-10-21 15:30] VITALS: BP 112/75; PULSE 74; RESP 18; TEMP 37.2; O2SAT 96
--- NOTE | 2020-10-21 15:40 | PHA.REVIEW ---
Pharmacy Admission Review - Admission Clinical Review Penicillins Allergy (Severe, Unverified 10/12/20 04:06) Hives acetaminophen [From Percocet] Adverse Reaction (Intermediate, Verified 10/13/20 16:11) Headache oxycodone [From Percocet] Adverse Reaction (Intermediate, Verified 10/13/20 16:11) Headache Resuscitation Status Full Code Height 5 ft 4.17 in Weight 95.3 kg - Renal Dosing Medications needing adjustments: Reviewed (Crcl ~99.7 mL/min using adjusted body weight, current meds okay) - Anticoagulation DVT Prophylaxis: Reviewed Medications: Enoxaparin Therapeutic Anticoagulation: N/A - Opiate Usage Evaluate Pain Scale/Pains Meds: Intervened (pt has not used a dose since the , will ask provider about need.) Scheduled Bowel Reg ordered if on Opiates?: Yes - Relevant Labs Electrolytes, C-Reactive P, ESR: N/A - DM Control Insulin Dosing: N/A - Heart Failure/NV EF%, PRINCE's, B-Blockers, Diuretics: N/A - BP Control BP Control: Blood Pressure 112/75 Blood Pressure 100/67 Blood Pressure 133/80 Blood Pressure 133/83 If elevated: N/A - Qtc Review If Elevated: N/A - IV to PO Switch IV Medications: Reviewed - Home Meds Home Med List reviewed: Reviewed (Modafinil may decrease the serum concentration of rimegepant; recommended to avoid concomitant use to avoid potential loss of rimegepant efficacy. Aspirin may enhance the adverse/toxic effect of acetazolamide; avoid combination if possible, monitor closely for adverse effects.) Relevent Home Meds Not ordered & why?: acetazolamide, cyclobenzaprine (PRN), ibuprofen (PRN), rimegepant (PRN) - Current meds Current Medication Order Review: Intervened (Pt was put on the sodium bicarbonate and potassium bicarbonate/citric acid during her acute stay, asked provider about how long he planned to continue these.) - Comments Comments/Follow Ups: Watch VS, K+, labs and for med changes. Antibiotic Activity - Pharmacy Antibiotic Review Pharmacy Antibiotic Activity: Reviewed, no change (Ceftriaxone continues, expected end date 10/27/20 per provider.)
--- NOTE | 2020-10-21 19:16 | CM.SWINGPC ---
- If Service Date Differs Date of service: 10/21/20 Time of Service: 19:16 Swingbed Plan of Care Plan of care: SWING BED PROGRAM ACTIVITIES/DISCHARGE PLAN OF CARE ACTIVITIES PLAN Date:10/21/20 Identified Need:Individualized activity plan Intervention/Plan:Jennifer enjoys watching TV, reading and interacting with staff. She would also enjoy music and pet therapy when /if available. Initials [facility] [place] DISCHARGE PLAN Date:10/21/20 Identified Need:safe discharge plan Intervention/Plan:Jennifer will be discharged home with no new services. She will follow up with her community providers and plan of care and transport with family. Initials [facility] [place]
--- NOTE | 2020-10-21 19:17 | CMSA_ITS ---
- If Service Date Differs Date of service: 10/21/20 Time of Service: 19:17 SB Psychosocial/Act.Assessment - Hospital Admission Admission Date: 10/12/20 Admission From:: ED Diagnosis:: Pyelonephritis - Swing Bed Admission Swing Bed Admit Date:: 10/20/20 Swing Bed Level of Care: Level 1/SNF - Social Supports PREVIOUS FUNCTIONAL STATUS/SOCIAL/FAMILY SUPPORTS:: Jennifer recently relocated [place] [facility] [place] and lives with her father. She has one son who lives in [place]. Jennifer is engaged and her fiancee is currently in [place], where he is from. She is independent at baseline. - Education Highest Grade Completed:: 3 years of college Where did you attend School:: Different schools in [place] and on line Special Education/Training:: CENTRAL SERVICES TECH - Work History Employment Status:: unemployed since 07/21 but has job offers at [employer] and at [employer] [facility] [place]: Yes - Benefits Financial: Medicaid - V[employer]oo Active [employer] Member:: No - Advance Directives for Healthcare If no AD, do you want more information:: No - Interests Hobbies:: walking, going to the ocean Table Games:: enjoys table games, card games Sports:: enjoys watching sports on TV Music:: 70's and 80's easy listening TV/Movies:: adventure, suspense but not scary Outdoor Activities:: walking, kayaking Gardening:: has had gardens and enjoys gardening - Present Functional Status Physical Abilities:: good physical condition Cognitive:: excellent A&O X4 Communication:: good verbal and written skills Sensory Systems: wears glasses Behavior:: appropriate - Medical History PAST MEDICAL HISTORY/PAST SURGICAL HISTORY:: Medical History . ADHD. Anxiety. HTN (hypertension). Migraine. Surgical History . S/P hysterectomy General Health:: good Past Psychiatric Treatment:: sees therapist - PTSD - Admission Data Reason for Swing Bed Admission:: to complete antibiotic therapy Discharge Plan:: Jennifer will be discharged home with no new services. She will follow up with her communiuty providers and plan of care and transport with family. She will be scheduled to have surgery to remove the staghorn calculus at a tertiary care facility when the infection has been adequately treated.CM will continue to support Tegan and assess for discharge planning needs. Assessment: Jennifer is a pleasant lady who is in SB-1 to complete a course of IV antibiotics and to work with PT for strengthening. She is pleasant and cooperative and engages well with staff. Warehouse Laborer: Echo Graves Date Assessment was completed:: 10/21/20
[2020-10-21] MEDS: Zolpidem 5 MG TAB PO (19:49)
[2020-10-21 23:47] VITALS: BP 101/62; PULSE 71; RESP 18; TEMP 36.7; O2SAT 96
[2020-10-22] VITALS (14 sets, daily range): BP systolic 96–132; BP diastolic 61–76; PULSE 73–89; RESP 16–20; TEMP 36.3–38.7; O2SAT 94–97
[2020-10-22] MEDS: Acetaminophen 325 MG TAB PO (02:46)
[2020-10-22 07:02] LABS: Anion Gap 4.5 mmol/L (3-11); BUN 13 mg/dL (7-18); CO2 30.5 mmol/L (21.0-32.0); CREATININE 0.9 mg/dL (0.55-1.02); Calcium 8.6 mg/dL (8.5-10.1); Chloride 99 mmol/L (98-107); Glucose 145 mg/dL (74-106); Potassium 4.7 mmol/L (3.5-5.1); Sodium 134 mmol/L (136-145)
[2020-10-22] MEDS: Enoxaparin 40 MG/0.4 ML SYR SC (08:42)
[2020-10-22] MEDS: Famotidine 20 MG TAB PO ×2 (08:42→21:26)
[2020-10-22] MEDS: Normal Saline Flush 10 ML SYR IVP ×3 (08:42→21:24)
[2020-10-22] MEDS: Aspirin E.C. 81 MG TABEC PO (08:42)
[2020-10-22] MEDS: cefTRIAXone 2 GM/50 ML BAG IVPB (10:19)
[2020-10-22] MEDS: Zolpidem 5 MG TAB PO (21:22)
[2020-10-22] MEDS: LORazepam 0.5 MG TAB PO (21:23)
[2020-10-23 06:51] VITALS: BP 104/68; PULSE 70; RESP 16; TEMP 36.8; O2SAT 96
[2020-10-23 07:35] LABS: HCT 37.8 % (36.0-46.0); HGB 12.3 g/dL (11.2-15.7); MCH 28.6 pg (27.0-33.0); MCHC 32.5 % (32.0-36.0); MCV 87.9 fL (80-95); MPV 9.3 fL (8.0-11.0); Platelet Count 328 10^3/uL (130-400); WBC 10.92 10^3/uL (4.4-10.8)
[2020-10-23] MEDS: Enoxaparin 40 MG/0.4 ML SYR SC (07:37)
[2020-10-23] MEDS: Famotidine 20 MG TAB PO ×2 (07:38→20:06)
[2020-10-23] MEDS: Aspirin E.C. 81 MG TABEC PO (07:38)
[2020-10-23] MEDS: Psyllium PKT 1 EACH PO (07:38)
[2020-10-23] MEDS: Normal Saline Flush 10 ML SYR IVP ×2 (07:44→20:07)
[2020-10-23] MEDS: LORazepam 0.5 MG TAB PO ×2 (15:26→20:06)
[2020-10-23 15:35] VITALS: BP 125/84; PULSE 72; RESP 17; TEMP 36.8; O2SAT 96
[2020-10-23] MEDS: Normal Saline 500 ML 30 ML IV (20:08)
[2020-10-23 21:56] VITALS: BP 120/77; PULSE 76; RESP 18; TEMP 36.8; O2SAT 94
[2020-10-24 01:11] LABS: Source Nasal/Nares
[2020-10-24 02:01] LABS: COVID-19 PCR Negative (Negative)
[2020-10-24] MEDS: Normal Saline Flush 10 ML SYR IVP ×3 (03:38→20:28)
[2020-10-24] MEDS: LORazepam 0.5 MG TAB PO ×2 (05:07→20:28)
[2020-10-24 07:23] LABS: Abs Immature Grans 0.18 10^3/uL (0.0-0.06); Absolute Basophil Count 0.07 10^3/uL (0.0-0.2); Absolute Eosinophil Count 0.17 10^3/uL (0.0-0.7); Absolute Lymphocyte Count 1.93 10^3/uL (1.2-3.4); Absolute Monocyte Count 0.77 10^3/uL (0.1-0.8); Absolute Neutrophil Count 4.48 10^3/uL (1.2-6.7); Basophils % 0.9; Eosinophils % 2.2; HGB 11.8 g/dL (11.2-15.7); Immature Grans % 2.4; Lymphocytes % 25.4; MCH 29.3 pg (27.0-33.0); MCHC 32.8 % (32.0-36.0); MCV 89.3 fL (80-95); MPV 9.3 fL (8.0-11.0); Monocytes % 10.1; Nucleated RBC 0 %; Platelet Count 284 10^3/uL (130-400); RBC 4.03 10^6/uL (3.93-5.22); RDW 11.6 % (11.7-14.6); RDW-SD 37.9 fL
[2020-10-24] MEDS: Aspirin E.C. 81 MG TABEC PO (07:41)
[2020-10-24] MEDS: Famotidine 20 MG TAB PO ×2 (07:42→20:27)
[2020-10-24] MEDS: Enoxaparin 40 MG/0.4 ML SYR SC (07:42)
[2020-10-24 07:52] LABS: Anion Gap 7.4 mmol/L (3-11); BUN 15 mg/dL (7-18); C-Reactive Protein 3.12 mg/dL (0.0-0.3); CO2 26.6 mmol/L (21.0-32.0); CREATININE 0.8 mg/dL (0.55-1.02); Calcium 8.7 mg/dL (8.5-10.1); Chloride 104 mmol/L (98-107); Glucose 126 mg/dL (74-106); Potassium 4.6 mmol/L (3.5-5.1); Sodium 138 mmol/L (136-145)
[2020-10-24 08:12] LABS: Procalcitonin 0.2 ng/mL
[2020-10-24 10:29] VITALS: BP 116/76; PULSE 72; RESP 16; TEMP 36.5; O2SAT 100
--- NOTE | 2020-10-24 12:37 | PT.INTREAT ---
Date of service: 10/24/20 Time of Service: 10:00 PT Notes Visit Reasons: Pyelonephritis Inpatient Physical Therapy Treatment Note [facility] Date: 10/24/2020 PRECAUTIONS: Nephrostomy tube SUBJECTIVE: Jennifer is pleasant and agreeable to participating in PT. She reports that she was walking in the hallways independently over the weekend, and I cleaned my room and made my bed without help this weekend. She also reports that she has been compliant with her HEP. OBJECTIVE: PAIN: No c/o pain BED MOBILITY/TRANSFERS Rolling L/R: I Supine-sit: I Sit-supine: I Sit-stand: I Stand-sit: I Bed-Chair: I Chair-bed: I GAIT Assistive Device: No AD Weight bearing: Full Assist: I Distance: 400' Deviation: No complaints THEREX: Patient demonstrates independent completion of resisted UE and LE strengthening program, as per flow sheet. TOILETING: Patient toileted independently STAIRS: Up/down 9x4 and 6x6 using U rail and a step-over pattern independently ASSESSMENT: Patient tolerated session well without complaint. She demonstrates independence with transfers, bed mobility, gait, and stair negoitation at this time. She also demonstrates independence with HEP at this time. PLAN: Discharge from PT, as patient demonstrates independence with all functional mobility at this time. TREATMENT CODE/TIME: 30 minutes; 14103, [id number] (10:00)
[2020-10-24 16:30] VITALS: BP 117/79; PULSE 72; RESP 16; TEMP 36.6; O2SAT 92
[2020-10-24] MEDS: Zolpidem 5 MG TAB PO (20:28)
[2020-10-24] MEDS: MEROPENEM 1 GM in Normal Saline 100 ML IVPB (20:28)
[2020-10-24 23:36] VITALS: BP 92/60; PULSE 65; RESP 18; TEMP 36.4; O2SAT 94
[2020-10-25] MEDS: MEROPENEM 1 GM in Normal Saline 100 ML IVPB ×3 (03:56→20:41)
[2020-10-25] MEDS: Aspirin E.C. 81 MG TABEC PO (07:30)
[2020-10-25] MEDS: Enoxaparin 40 MG/0.4 ML SYR SC (07:30)
[2020-10-25] MEDS: Famotidine 20 MG TAB PO ×2 (07:31→20:41)
[2020-10-25] MEDS: Normal Saline Flush 10 ML SYR IVP ×2 (07:32→20:42)
[2020-10-25 08:23] VITALS: BP 115/77; PULSE 61; RESP 18; TEMP 36.7; O2SAT 96
--- NOTE | 2020-10-25 12:37 | PDOC.CMPRO ---
- If Service Date Differs Date of service: 10/25/20 Time of Service: 12:37 Care Management Progress Note S/O:Shonna was sitting up in bed when CM met with her. She remains pleasant in interaction and engaged easily with CM. Shonna shared that she is becoming frustrated because she does not know what her plan is. She has been told that she needs surgery to remove the large stone in her ureter but does not know when or where it will happen. She is concerned that if she is discharged on as planned, that the infection will return. She has asked to see Dr. Kwok again as he has discussed this with her before. A consultation request was placed by the provider, Dr. Melgar, yesterday. A: Shonna is a 59 year old woman admitted on 10/12/20 with pyelonephritis. She was transitioned to SB-1 on 10/20/20 to complete a course of IV antibiotics. P: Shonna will be discharged home with no new services vs home health nursing for nephrostomy tube care. She will follow up with her community providers and will likely go to a tertiary care facility for surgery to remove the staghorn calculus in her ureter. CM will continue to support Shonna and assess for discharge planning concerns.
--- NOTE | 2020-10-25 13:19 | PGE_ITS ---
Date of Service Date of service: 10/25/20 Time of Service: 13:19 Assessment and Plan Assessment and plan (1) E. coli sepsis: Status: Acute Qualifiers: Sepsis acute organ dysfunction status: without acute organ dysfunction Qualified Code(s): A41.51 - Sepsis due to Escherichia coli [E. coli] (2) Renal calculus, right: Status: Acute Assessment and plan: With the size of her stone (over 3 cm) she certainly will need a percutaneous nephro lithotomy. On the initial correspondence between our hospitalist team and the urologist down at [facility], it appears that a follow-up with Dr. Mcdonnell (who performs the percutaneous nephrolithotomy procedure) was planned for 2 weeks. I do not see where this appointment was followed through however. I will ask my office staff to contact the urology department at [facility] to see how we might facilitate an appointment for this patient. When she is ready for discharge, I would expect that she would benefit from home health services to help with dressing changes and nephrostomy tube care until her subsequent surgery can be arranged. She would also be interested in a prophylactic dose of an antibiotic until her surgery could be accomplished. Based on her initial culture and sensitivity results and her antibiotic allergies, a dose of Macrodantin 50 mg daily would seem reasonable. Subjective Subjective Interval history since last seen: She is feeling much better with no fevers or chills. She is expecting to be discharged later this week. She is interested in learning about follow-up plans. Exam Narrative Exam Narrative: She is in no obvious distress. She does not appear septic or toxic She is awake and alert Objective Last Vital Signs Temp 36.7 C 10/25/20 08:23 Pulse 61 10/25/20 08:23 Resp 18 10/25/20 08:23 BP 115/77 10/25/20 08:23 Pulse Ox 96 10/25/20 08:23
[2020-10-25] MEDS: hydrOXYzine HCL 25 MG TAB PO (14:35)
[2020-10-25] MEDS: LORazepam 0.5 MG TAB PO ×2 (15:08→20:41)
[2020-10-25 16:13] VITALS: BP 102/68; PULSE 66; RESP 16; TEMP 37; O2SAT 94
--- NOTE | 2020-10-25 16:14 | CHAPLAIN ---
Jennifer was talking with Echo Piña, Family Readiness Support Assistant, when I visited briefly this morning. She said she is feeling much better. This afternoon when I returned to visit, she was distraught and said she was beginning to have a migraine headache. She is expecting to be discharged on , and she said she is fearful that this is too soon, and thinking about that brought on the headache.
[2020-10-25 20:20] VITALS: BP 111/71; PULSE 68; RESP 18; TEMP 36.7; O2SAT 97
[2020-10-25] MEDS: Zolpidem 5 MG TAB PO (22:02)
[2020-10-26] MEDS: MEROPENEM 1 GM in Normal Saline 100 ML IVPB ×3 (04:42→19:31)
[2020-10-26 07:05] VITALS: BP 106/73; PULSE 73; RESP 16; TEMP 36.9; O2SAT 97
[2020-10-26 07:35] LABS: HCT 38.1 % (36.0-46.0); HGB 12.3 g/dL (11.2-15.7); MCH 28.9 pg (27.0-33.0); MCHC 32.3 % (32.0-36.0); MCV 89.6 fL (80-95); MPV 9.5 fL (8.0-11.0); Platelet Count 380 10^3/uL (130-400); RBC 4.25 10^6/uL (3.93-5.22); RDW 11.6 % (11.7-14.6); RDW-SD 37.7 fL; WBC 7.06 10^3/uL (4.4-10.8)
[2020-10-26] MEDS: Enoxaparin 40 MG/0.4 ML SYR SC (07:49)
[2020-10-26] MEDS: Famotidine 20 MG TAB PO ×2 (07:49→19:32)
[2020-10-26] MEDS: Aspirin E.C. 81 MG TABEC PO (07:49)
--- NOTE | 2020-10-26 09:03 | INDS_ITS ---
Date of service: 10/26/20 Time of Service: 09:03 PT Notes Visit Reasons: Pyelonephritis Physical Therapy Inpatient Initial Evaluation Date: 10/26/2020 Dates of Service: 10/19/2020 through 10/24/2020 This is a clinical summary of care provided for the duration of dates listed above. No charge was made in the completion of this documentation. Referring Doctor: Kranthi Nava MD PT Orders: PT CONSULT: Extended stay weakness Precautions: Fall. Standard. Activity as tolerated. Nephrostomy tube in place Patient Profile/Admitting Diagnosis: Shonna is a 59-year-old female who presented to the ED on 10/12/2020 with acute onset right flank pain and nausea. Patient is diagnosed with pyelonephritis, renal calculus, appendicitis, hydronephrosis, renal tubular acidosis, and hypokalemia. Patient is status post nephrostomy tube placement at [facility] on 10/12/2020. PMHX: Medical History ADHD Anxiety HTN (hypertension) Migraine Surgical History S/P hysterectomy Social History/Home Situation: Lives with parents in a private home. Independent in all aspects of ADLs with no assistive nor adaptive equipment prior to admission. 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 Equipment Owned/DME: None Subjective: NT. See most recent MANGLE PRESS CATCHER notes. Objective: General Observation: NT. See most recent MANGLE PRESS CATCHER notes. Mental Status: NT. See most recent MANGLE PRESS CATCHER notes. Pain: NT. See most recent MANGLE PRESS CATCHER notes. ROM: Right Upper Extremity: Shoulder Flexion WFL. Shoulder abduction WFL. Elbow flexion WFL. Wrist flexion WFL. Functional opening and closing of hand WFL. Left Upper Extremity: Shoulder Flexion WFL. Shoulder abduction WFL. Elbow flexion WFL. Wrist flexion WFL. Functional opening and closing of hand WFL. Right Lower Extremity: Hip flexion WFL. Hip abduction WFL. Knee flexion WFL. Ankle dorsiflexion WFL. Ankle plantarflexion WFL. Left Lower Extremity: Hip flexion WFL. Hip abduction WFL. Knee flexion WFL. Ankle dorsiflexion WFL. Ankle plantarflexion WFL. Strength: Right Upper Extremity: Shoulder flexors 5/5. Shoulder abductors 5/5. Elbow flexors 5/5. Elbow extensors 5/5. Slurry Worker strong. Left Upper Extremity: Shoulder flexors 5/5. Shoulder abductors 5/5. Elbow flexors 5/5. Elbow extensors 5/5. Slurry Worker strong. Right Lower Extremity: Hip flexors 4/5. Hip abductors 5/5. Knee flexors 5/5. Knee extensors 5/5. Ankle dorsiflexors 5/5. Ankle plantarflexors 5/5. Left Lower Extremity: Hip flexors 4/5. Hip abductors 5/5. Knee flexors 5/5. Knee extensors 5/5. Ankle dorsiflexors 5/5. Ankle plantarflexors 5/5. Bed Mobility/Transfers: Rolling independent Supine to sit independent Sit to supine independent Sit to stand independent Stand to sit independent Bed to reclining chair independent Reclining chair to bed independent Gait: Independent with ambulation using no assistive device up to 400 feet. Stairs: Up and down 9 x 4 stairs and 6 x 6 with unilateral rails with step over step pattern independently Balance: Static Sitting: Normal Dynamic Sitting: Normal Static Standing: Good Dynamic Standing: Good Assessment: Mild scissoring gait resolved. Has 100% mastery of HEP. All goals have been achieved. Patient continues to present with clinical signs and symptoms consistent with current/admitting diagnoses that have resulted to mobility limitations, gait instability, generalized weakness, and overall ADL decline as demonstrated by the following impairment level findings: 1. Decreased strength to B LE major muscle groups 2. Impaired sitting/standing balance 3. Impaired activity tolerance Impairments are continuing to contribute to the following functional limitations: 1. Difficulty with ambulation 2. Increased completion time for mobility ADL performance 3. Increased risk for falls Goals: Goals X1 week 1. Supine-Sit independent MET 2. Sit-Supine independent MET 3. Sit-Stand independent MET 4. Stand-Sit independent with no assistive device MET 5. Bed-Chair independent with no assistive device MET 6. Chair-Bed independent with no assistive device MET 7. Independent gait on level surface with use of no assistive device for at least 500 feet without report of pain nor dyspnea MET 8. Independent stair negotiation while holding onto B rails for at least 10 steps without report of pain nor dyspnea MET 9. Independent with home exercise program MET 10. Good static and dynamic standing balance/tolerance MET DISCHARGE RECOMMENDATIONS: Home when medically cleared by hospitalist/surgeon. TREATMENT CODE/TIME: CA Thank you for the opportunity to participate in the care of this patient. Christiana Anderson PT, DPT, CLT [facility] [place], [place]
--- NOTE | 2020-10-26 09:39 | OT.INNT ---
Date of service: 10/26/20 Time of Service: 08:05 Occupational Therapy Notes 10/26/20 OT consult received and pts chart was reviewed, OT attempted to consult with pt who reports that she is going to have HH services and does not feel that she needs Occupational Therapy services. She is interested in performing her dressing routine. Based on this, OT will go over dressing with pt tomorrow as pt is unable to perform it this morning. Martha Tillman, OTR/[facility]
[2020-10-26] MEDS: Normal Saline Flush 10 ML SYR IVP ×2 (12:00→19:33)
--- NOTE | 2020-10-26 17:08 | PDOC.CMPRO ---
- If Service Date Differs Date of service: 10/26/20 Time of Service: 17:08 Care Management Progress Note S/O:
[2020-10-26 19:29] VITALS: BP 127/84; PULSE 69; RESP 18; TEMP 36.6; O2SAT 98
[2020-10-26] MEDS: LORazepam 0.5 MG TAB PO (19:32)
[2020-10-26] MEDS: Zolpidem 5 MG TAB PO (20:57)
[2020-10-26 23:16] VITALS: BP 109/63; PULSE 67; RESP 17; TEMP 37.1; O2SAT 96
[2020-10-27] MEDS: MEROPENEM 1 GM in Normal Saline 100 ML IVPB ×2 (04:30→12:43)
[2020-10-27 07:21] VITALS: BP 104/74; PULSE 65; RESP 16; TEMP 36.5; O2SAT 95
[2020-10-27] MEDS: Normal Saline Flush 10 ML SYR IVP ×2 (08:57→12:43)
[2020-10-27] MEDS: MODAFINIL 200 MG TAB 400 MG PO (08:57)
[2020-10-27] MEDS: Famotidine 20 MG TAB PO (08:58)
[2020-10-27] MEDS: Aspirin E.C. 81 MG TABEC PO (08:58)
--- NOTE | 2020-10-27 12:35 | PDOC.CMDIS ---
- If Service Date Differs Date of service: 10/27/20 Time of Service: 12:35 LACE Index Scoring Tool - Questions: Length of Stay (in days): 1 Acuity (Admit via E.D.?): Yes E.D. Visits: 1 - Answers: Total Score: 5 Risk of Readmission: Low Risk Care Management Discharge Reason for Hospitalization: Pyelonephritis Discharge Plan: Shonna will be discharged home with new services for home health nursing for nephrostomy tube care. She will follow up with her community providers and will be scheduled to go to a tertiary care facility for surgery to remove the staghorn calculus in her kidney. Shonna will transport via private vehicle with her father. Patient/Family Education Needs: Review of discharge instructions, medications, limitations, activity, follow up care, Ask Me Three Services Needed at Discharge: Home Health Care Services
--- NOTE | 2020-10-27 14:06 | DSE_ITS ---
Date of service: 10/27/20 Time of Service: 14:19 DS: Diagnosis Discharge Diagnosis (1) E. coli sepsis: Status: Acute (2) Renal calculus, right: Status: Acute Discharge Plan Disposition Patient Disposition: HOME W/HOME HEALTH SERVICE Condition: Good Discharge Details Reason For Visit: Pyelonephritis, renal calculus Admit Date/Time: 10/20/20 14:00 Admit Provider: Kranthi Nava Attending Provider: Kranthi Nava Primary Care Provider: [facility] Hospital Course: Patient was hospitalized acutely from October 12, 2020 through October 20, 2020 for E. coli bacteremia secondary to emphysematous right pyelonephritis caused by nephrolithiasis causing obstructive uropathy. E. coli was found to be resistant to quinolones and ampicillin sulbactam but sensitive to cephalosporins. Patient was initially treated with Levaquin in the emergency department but Rocephin and vancomycin were added. Follow-up blood cultures on October 13, [address] scan in addition to showing the pyelonephritis and hydronephrosis on the right showed some suggestion of possible appendicitis. This was read by Cedric emi but then over read by our own radiologist. Surgical consultation was obtained with Dr. Laura Fuentes who felt there was no clinical evidence for appendicitis. Urology consultation was obtained with Dr. Parminder Kwok who recommended IR placement of a right nephrostomy tube. This was accomplished to [facility] interventional radiology service on October 12, 2020. Repeat blood cultures came back no growth in October 13, 2020 at which point Levaquin was discontinued and vancomycin was discontinued on October 14, 2020. She was kept on Rocephin 2 g daily but when she had persistent fever spikes over the weekend of October 15 and October 17, 2019 when she was put on meropenem. 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 Despite the fact that the tube would flush it would not drain at all at which point both urology and interventional radiology were contacted [facility]. Eventually interventional radiology excepted the patient for down the back procedure which was arranged for SaturdayOctober 17, 2020. The right nephrostomy tube was found to be nonfunctional at which point they did a tube exchange. After which her fever spikes defervesced and she was switched back to Rocephin 2 g daily. She was then admitted to swing bed status because of generalized weakness and deconditioning due to her sepsis and pyelonephritis. She received physical therapy services while in acute inpatient. She was progressing but still needed some additional therapy services as well as continuation of parenteral antibiotics and nephrostomy tube care. She will complete her parenteral antibiotics in October 27, 2020. At that point she will need to go on suppr essive antibiotic therapy until she can see tertiary care center urology services to have a nephro lithotomy procedure performed. Recommend she be referred to urology at [facility] as they know her from her nephrostomy tube placement and exchange. Dr Kwok has been in contact with Urology Dept at [facility] and they will arrange f/u for the patient. She will have home health nursing assist with nephrostomy tube. Macrobid 50mg po daily for antibiotic prophylaxis. Dr. Kwok will follow her home health progress and manage any orders. She has not established with a PCP locally as of yet; moved her from [place]. Home Meds and New Rx's Prescriptions: New polyethylene glycol 3350 17 gram Powder In Packet 17 g PO DAILY PRN PRN (Reason: Constipation) Qty: 0 RF: 0 lorazepam 0.5 mg Tablet 0.5 mg PO QID PRN PRN (Reason: Anxiety) Qty: 20 RF: 0 zolpidem 5 mg Tablet 5 mg PO HS PRN PRNQty: 20 RF: 0 nitrofurantoin macrocrystal [Macrodantin] 50 mg capsule 50 mg PO QHS Qty: 30 RF: 0 Continued prochlorperazine maleate 10 MG tablet 10 mg PO Q8H PRN Qty: 20 RF: 1 hydroxyzine HCl 25 MG tablet 25 mg PO Q4H PRN Qty: 60 RF: 2 acetazolamide 250 MG tablet 1 - 2 tab PO BID Qty: 120 RF: 3 methylphenidate HCl [Ritalin] 20 MG tablet 20 mg PO TID RF: 0 famotidine [Pepcid] 20 mg tablet 20 mg PO BID Qty: 28 RF: 0 aspirin 81 mg tablet,delayed release (DR/EC) 81 mg PO DAILY Qty: 30 RF: 0 propranolol 80 mg Capsule,Extended Release 24 Hr 160 mg PO DAILY RF: 0 Nurtec ODT 75 mg Tablet,Disintegrating 75 mg PO ONCE PRNRF: 0 modafinil [Provigil] 200 mg Tablet 200 mg PO QAM RF: 0 ibuprofen 800 mg Tablet 800 mg PO PRN PRNRF: 0 acetaminophen [Tylenol Extra Strength] 500 mg Tablet 1,000 mg PO PRN PRNRF: 0 cyclobenzaprine 10 mg tablet 10 mg PO TID PRN (Reason: muscle spasm) Qty: 30 RF: 0 Discharge Instructions Instructions: Percutaneous Nephrolithotomy (DC) Stand Alone Forms: Nursing Discharge Form Referrals: Daryl Mcdonnell MD [ NON-[facility] STAFF PHYSICIAN] - (Dr. Mcdonnell is on vacation this week, he will review your records and [facility] will call you with a follow up appointment. [facility] urology dept number is ) Chinmay Borden [ [facility] STAFF PHYSICIAN] - ([facility] [place] [facility] would like you to go to [facility] in one week for inpt admission follow up. [facility] [place] [facility] will be calling you to set up with a PCP. ) Activity:: Activity as Tolerated Equipment/Supplies:: No Equipment Needed Diet:: Low Sodium Discharge Orders Discharge Orders: Discharge Order (Routine); Ordered 10/27/20 Ordered By: Rylan Melgar DS: Summary Time Spent with Patient providing and/or coordinating discharge services: Greater than 30 minutes Status at Discharge Functional status at discharge: independent ambulation Overall status at discharge: patient is progressing back to baseline Mental Status: mental status grossly normal Speech and Movement: speech and movement normal Mood: congruent mood Affect: normal affect Exam Const General: cooperative and no acute distress Nutritional Appearance: obese Orientation: alert and oriented x3 Resp Effort & Inspection: normal respiratory effort Auscultation: clear to auscultation bilaterally Cardio Rate: regular rate Rhythm: regular rhythm Heart Sounds: S1 normal and S2 normal GI Inspection: other (R sided nephrostomy tube in place) Palpation: soft and nontender Skin General skin exam: no rashes or lesions noted Extrem General: no pedal edema and no calf tenderness Psych Appearance: grossly normal Mental Status: mental status grossly normal Speech and Movement: speech and movement normal Mood: congruent mood Affect: normal affect DS: Data Vitals/I&O Vitals and I&O: Vital Signs Temperature 36.5 C 10/27/20 07:21 Temperature Source Tympanic 10/27/20 07:21 Pulse 65 10/27/20 07:21 Pulse Rhythm Regular 10/27/20 08:30 Respiratory Rate 16 10/27/20 07:21 Respiratory Effort Non-Labored 10/27/20 08:30 Respiratory Depth Normal 10/27/20 08:30 Respiratory Pattern Normal 10/27/20 08:30 Blood Pressure 104/74 10/27/20 07:21 Pulse Oximetry 95 10/27/20 07:21 Oxygen Delivery Method Room Air 10/27/20 07:21 Oxygen Flow Rate 0 10/27/20 07:21 Pain Level 0 10/27/20 07:21 Comment 10/22/20 14:58 Intake & Output 10/26/20 10/27/20 10/27/20 23:59 11:59 23:59 Intake Total 620 / 970 100 / 280 180 / 280 Output Total 450 / 450 250 / 250 Balance 170 / 520 -150 / 30 180 / 30 Intake: IV 200 / 310 100 / 100 Oral 420 / 660 180 / 180 Output: Drainage 150 / 150 50 / 50 RT FLANK 150 / 150 50 / 50 Urine 300 / 300 200 / 200 Other: Urine Color Yellow Yellow Urine Appearance Clear Clear Urine Odor None Comment Pt reporting she has voided x3 today throughout shift. Voiding Methods [facility] History ADHD Anxiety HTN (hypertension) Migraine Surgical History S/P hysterectomy Social History Smoking/Tobacco Use Status: Never Smoking risk assessment performed?: Yes Alcohol Intake: current Alcohol Intake frequency: a few times a month Drug use: Never Substance use type: does not use Do you feel safe at home: Yes Do you feel safe in your relationship?: Yes
--- NOTE | 2020-10-27 14:36 | PDOC.HHF2F ---
Home Health Certification Home Health Certification: 1. Encounter Date and Reason I certify that Jennifer Ignacio was seen by Rylan Melgar MD on 10/27/20 and that I had a [id number] encounter with this patient that meets the physician face to face encounter requirements. 2. Clinical Findings Supporting Skilled Need and Homebound Status I certify that home health services are medically necessary, include either intermittent detention and/or physical/speech therapy, and that this patient is homebound in that absences from the home require considerable and taxing effort and are infrequent or of short duration, or are attributable to the need to receive medical care. [X] (a) Attached documentation from encounter provides clinical findings supporting skilled need and homebound status (including what assistance patient requires to leave the home). The encounter with the patient was in whole, or in part, for the following medical condition, which is the primary reason for home health care: Pyelonephritis, renal calculus Residential: Manage right sided nephrostomy tube. Assist in securing and covering the tube for showering. Physical Therapy: Speech Therapy: Homebound: 3. Certification and Authentication I certify that I composed the above information based on my clinical judgement relating to this patient's medical condition and, if applicable, clinical findings communicated to me by the NPP or inpatient physician who performed the Home Health Referral. All further orders will be obtained through Parminder Kwok MD, Urology Community Based Physician)
[2020-10-27 14:50] VITALS: BP 127/80; PULSE 66; RESP 14; TEMP 36.8; O2SAT 100
[2020-10-27] MEDS: Bacitracin 1 PACKET (15:20)
== END 2020-10-27 15:36 | disposition home health service (06) | DRG 871 ==
PROVIDERS: Internal Medicine; Admitting Provider Internal Medicine; Visit Provider Internal Medicine
DX: A41.51 Sepsis due to Escherichia coli [E. coli]; N17.0 Acute kidney failure with tubular necrosis; N13.6 Pyonephrosis; I10 Essential (primary) hypertension; B96.20 Unspecified Escherichia coli [E. coli] as the cause of diseases classified elsewhere; F90.9 Attention-deficit hyperactivity disorder, unspecified type; F41.9 Anxiety disorder, unspecified; G43.909 Migraine, unspecified, not intractable, without status migrainosus
CPT/HCPCS: 36415; 80048; 84145; 85027; 87635; 97110; 97161; 97530; 99304; 99316; J1650; 85025; 86140

== ENCOUNTER 2020-11-11 19:36 | Outpatient (REF) | payer MEDICAID, SELFPAY ==
[2020-11-11 16:02] LABS: Abs Immature Grans 0.02 10^3/uL (0.0-0.06); Absolute Basophil Count 0.06 10^3/uL (0.0-0.2); Absolute Eosinophil Count 0.46 10^3/uL (0.0-0.7); Absolute Lymphocyte Count 2.35 10^3/uL (1.2-3.4); Absolute Monocyte Count 0.56 10^3/uL (0.1-0.8); Absolute Neutrophil Count 2.55 10^3/uL (1.2-6.7); Eosinophils % 7.7; HCT 39.7 % (36.0-46.0); HGB 13.2 g/dL (11.2-15.7); Immature Grans % 0.3; Lymphocytes % 39.2; MCH 29.5 pg (27.0-33.0); MCHC 33.2 % (32.0-36.0); MCV 88.8 fL (80-95); MPV 10.8 fL (8.0-11.0); Monocytes % 9.3; Neutrophils % 42.5; Nucleated RBC 0 %; Platelet Count 326 10^3/uL (130-400); RBC 4.47 10^6/uL (3.93-5.22); RDW 12.3 % (11.7-14.6); RDW-SD 40.1 fL
[2020-11-11 16:12] LABS: Anion Gap 10.4 mmol/L (3-11); BUN 12 mg/dL (7-18); CO2 25.6 mmol/L (21.0-32.0); CREATININE 0.7 mg/dL (0.55-1.02); Chloride 104 mmol/L (98-107); Glucose 129 mg/dL (74-106); Potassium 4.2 mmol/L (3.5-5.1); Sodium 140 mmol/L (136-145)
[2020-11-11 17:37] LABS: Bilirubin Negative (Negative); Blood Large (Negative); Clarity Cloudy (Clear); Glucose Negative (Negative); Ketones Negative (Negative); Leukocyte Esterase Large (Negative); Nitrite Negative (Negative); Specific Gravity 1.025 (1.005-1.025); Urobilinogen 0.2 EU/dL (Up TO 0.2); pH 5.5 (5-8)
[2020-11-11 17:43] LABS: WBC >50 HPF (0-5)
[2020-11-11 17:45] LABS: Bacteria Many HPF (Negative); C & S Indicated? C&S Done As Ordered; Crystals Many Amorphous HPF (Negative); Mucus Negative (Negative)
== END 2020-11-11 19:37 | disposition home or self-care (01) ==
LOC: NCHCN 19:36
PROVIDERS: Visit Provider Urology
DX: N20.0 Calculus of kidney (principal)
CPT/HCPCS: 80048; 81003; 81015; 85025; 87086

== ENCOUNTER 2020-11-24 17:06 | Outpatient (REF) | payer MEDICAID, SELFPAY ==
[2020-11-24 18:20] LABS: Bilirubin Negative (Negative); Blood Moderate (Negative); Clarity Cloudy (Clear); Glucose Negative (Negative); Ketones Negative (Negative); Leukocyte Esterase Large (Negative); Nitrite Positive (Negative); Specific Gravity >= 1.030 (1.005-1.025); Urobilinogen 0.2 EU/dL (Up TO 0.2); pH 6.5 (5-8)
[2020-11-24 18:23] LABS: Bilirubin Negative (Negative); Blood Small (Negative); Clarity Cloudy (Clear); Glucose Negative (Negative); Ketones Negative (Negative); Leukocyte Esterase Moderate (Negative); Nitrite Negative (Negative); Urobilinogen 0.2 EU/dL (Up TO 0.2)
[2020-11-24 18:38] LABS: Bacteria Many HPF (Negative); C & S Indicated? C&S Done As Ordered; Casts Negative LPF (Negative); Crystals Negative HPF (Negative); Epithelial Cells Rare HPF (Negative); Mucus Negative (Negative); WBC >50 HPF (0-5)
[2020-11-24 18:39] LABS: Bacteria Moderate HPF (Negative); C & S Indicated? C&S Done As Ordered; Casts Negative LPF (Negative); Crystals Negative HPF (Negative); Epithelial Cells Few HPF (Negative); Mucus Negative (Negative); WBC 20-50 HPF (0-5)
== END 2020-11-24 17:07 | disposition home or self-care (01) ==
LOC: LBN 17:06
PROVIDERS: Visit Provider Urology
DX: N20.0 Calculus of kidney (principal)
CPT/HCPCS: 87077; 81003; 81015; 87086; 87186

== ENCOUNTER 2021-01-17 14:46 | Outpatient (REF) | payer MEDICAID, SELFPAY | END 2021-01-17 14:47 | disposition home or self-care (01) | LOC: LBN 14:46 | PROVIDERS: Visit Provider Urology | DX: N20.0 Calculus of kidney (principal); R82.998 Other abnormal findings in urine | CPT/HCPCS: 87086 ==

== ENCOUNTER 2021-01-23 08:56 | Emergency (ER) | payer OTHER, MEDICAID, SELFPAY ==
[2021-01-23] VITALS (31 sets, daily range): BP systolic 141–159; BP diastolic 72–87; PULSE 60–71; RESP 10–24; TEMP 36.6; O2SAT 92–99
--- NOTE | 2021-01-23 08:45 | RT.EKG_ITS ---
APPROVED REPORT Exam: Resting ECG Reason for Exam: chest pain Patient Location: E HR:64 bpm ECG Measurements Heart Rate 64 AXIS MS 169 P 53 QRSd 107 QRS -50 QT 422 T [id number] QTc 436 Conclusion Sinus rhythm...normal P axis, V-rate 60- 99 LAD, consider left anterior fascicular block...axis(240,-40), S>R II III aVF Nonspecific T abnormalities, inferior leads...T <-0.10mV, II III aVF no STEMI, non-diagnostic EKG
--- NOTE | 2021-01-23 09:00 | DI.CT_ITS ---
Exam(s) CT CHEST PE CTA EXAM: CT CHEST PE CTA CLINICAL HISTORY: pleuritic CP, pain radiates in to the back. TECHNIQUE: Imaging Protocol: Axial CT angiography was performed with multi-slice acquisition and mu lti-planar and/or 3D reconstructions. CONTRAST MATERIAL: Intravenous: Omnipaque 350 Contrast volume:100 ml COMPARISON: CT CHEST FOR PULMONARY EMBOLUS from 09/30/2016 CT CHEST FOR PULMONARY EMBOLUS from 09/30/2016 CR,XR XR CHEST 2V PA LATERAL from 04/02/2019 CR,XR XR CHEST 2V PA LATERAL from 04/02/2019 FINDINGS: Pulmonary Arteries: No evidence of filling defect to suggest pulmonary emboli. Tracheobronchial tree: Patent where visualized. Mediastinum and Jordyn: No dominant adenopathy or fluid collection. Pulmonary parenchyma: Expiratory changes. No consolidation or dominant measurable mass. Pleura: No effusion or pneumothorax. Heart: The heart is not dilated. No coronary artery calcifications are seen. Aorta: Thoracic aorta non-dilated. No aneurysm. No dissection. No visible atherosclerotic changes. Upper abdomen: Stomach distended with fluid. Fluid in the lower esophagus could indicate reflux. S mall hiatal hernia.. Bones: Unremarkable for age. IMPRESSION: No evidence of pulmonary embolism or aortic dissection.. Small hiatal hernia. Fluid in the esophagus could indicate gastroesophageal reflux. RADIATION DOSE DELIVERED: Total DLP DATA REPOSITORY: All CT scans at this facility are submitted to the National Radiology Data Registry (NRDR) Dose Index Registry (DIR) with the [employer] (ACR). RADIATION OPTIMIZATION: All CT scans at this facility use at least one of these dose optimization te chniques: automated exposure control; mA and/or kV adjustment per patient size (includes targeted exa ms where dose is matched to clinical indication); or iterative reconstruction.
--- NOTE | 2021-01-23 09:02 | W.ED.GENAD ---
Discharge Plan Disposition Patient Disposition: HOME Condition: Stable Discharge Details Clinical Impression: Chest pain, Hydronephrosis, Transaminitis Primary Care Provider: Unknown,Unknown ED Provider: Isi Chacko Home Meds and New Rx's Prescriptions: New omeprazole 40 mg capsule,delayed release(DR/EC) 40 mg PO DAILY Qty: 20 RF: 0 Continued propranolol 80 mg Capsule,Extended Release 24 Hr 160 mg PO DAILY RF: 0 ibuprofen 800 mg Tablet 800 mg PO PRN PRNRF: 0 acetaminophen [Tylenol Extra Strength] 500 mg Tablet 1,000 mg PO PRN PRNRF: 0 polyethylene glycol 3350 17 gram Powder In Packet 17 g PO DAILY PRN PRN (Reason: Constipation) Qty: 0 RF: 0 methylphenidate HCl [Ritalin] 20 mg tablet 20 mg PO TID Qty: 90 RF: 0 modafinil 200 mg tablet 200 mg PO DAILY Qty: 30 RF: 0 Discontinued fluconazole [Diflucan] 200 mg tablet 200 mg PO DAILY Qty: 5 RF: 0 Discharge Instructions Instructions: Chest Pain (ED) Additional Instructions: Your chest pain improved with acid reflux. I am concerned that the large meal that you ate prior to going to bed may have contributed to your discomfort. I would like to have you take an acid reflux medication, a prescription for omeprazole has been sent to your pharmacy of choice. If he has increased chest pain, shortness of breath, difficulty breathing or other new/worsening symptom I would like for you to seek care urgently once again. Your liver enzymes were elevated today. Hepatitis panel as well as tick and Lyme panel have been sent. It will take a few days to get these results back. We will contact you with any positive results. I am concerned that the liver enzymes are elevated because of the fluconazole. Dr. Kwok advise holding on your fluconazole and not beginning any other medications at this time. Urinalysis with culture has been collected today, will contact you with any positive results. Please encourage hydration. Your ultrasound showed some stones in your gallbladder but no emergent process at this time. You also had some swelling around your kidney which Dr. Kwok believes is associated with recent stent removal. I would like for you to follow-up with primary care in 1 week. Referral has been sent to local primary care. If you develop fever/chills, increased pain, inability stay hydrated, shortness of breath, increased chest pain, skin discoloration or other new/worsening symptoms please seek care urgently once again. Stand Alone Forms: Work Release Discharge Data Discharge Date/Time-TO BE ENTERED AT DEPARTURE: 01/23/21 15:09 Medical Decision Making Patient is a pleasant 60-year-old female brought in via EMS with chief complaint of chest pain. She reports the chest pain woke her from sleep at 130 this morning. States that pain is both a pressure and a sharp pain. Reports the pain began to radiate into her back. No tearing sensation. Denies any radiation to neck, limb or abdomen. States that she has had some nausea but denies any vomiting. No change in bowel or bladder habits. No personal history of cardiac disease. Maternal grandfather had an [place] at 70, brother has a history of atrial fibrillation. Patient reports that she did have a large meal at 11 PM and was concerned that this may have been what caused her discomfort. States she has had issues with acid reflux in the past. Reports that she took Tums with no relief of her discomfort. Past medical history is pertinent for hypertension, anxiety, pyelonephritis. Patient reports she did have a renal stent removed this past Saturday. Is on fluconazole. She denies any flank pain, fever/chills. On exam, patient appears anxious and uncomfortable. Vital signs are stable. Lungs are clear, normal cardiac exam. Abdominal exam is benign. 2+ distal pulses in all of her extremities. Calves are soft and nontender. No CVA tenderness. EKG was obtained and reviewed by Dr. Dickinson. Patient any sinus rhythm with a rate of 64. No acute ischemic changes are appreciated. Concern for potential ACS. Also consider dissection with the pain radiating into the back as well as pulmonary embolism with a pleuritic quality. She is not having shortness of breath but does have breathing change because of the discomfort when she takes a deep breath in. Her vital signs are stable. Will obtain a CT for PE protocol. I did clarify with radiologist to make sure that this also allow for good evaluation of the aorta. She does not have have any evidence of endorgan damage at this time. Perfusing all extremities well. Neurologically clear and no abdominal pain. Also considered potential GI source. Will treat patient's discomfort with nitroglycerin sublingual. Will give Zofran for nausea. Reevaluated the patient. No change in her discomfort after the sublingual nitro. Patient actually received a dose of nitro from EMS as well with no change in her symptoms. Her pressures are remaining stable. As she is not having any change of this, I will move forward with trying a GI cocktail as well as Protonix to see if this helps the discomfort. If this is unsuccessful, will give morphine for pain. Contacted by radiologist. She advises no evidence of suggest pulmonary embolism, normal aorta. However, she is concerned patient does have some fluid in her esophagus as well as a full stomach. This does correlate more with GI source of her discomfort. Labs reviewed. No leukocytosis. Stable H&H. CMP concerning for transaminitis with an AST of 325, ALT of 256, alk phos of 138. Her T bili is normal. Will add on a lipase. Initial troponin within normal limits. Discussed these findings with the patient. Patient reports her brother from pancreatic cancer. She denies any smoking or alcohol use but states that her brother did both. She also reports that her ex- had but that it was not active. We will add on acute hepatitis panel. Reevaluated her abdomen and she does have some discomfort in the right upper quadrant. Will obtain an ultrasound to evaluate for any potential gallbladder disease or liver abnormality Contacted by the radiologist who advised that they note gallstones sludge and mild dilatation of the common bile duct at 7 mm but no evidence suggest acute cholecystitis. Patient does have some right-sided hydronephrosis but radiologist believes this is likely associated with her recent infection and surgical intervention does not see acute pathology at this time. Patient is feeling more anxious. Will give 1 mg of Ativan. I have added on a tick and Lyme panel as well. Urinalysis was concerning for some yeast which she is currently being treated for. Patient has no elevation of her bilirubin in the urine. Consulted with Dr. Kwok regarding the mild hydronephrosis as well UA findings. He advised that the hydro is expected. Does not feel that she need change in management at this time. Advised UA go to culture which it has reflexed to. Patient continues to be asymptomatic, feeling much improved. Her repeat troponin remains less than 0.02. Heart score 2. rReviewed patient's med list again. Patient has been on fluconazole for her UTI. Questioning now this may actually be what is Causing her transaminitis. Consulted again with Dr. Kowk. He advised that the source of the UTI, being the foreign body of the stone or the stent, have been removed and that we can completely stop fluconazole at this time. He agrees that this may be the source of her elevated liver enzymes. I discussed the findings with the patient. Again, it seems that pain in her chest, prompting her to come in today, is likely associated with acid reflux from her large meal. We will have the patient use omeprazole. Encourage water intake. Advised that she try to eat earlier in the evening and not right before laying down for bed. In regard to the transaminitis, her Lyme panel as well hepatitis panel are pending. This may be associated with the fluconazole and she will stop this as was indicated by Dr. Kwok. I advised that she abstain from any acetaminophen or alcohol. These instructions were hand written on her discharge paperwork. Strict return precautions were discussed. I encouraged her to follow-up within this week for reevaluation with her primary care. I would like for her to have her liver enzymes rechecked. Urine culture pending. All of her questions and concerns were addressed and she is in agreement this plan. Patient does not have a local primary care. I have asked care management to help arrange for close follow-up. HPI General Mode of arrival: EMS. Date/Time Provider Initiated Documentation: 01/23/21 09:01. Limitations to Documentation: no limitations. Information obtained by: patient, EMS, RN notes reviewed and old records reviewed. History of Present Illness 60 year old F presents to the emergency department with the chief complaint of chest pain, described as moderate, with intensity rated at 7. Quality is described as sharp and other (pressure), and is localized to the chest. Patient reports radiation to back. Patient started experiencing this hour(s) (0130) and it has been constant. No relieving factors improve symptom(s), No exacerbating factors reported . Patient notes chest pain, loss of appetite and nausea/vomiting (nausea, no vomiting); denies cough, fever/chills, shortness of breath and syncope. Patient did receive the following treatments prior to arrival, Aspirin Related Data Home Medications Medication Instructions Recorded Confirmed acetaminophen [Tylenol Extra 1,000 mg PO PRN PRN 03/25/19 01/23/21 Strength] ibuprofen 800 mg PO PRN PRN 03/25/19 01/23/21 propranolol 160 mg PO DAILY 10/12/20 01/23/21 methylphenidate HCl [Ritalin] 20 mg PO TID #90 tab 10/27/20 01/23/21 modafinil 200 mg PO DAILY #30 tab 10/27/20 01/23/21 polyethylene glycol 3350 17 g PO DAILY PRN PRN #0 ea 10/27/20 01/23/21 omeprazole 40 mg PO DAILY #20 cap 01/23/21 Previous Rx's Medication Instructions Recorded methylphenidate HCl [Ritalin] 20 mg PO TID #90 tab 10/27/20 modafinil 200 mg PO DAILY #30 tab 10/27/20 polyethylene glycol 3350 17 g PO DAILY PRN PRN #0 ea 10/27/20 omeprazole 40 mg PO DAILY #20 cap 01/23/21 Allergies Allergy/AdvReac Type Severity Reaction Status Date / Time Penicillins Allergy Severe Hives Unverified 01/23/21 09:04 acetaminophen [From Percocet] AdvReac Intermediate Headache Verified 01/23/21 09:04 oxycodone [From Percocet] AdvReac Intermediate Headache Verified 01/23/21 09:04 General TEDDY: 3 Review of Systems Constitutional Constitutional: Reports as per HPI, Denies chills, Denies fever(s), Denies headache(s) and Denies lethargy ENT Ears, Nose, Mouth, and Throat: Denies dizziness and Denies headache(s) Cardiovascular Cardiovascular: Reports as per HPI, Reports chest pain, Reports chest pain at rest, Denies pedal edema, Denies leg edema, Denies lightheadedness, Denies radiating jaw, neck or arm pain, Denies dyspnea and Denies dyspnea on exertion Respiratory Respiratory: Reports as per HPI, Denies chest congestion, Denies cough, Reports pain on inspiration, Denies dyspnea and Denies dyspnea on exertion Gastrointestinal Gastrointestinal: Reports as per HPI, Denies abdominal pain, Denies change in bowel habits, Reports nausea and Denies vomiting Musculoskeletal Musculoskeletal: Reports as per HPI and Reports back pain Integumentary/Breasts Skin/Breast: Reports as per HPI and Denies rash Neurologic Neurologic: Reports as per HPI, Denies dizziness and Denies headache(s) [facility] Active Problem List Discharge planning issues (Acute) Hypomagnesemia (Acute) E. coli sepsis (Acute) Discharge planning issues (Acute) DVT prophylaxis (Acute) Gram-negative bacteremia (Acute) Hydronephrosis (Acute) Abnormal CT scan, gastrointestinal tract (Acute) Renal calculus, right (Acute) Pyelonephritis, acute (Acute) Chest pain (Acute) Anxiety (Chronic) ADHD (Chronic) Migraine (Chronic) HTN (hypertension) (Chronic) Surgical History S/P hysterectomy Social History Smoking/Tobacco Use Status: Never Smoking risk assessment performed?: Yes Alcohol Intake: current Alcohol Intake frequency: a few times a month Drug use: Never Substance use type: does not use Do you feel safe at home: Yes Do you feel safe in your relationship?: Yes Exam Const General: cooperative, healthy appearing, uncomfortable, no acute distress, well developed and anxious Nutritional Appearance: well nourished and overweight Orientation: alert, awake and oriented x3 HENMT Head: normal to inspection Ears: hearing grossly normal bilaterally Mouth: moist mucous membranes Neck Neck: normal visual inspection Carotids: normal carotid upstroke Chest Chest: normal inspection of the chest, normal palpation of entire chest wall and no crepitus Resp Effort & Inspection: normal respiratory effort, able to speak in complete sentences and no respiratory distress Auscultation: clear to auscultation bilaterally, no rales, no rhonchi and no wheezes Cardio Rate: regular rate Rhythm: regular rhythm Heart Sounds: S1 normal and S2 normal GI Inspection: normal to inspection, no edema and non-distended Palpation: soft, no hepatosplenomegaly, not firm, no guarding, not rigid and nontender Auscultation: normal bowel sounds Back/Spine/Pelvis Back: no CVA tenderness Thoracic/Lumbar Spine: thoracic and lumbar spine normal to inspection Skin General skin exam: no rashes or lesions noted Trauma: no lacerations or abrasions Neuro General: patient alert, patient awake and patient oriented x3 Cognition: normal cognition Speech: speech normal Extrem General: normal to inspection, capillary refill normal, no pedal edema, no calf tenderness and other (2+ distal pulses in all extremities) Psych Appearance: grossly normal and well kempt Mental Status: mental status grossly normal Speech and Movement: speech and movement normal
[2021-01-23] MEDS: nitroGLYcerin 0.4 MG TAB SL (09:22)
[2021-01-23] MEDS: Ondansetron 4 MG/2 ML VIAL IVP (09:22)
[2021-01-23 09:34] LABS: Abs Immature Grans 0.02 10^3/uL (0.0-0.06); Absolute Basophil Count 0.05 10^3/uL (0.0-0.2); Absolute Lymphocyte Count 1.36 10^3/uL (1.2-3.4); Absolute Monocyte Count 0.37 10^3/uL (0.1-0.8); Absolute Neutrophil Count 5.36 10^3/uL (1.2-6.7); Basophils % 0.7; Eosinophils % 1.4; HCT 36.9 % (36.0-46.0); HGB 11.9 g/dL (11.2-15.7); Immature Grans % 0.3; Lymphocytes % 18.7; MCH 29.1 pg (27.0-33.0); MCHC 32.2 % (32.0-36.0); MCV 90.2 fL (80-95); MPV 9.4 fL (8.0-11.0); Monocytes % 5.1; Neutrophils % 73.8; Nucleated RBC 0 %; Platelet Count 345 10^3/uL (130-400); RBC 4.09 10^6/uL (3.93-5.22); RDW 12.2 % (11.7-14.6); RDW-SD 40.6 fL; WBC 7.26 10^3/uL (4.4-10.8)
[2021-01-23] MEDS: Pantoprazole 40 MG VIAL IVP (09:38)
[2021-01-23] MEDS: Normal Saline Flush 10 ML SYR IVP (09:41)
[2021-01-23 09:58] LABS: ALT 266 U/L (14-59); AST 355 U/L (15-37); Albumin 3.6 g/dL (3.4-5.0); Alkaline Phosphatase 138 U/L (46-116); BUN 19 mg/dL (7-18); CREATININE 0.6 mg/dL (0.55-1.02); Calcium 9.5 mg/dL (8.5-10.1); Chloride 102 mmol/L (98-107); Glucose 159 mg/dL (74-106); Magnesium 1.7 mg/dL (1.8-2.4); Potassium 3.8 mmol/L (3.5-5.1); Sodium 140 mmol/L (136-145); Total Protein 8.2 g/dL (6.4-8.2)
[2021-01-23] MEDS: Normal Saline - Diluent 50 ML VIAL IV (09:58)
[2021-01-23] MEDS: Omnipaque 350 MG/ML 100 ML BTL IJ (09:58)
[2021-01-23 10:03] LABS: Troponin I < 0.05 ng/mL (<0.06)
--- NOTE | 2021-01-23 10:15 | DI.US_ITS ---
Exam(s) US ABDOMEN LIMITED EXAM: US ABDOMEN LIMITED CLINICAL HISTORY: RUQ pain, transaminitis TECHNIQUE: Ultrasound abdomen performed using standard protocol. COMPARISON: CT CT ABDOMEN PELVIS W from 10/15/[address] ABDOMEN PELVIS W from 10/15/[address] CHEST PE CTA from 01/23/[address] CHEST PE CTA from 01/23/2021 FINDINGS: LIVER: Mildly enlarged. Mildly increased echogenicity. No focal liver lesions are seen.. GALLBLADDER: Multiple mobile stones. Sludge. No evidence of wall thickening. No pericholecystic flui d identified. BELLE'S SIGN: Negative. BILIARY SYSTEM: Mildly dilated common bile duct at 7 millimeters. No stone is visible. RIGHT KIDNEY: Normal size. No evidence of renal calculi. Mild right hydronephrosis. No suspicious re nal mass. No cyst identified. PANCREAS: Normal where visualized. ABDOMINAL AORTA AND IVC: Visualized portions normal caliber. ASCITES: None seen. IMPRESSION: Cholelithiasis and gallbladder sludge. No evidence of acute cholecystitis. Mildly dilated common bi le duct. Mild right hydronephrosis.. Findings called to Isi Chacko of the emergency department 11 20am DATA REPOSITORY:
[2021-01-23 10:35] LABS: Lipase 87 U/L (73-393)
[2021-01-23 10:47] LABS: Bilirubin Negative (Negative); Blood Trace-intact (Negative); Clarity Sl Cloudy (Clear); Glucose Negative (Negative); Ketones Negative (Negative); Leukocyte Esterase Moderate (Negative); Nitrite Negative (Negative); Specific Gravity 1.015 (1.005-1.025); Urobilinogen 0.2 EU/dL (Up TO 0.2); pH 8.5 (5-8)
[2021-01-23 10:58] LABS: Bacteria Few HPF (Negative); C & S Indicated? Yes; Casts Negative LPF (Negative); Crystals Few Amorphous HPF (Negative); Epithelial Cells Few HPF (Negative); Mucus Negative (Negative); Other Cells Few Yeast (Negative); RBC 0-2 HPF (0-2); WBC 20-50 HPF (0-5)
[2021-01-23] MEDS: LORazepam 2 MG/ML VIAL 1 MG IVP (11:42)
[2021-01-23 12:58] LABS: Troponin I < 0.05 ng/mL (<0.06)
[2021-01-24 10:41] LABS: Hepatitis A Antibody IgM Negative (Negative); Hepatitis B Core Antibody Negative (Negative); Hepatitis B surface Ag Negative (Negative); Hepatitis C Ab w Rflx HCV PCR Negative (Negative)
[2021-01-24 11:28] LABS: Lyme Ab w Rflx to Lyme Confirm Negative (Negative)
[2021-01-25 06:15] LABS: Anaplasma phagocytophilum Negative (Negative); B. miyamotoi PCR Negative (Negative); Babesia divergens/MO-1 Negative (Negative); Babesia duncani Negative (Negative); Babesia microti Negative (Negative); Ehrlichia chaffeensis Negative (Negative); Ehrlichia ewingii/canis Negative (Negative); Ehrlichia muris eauclairensis Negative (Negative)
== END 2021-01-23 15:09 | disposition home or self-care (01) ==
LOC: ER 15:28
PROVIDERS: Emergency Provider Physician Assistant
DX: R07.9 Chest pain, unspecified (principal); N13.30 Unspecified hydronephrosis; R74.01 Elevation of levels of liver transaminase levels
CPT/HCPCS: 36415; 71275; 80053; 83690; 86704; 86709; 86803; 87340; 87798; 93005; 96374; 96375; 99285; 76705; 81003; 81015; 83735; 84484; 85025; 86618; 87086; 93010; 99284; J2060; J2405; J3490

== ENCOUNTER 2022-09-20 01:23 | Outpatient (CLI) | payer OTHER, SELFPAY ==
--- NOTE | 2022-09-20 | DI.MAMMO_ITS ---
Exam(s) MAMMO SCREENING EXAM: MAMMO SCREENING CLINICAL HISTORY: SCREENING, Z12.39 [id number] TECHNIQUE: Bilateral full field digital CC and MLO mammographic images were obtained with 3D tomosyn thesis and utilizing computer aided detection (CAD). COMPARISON: Available for comparison. FINDINGS: Masses/Architectural Distortion: There is a 8 mm nodule in the upper left breast which is more promin ent compared to the prior examinations. Microcalcifications: No suspicious pleomorphic-type are seen. Skin Thickening/Nipple Retraction: None. IMPRESSION: 1. Slight increase in size of a nodule in the upper left breast on the MLO view. 2. This area should be further evaluated with a spot compression view. Limited left breast ultrasoun d may be indicated at that time. BI-RADS Category 0 - Assessment Incomplete: Need additional imaging evaluation Breast Density - Category B - Scattered areas of fibroglandular density Breast density category C or D implies that the patient has dense breast tissue. Dense breast tissue is very common and is not abnormal but dense breast tissue can make it harder to find cancer on a ma mmogram. Also, dense breast tissue may increase their breast cancer risk. This information about the result of the mammogram report was provided to the patient to raise their awareness. Use this report when you speak with the patient about their risks for breast cancer, which includes their family hist ory. At that time, you may recommend for more screening tests (Ultrasound or MRI) as they might be us eful based on their risk. A negative radiographic report should not delay biopsy if a dominant or clinically suspicious mass is present. Up to ten percent of cancers are not identified on mammography. A negative report may reinforce clinical impression. Adenosis and dense breasts may obscure an underlying neoplasm. False positive reports average 6 to 10%. Patient will receive a letter notifying them of these results.
== END 2022-09-20 01:43 ==
PROVIDERS: Visit Provider Physician Assistant
DX: Z12.31 Encounter for screening mammogram for malignant neoplasm of breast (principal)
CPT/HCPCS: 77063; 77067

== ENCOUNTER 2022-09-24 03:16 | Outpatient (CLI) | payer OTHER, SELFPAY ==
--- NOTE | 2022-09-24 | DI.MAMMO_ITS ---
Exam(s) MG MAMMO SCREEN CALL BACK UNI US BREAST LT COMPLETE EXAM: MG MAMMO SCREEN CALL BACK UNI and U/S breast LT limited CLINICAL HISTORY: F/U MAMMO, R92.8,SLIGHT INCREASE IN SIZE OF NODULE,[id number]. TECHNIQUE: Craniocaudal and mediolateral oblique Full Field Digital Mammography views of the left br east with Computer Aided Diagnosis followed by Tomosynthesis and left breast ultrasound. COMPARISON: Comparison is made with prior examinations. FINDINGS: Mammography/Tomosynthesis: Masses/Architectural Distortion: The well-circumscribed nodule has a similar appearance compared to t he prior examinations. No areas of architectural distortion. Microcalcifictions: No suspicious pleomorphic-type are seen. Skin Thickening/Nipple Retraction: None. Limited left breast US: Echotexture: Normal appearance of the glandular tissue. Shadowing: No suspicious foci. Cyst: None. Solid lesions: None seen. Ductal dilation: None. IMPRESSION: 1. No evidence of malignancy is noted. 2. Unless there is more urgent need, follow-up screening mammography is recommended, as per [place] [employer] guidelines. 3. The findings were discussed with the patient on the date of the examination. BI-RADS Category 2 - Benign Findings Breast Density - Category B - Scattered areas of fibroglandular density Breast density Category C or D implies that the patient has dense breast tissue. Dense breast tissue can make it harder to find cancer on a mammogram. Dense breast tissue is also associated with an incr eased risk of breast cancer. This information about the result of the mammogram report was provided to the patient to raise their awareness. Use this report when you speak with the patient about their risks for breast cancer, which includes their family history. At that time, you may recommend additional screening tests (Ultrasoun d or MRI) as these tests may add significant information. A negative radiographic report should not delay biopsy if a dominant or clinically suspicious mass is present. Up to ten percent of cancers are not identified on mammography. A negative report may reinforce clinical impression. Adenosis and dense breasts may obscure an underlying neoplasm. False positive reports average 6 to 10%. Patient will receive a letter notifying them of these results.
== END 2022-09-24 03:36 ==
PROVIDERS: Visit Provider Physician Assistant
DX: Z12.31 Encounter for screening mammogram for malignant neoplasm of breast (principal); R92.8 Other abnormal and inconclusive findings on diagnostic imaging of breast
CPT/HCPCS: 76642; 77063; 77067

== ENCOUNTER 2023-01-24 18:48 | Emergency (ER) | payer OTHER, SELFPAY ==
[2023-01-24 19:06] VITALS: BP 147/79; PULSE 65; RESP 18; TEMP 36.9; O2SAT 98
--- NOTE | 2023-01-24 19:15 | RT.EKG_ITS ---
APPROVED REPORT Exam: Resting ECG Reason for Exam: Midepigastric pain Patient Location: E HR:66 bpm ECG Measurements Heart Rate 66 AXIS CA 168 P 55 QRSd 108 QRS -33 QT 421 T 42 QTc 442 Conclusion Sinus rhythm...normal P axis, V-rate 60- 99 Left axis deviation...QRS axis (-30,-90)
--- NOTE | 2023-01-24 19:20 | ED.GENADUL_ITS ---
Discharge Plan Disposition Patient Disposition: Home Condition: Stable Discharge Details Clinical Impression: Hematuria, Abdominal pain Primary Care Provider: Akiko Loza ED Provider: Bree Bates Home Meds and New Rx's Prescriptions: No Action propranolol 80 mg Capsule,Extended Release 24 Hr 160 mg PO DAILY ibuprofen 800 mg Tablet 800 mg PO PRN PRN acetaminophen [Tylenol Extra Strength] 500 mg Tablet 1,000 mg PO PRN PRN polyethylene glycol 3350 17 gram Powder In Packet 17 g PO DAILY PRN PRN (Reason: Constipation) Qty: 0 0RF methylphenidate HCl [Ritalin] 20 mg tablet 20 mg PO TID Qty: 90 0RF modafinil 200 mg tablet 200 mg PO DAILY Qty: 30 0RF omeprazole 40 mg capsule,delayed release(DR/EC) 40 mg PO DAILY Qty: 20 0RF Discharge Instructions Instructions: Hematuria (ED), Abdominal Pain (ED) Additional Instructions: No evidence of gallstones noted on the CT. Please follow up with general surgery or your primary care provider for further evaluation. You did have a small amount of blood in your urine. Follow up with primary care provider in 3-5 days. Return to ED sooner if any worsening or concerns. Increase oral fluids. Please take Tylenol or Ibuprofen with food every 4-6 hours as needed for pain and swelling. Referrals: Akiko Loza MD [Primary Care Provider] - 3 days Medical Decision Making 62-year-old female presents to the ER with chief complaint of abdominal pain which radiates into her back. She reports that it began about an hour ago. She last ate around 130. She has been told that she needs to have her gallbladder out at the [facility] in the past. She has not since followed up. She denies any vomiting she does endorse nausea. Denies any diarrhea or problems urinating. Other past medical history includes a hysterectomy. Work up ordered including CBC, CMP, Lipase and UA Labs are largely within normal limits discussed lab results and CT results with patient who verbalized understanding. Instructed patient to follow-up with PCP. Patient reports she is feeling much improved since when she came here. Will give her 2 tablets of tramadol to go. She verbalized understanding. This text was generated using [employer] system, please disregard any oddities of phrase or misspellings. Imaging Data Radiologic Study: Imaging: CT Scan Radiologist's impression: COMPARISON: CT ABDOMEN PELVIS W 10/15/2020 22:20 FINDINGS: Liver: No mass. Gallbladder and bile ducts: No calcified stones. No ductal dilation. Pancreas: No ductal dilation. No masses. Spleen: No splenomegaly or focal lesions. Adrenal glands: Subcentimeter left adrenal nodule similar to prior appears benign. There may be a tiny right adrenal nodule also stable, too small to characterize accur ately. Follow-up as per institutional protocol. Kidneys and ureters: Mild prominence of the right ureteral epithelium and mild dilation of the right renal pelvis. Right staghorn calculus and right percutaneous nephrostomy on the previous study have been removed or have resolved. No left hydronephrosis. No renal masses. No significant stones in the collecting systems on postcontrast imaging. Stomach and bowel: Colonic diverticulosis without diverticulitis. No focal pathology in the small bowel. Appendix: No evidence of appendicitis. Intraperitoneal space: No free air. No significant fluid collection. Vasculature: No abdominal aortic aneurysm. Lymph nodes: No significantly enlarged lymph nodes. Urinary bladder: Unremarkable as visualized. Reproductive: Hysterectomy. Bones/joints: The bones are demineralized. No acute fracture or subluxation. Soft tissues: Tiny fat-containing umbilical hernia. IMPRESSION: 1. Mild prominence of the right ureteral epithelium and mild dilation of the right renal pelvis. Please correlate clinically as to any concern for ascending urinary tract infection. 2. Incidental findings as described. Thank you for allowing us to participate in the care of your patient. Dictated and Authenticated by: Shani Patrick MD Lab Data Lab results reviewed: Yes I reviewed the patient's lab results. Labs: 01/24/23 19:20 Urine - Reflex from Ua Urine Culture - Pending Laboratory Tests Range/Units 01/24/23 19:20 WBC (4.4-10.8) 10^3/uL 8.55 RBC (3.93-5.22) 10^6/uL 4.94 Hgb (11.2-15.7) g/dL 14.5 Hct (36.0-46.0) % 43.8 MCV (80-95) fL 89 MCH (27.0-33.0) pg 29.4 MCHC (32.0-36.0) % 33.1 RDW (11.7-14.6) % 11.9 Plt Count (130-400) 10^3/uL 338 MPV (8.0-11.0) fL 9.8 Immature Gran % 0.2 Neutrophils % 51.4 Lymphocytes % 35.4 Monocytes % 9.2 Eosinophils % 3.2 Basophils % 0.6 Nucleated RBC % (0.0-0.3) % 0.0 Absolute Neutrophils (1.2-6.7) 10^3/uL 4.39 Absolute Lymphocytes (1.2-3.4) 10^3/uL 3.03 Absolute Monocytes (0.1-0.8) 10^3/uL 0.79 Absolute Eosinophils (0.0-0.7) 10^3/uL 0.27 Absolute Basophils (0.0-0.2) 10^3/uL 0.05 Sodium (136-145) mmol/L 141 Potassium (3.5-5.1) mmol/L 4.1 Chloride (98-107) mmol/L 106 Carbon Dioxide (21.0-32.0) mmol/L 29.4 Anion Gap (3-11) mmol/L 5.6 BUN (7-18) mg/dL 22 H Creatinine (0.55-1.02) mg/dL 0.8 Est GFR (CKD-EPI 2020) (mL/min/1.73m2) 84.30 Glucose (74-106) mg/dL 113 H Calcium (8.5-10.1) mg/dL 9.5 Magnesium (1.8-2.4) mg/dL 2.1 Total Bilirubin (0.2-1.0) mg/dL 0.5 AST (15-37) U/L 106 H ALT (14-59) U/L 66 H Alkaline Phosphatase (46-116) U/L 113 Troponin I (<or=60) ng/L < 50 Total Protein (6.4-8.2) g/dL 8.3 H Albumin (3.4-5.0) g/dL 3.8 Lipase (16-77) U/L 76 Urine Color (Yellow) Yellow Urine Clarity (Clear) Clear Urine pH (5-8) 6.5 Ur Specific [place] (1.005-1.025) 1.025 Urine Protein (Negative) mg/dL Negative Urine Ketones (Negative) mg/dL Negative Urine Blood (Negative) Trace-intact H Urine Nitrite (Negative) Negative Urine Bilirubin (Negative) Negative Urine Urobilinogen (Up to 0.2) mg/dL 0.2 Ur Leukocyte Esterase (Negative) Negative Urine RBC (0-2) HPF 3-5 H Urine WBC (0-5) HPF 5-10 Ur Epithelial Cells (Negative) HPF Rare Urine Crystals (Negative) HPF Negative Urine Bacteria (Negative) HPF Moderate Urine Casts (Negative) LPF Negative Urine Mucus (Negative) Negative Ur Culture Indicated? Yes Urine Glucose (Negative) mg/dL Negative HPI General Mode of arrival: ambulatory . Date/Time Provider Initiated Documentation: 01/24/23 18:49 . Limitations to Documentation: no limitations . Information obtained by: patient, RN notes reviewed and old records reviewed . HPI Narrative: 62-year-old female presents to the ER with chief complaint of abdominal pain which radiates into her back. She reports that it began about an hour ago. She last ate around 130. She has been told that she needs to have her gallbladder out at the [facility] in the past. She has not since followed up. She denies any vomiting she does endorse nausea. Denies any diarrhea or problems urinating. Other past medical history includes a hysterectomy. Related Data Home Medications Medication Instructions Recorded Confirmed acetaminophen 500 mg tablet 1,000 mg PO PRN PRN 03/25/19 01/24/23 (Tylenol Extra Strength) ibuprofen 800 mg tablet 800 mg PO PRN PRN 03/25/19 01/24/23 propranolol 80 mg capsule,24 160 mg PO DAILY 10/12/20 01/24/23 hr,extended release methylphenidate HCl 20 mg tablet 20 mg PO TID #90 tabs 10/27/20 01/24/23 (Ritalin) modafinil 200 mg tablet 200 mg PO DAILY #30 tabs 10/27/20 01/24/23 polyethylene glycol 3350 17 gram 17 g PO DAILY PRN PRN Constipation 10/27/20 01/24/23 oral powder packet #0 ea omeprazole 40 mg capsule,delayed 40 mg PO DAILY #20 caps 01/23/21 01/24/23 release Previous Rx's Medication Instructions Recorded methylphenidate HCl 20 mg tablet 20 mg PO TID #90 tabs 10/27/20 (Ritalin) modafinil 200 mg tablet 200 mg PO DAILY #30 tabs 10/27/20 polyethylene glycol 3350 17 gram 17 g PO DAILY PRN PRN Constipation 10/27/20 oral powder packet #0 ea omeprazole 40 mg capsule,delayed 40 mg PO DAILY #20 caps 01/23/21 release Allergies Allergy/AdvReac Type Severity Reaction Status Date / Time Penicillins Allergy Severe Hives Unverified 01/23/21 09:04 acetaminophen [From Percocet] AdvReac Intermediate Headache Verified 01/23/21 09:04 oxycodone [From Percocet] AdvReac Intermediate Headache Verified 01/23/21 09:04 General Stated Complaint: Abd Prob TEDDY: 3 Review of Systems All systems reviewed & are unremarkable except as noted in HPI and below Gastrointestinal Gastrointestinal: Reports as per HPI, Reports abdominal pain, Denies diarrhea, Reports nausea and Denies vomiting PFSH All Active Problems (Updated 01/24/23 @ 21:18 by Bree Bates NP) Abdominal pain (Acute) Hematuria (Acute) Transaminitis (Acute) Hydronephrosis (Acute) Chest pain (Acute) Discharge planning issues (Acute) Hypomagnesemia (Acute) E. coli sepsis (Acute) Discharge planning issues (Acute) DVT prophylaxis (Acute) Gram-negative bacteremia (Acute) Hydronephrosis (Acute) Abnormal CT scan, gastrointestinal tract (Acute) Renal calculus, right (Acute) Pyelonephritis, acute (Acute) Chest pain (Acute) Anxiety (Chronic) ADHD (Chronic) Migraine (Chronic) HTN (hypertension) (Chronic) Surgical History S/P hysterectomy Social History Smoking/Tobacco Use Status: Never Smoking risk assessment performed?: Yes Alcohol Intake: current Alcohol Intake frequency: a few times a month Drug use: Never Substance use type: does not use Housing: house Do you feel safe at home: Yes Do you feel safe in your relationship?: Yes Exam Narrative Exam Narrative: Constitutional: Alert and oriented x3. Appears stated age. Obese body habitus. Head: Normocephalic, no trauma. Eyes: Pupils PERRL, Red reflex noted, EOM's intact. Eyelids symmetrical without lesions, discharge, or swelling. ENT: Bilateral TM's WNL, External ear normal to inspection, no mastoid TTP, swelling, or erythema, Nasal turbinates WNL, no nasal discharge. Normal dentition, Posterior pharynx WNL, no exudate. Chest: RRR, Normal S1, S2, distal pulses intact. Resp: Lungs clear to auscultation bilaterally, no wheezes, rales, or rhonchi. Abdomen: Soft, non-distended, Normoactive bowel sounds all 4 quads. Musculoskeletal: Normal gait, 5/5 strength to all four extremities. Skin: No suspicious rashes or lesions. Capillary refill less than 2 sec. Neurologic: Cranial nerves II-XII intact. Alert and oriented x 3. Motor: No deficits noted. Sensory: Intact bilaterally all 4 extremities. Reflexes: DTR's intact bilaterally.. Hematologic/Lymphatic: No ecchymosis, no lymphadenopathy. Course Vital Signs Vital signs: Vital Signs Temperature 36.9 C 01/24/23 19:06 Pulse 65 01/24/23 19:06 Respiratory Rate 18 01/24/23 19:06 Blood Pressure 147/79 H 01/24/23 19:06 Pulse Oximetry 98 01/24/23 19:06 Temperature 36.9 C 01/24/23 19:06 Temperature Source Temporal Artery Scan 01/24/23 19:06 Pulse 65 01/24/23 19:06 Respiratory Rate 18 01/24/23 19:06 Respiratory Effort Normal 01/24/23 19:08 Blood Pressure 147/79 H 01/24/23 19:06 Pulse Oximetry 98 01/24/23 19:06 Oxygen Delivery Method Room Air 01/24/23 19:06 Oxygen Flow Rate 0 01/24/23 19:06 PAWSS Have you Been Recently Intoxicated or Drunk Within the Last 30 days?: No Have you Ever Experienced Previous Episodes of Alcohol Withdrawal?: No Have you ever Experienced Withdrawal Seizures?: No Have you ever Experienced Delirium Tremens(DT)s?: No Have you ever undergone Alcohol Rehabilitation Treatment (i.e, inpt ot outpatient treatment programs)?: No Have you ever Experienced Blackouts?: No Have you ever Combined Alcohol with other Downers within the last 90 days?: No Have you ever Combined Alcohol with any other Substance of Abuse during the last 90 days?: No Positive Blood Alcohol level on Presentation? [PCS.BAL]: No Evidence of Increased Autonomic Activity (i.e. HR>120, tremor, sweating, agitation, nausea)?: No Result: 0
[2023-01-24 19:25] LABS: Abs Immature Grans 0.02 10^3/uL (0.0-0.06); Absolute Basophil Count 0.05 10^3/uL (0.0-0.2); Absolute Eosinophil Count 0.27 10^3/uL (0.0-0.7); Absolute Lymphocyte Count 3.03 10^3/uL (1.2-3.4); Absolute Monocyte Count 0.79 10^3/uL (0.1-0.8); Absolute Neutrophil Count 4.39 10^3/uL (1.2-6.7); Basophils % 0.6; Eosinophils % 3.2; HCT 43.8 % (36.0-46.0); HGB 14.5 g/dL (11.2-15.7); Immature Grans % 0.2; Lymphocytes % 35.4; MCH 29.4 pg (27.0-33.0); MCHC 33.1 % (32.0-36.0); MCV 89 fL (80-95); MPV 9.8 fL (8.0-11.0); Monocytes % 9.2; Neutrophils % 51.4; Platelet Count 338 10^3/uL (130-400); RBC 4.94 10^6/uL (3.93-5.22); RDW 11.9 % (11.7-14.6); RDW-SD 38.2 fL; WBC 8.55 10^3/uL (4.4-10.8)
[2023-01-24] MEDS: Normal Saline 1,000 ML 1000 ML IV (19:27)
[2023-01-24] MEDS: Ondansetron 4 MG/2 ML VIAL IVP (19:27)
[2023-01-24 19:34] LABS: Bilirubin Negative (Negative); Blood Trace-intact (Negative); Clarity Clear (Clear); Glucose Negative (Negative); Ketones Negative (Negative); Leukocyte Esterase Negative (Negative); Nitrite Negative (Negative); Specific Gravity 1.025 (1.005-1.025); Urobilinogen 0.2 mg/dL (Up to 0.2); pH 6.5 (5-8)
[2023-01-24 19:41] LABS: ALT 66 U/L (14-59); AST 106 U/L (15-37); Albumin 3.8 g/dL (3.4-5.0); Alkaline Phosphatase 113 U/L (46-116); Anion Gap 5.6 mmol/L (3-11); BUN 22 mg/dL (7-18); Bilirubin, Total 0.5 mg/dL (0.2-1.0); CO2 29.4 mmol/L (21.0-32.0); CREATININE 0.8 mg/dL (0.55-1.02); Calcium 9.5 mg/dL (8.5-10.1); Chloride 106 mmol/L (98-107); Glucose 113 mg/dL (74-106); Lipase 76 U/L (16-77); Magnesium 2.1 mg/dL (1.8-2.4); Potassium 4.1 mmol/L (3.5-5.1); Sodium 141 mmol/L (136-145); Total Protein 8.3 g/dL (6.4-8.2); Troponin I < 50 ng/L (<or=60)
[2023-01-24 19:43] LABS: Bacteria Moderate HPF (Negative); C & S Indicated? Yes; Casts Negative LPF (Negative); Crystals Negative HPF (Negative); Epithelial Cells Rare HPF (Negative); Mucus Negative (Negative)
--- NOTE | 2023-01-24 20:01 | DI.CT_ITS ---
Exam(s) CT ABDOMEN PELVIS W EXAM: CT ABDOMEN PELVIS W CLINICAL HISTORY: Abdominal pain TECHNIQUE: Imaging Protocol: Axial computed tomography images with coronal and sagittal reformatted images were created and reviewed CONTRAST MATERIAL: Intravenous: Omnipaque 350 Contrast volume:100 mL Oral: No COMPARISON: CT CT ABDOMEN PELVIS W from 10/15/[address] CHEST PE CTA from 01/23/2021 FINDINGS: ABDOMEN: Lung Bases: There is a small hiatal hernia. Liver: Normal density. No measurable mass. Portal, Superior Mesenteric, and Splenic Veins: Unremarkable. Gallbladder and Biliary Tract: No calcified stones are seen. There is no biliary ductal dilatation. Pancreas: Normal density, no abnormal calcifications or inflammatory process. Spleen: Normal. Adrenals: There is unchanged right adrenal nodule most likely reflecting an adenoma. No follow-up is recommended. Kidneys: Normal size, contour and axis. No evidence of nephrolithiasis. There is mild prominence of the right renal pelvis and ureter. No masses seen. Abdominal Aorta: Abdominal portion non-dilated. Bowel: There is a moderate amount of stool in the colon suggesting constipation. Scattered diverticu la are seen in the colon but no evidence of acute diverticulitis. There is no evidence of bowel obst ruction or bowel wall thickening. Appendix is unremarkable. Peritoneal Cavity: No ascites, collection or mesenteric inflammatory response. No free air. Lymph Nodes: Within normal limits. Bones: Within normal limits for the patient's age. The bones are demineralized. Soft Tissues: There is a small fat containing umbilical hernia. PELVIS: Bladder: Symmetric distention, no gross wall thickening. Reproductive Organs: Status post hysterectomy. Lymph Nodes: Within normal limits. Bones: Within normal limits for the patient's age. IMPRESSION: 1. Mild prominence of the right ureteral epithelium and mild dilatation of right renal pelvis. Pleas e correlate clinically for any concern for ascending urinary tract infection. 2. Incidental findings noted as described above. RADIATION DOSE DELIVERED: Total DLP DATA REPOSITORY: All CT scans at this facility are submitted to the National Radiology Data Registry (NRDR) Dose Index Registry (DIR) with the [employer] (A[employer]). RADIATION OPTIMIZATION: All CT scans at this facility use at least one of these dose optimization te chniques: automated exposure control; mA and/or kV adjustment per patient size (includes targeted exa ms where dose is matched to clinical indication); or iterative reconstruction.
[2023-01-24] MEDS: Omnipaque 350 MG/ML 100 ML BTL IJ (20:16)
[2023-01-24] MEDS: Normal Saline - Diluent 50 ML VIAL IJ (20:17)
--- NOTE | 2023-01-24 21:09 | DI.VRAD_ITS ---
PROCEDURE INFORMATION: Exam: CT Abdomen And Pelvis With Contrast Exam date and time: 01/24/2023 20:18 Age: 62 years old Clinical indication: Abdominal pain; Acute TECHNIQUE: Imaging protocol: Computed tomography of the abdomen and pelvis with contrast. Radiation optimization: All CT scans at this facility use at least one of these dose optimization techniques: automated exposure control; mA and/or kV adjustment per patient size (includes targeted exams where dose is matched to clinical indication); or iterative reconstruction. Contrast material: OMNIPAQUE 350; Contrast volume: 100 ml; Contrast route: INTRAVENOUS (IV); COMPARISON: CT ABDOMEN PELVIS W 10/15/2020 22:20 FINDINGS: Liver: No mass. Gallbladder and bile ducts: No calcified stones. No ductal dilation. Pancreas: No ductal dilation. No masses. Spleen: No splenomegaly or focal lesions. Adrenal glands: Subcentimeter left adrenal nodule similar to prior appears benign. There may be a tiny right adrenal nodule also stable, too small to characterize accurately. Follow-up as per institutional protocol. Kidneys and ureters: Mild prominence of the right ureteral epithelium and mild dilation of the right renal pelvis. Right staghorn calculus and right percutaneous nephrostomy on the previous study have been removed or have resolved. No left hydronephrosis. No renal masses. No significant stones in the collecting systems on postcontrast imaging. Stomach and bowel: Colonic diverticulosis without diverticulitis. No focal pathology in the small bowel. Appendix: No evidence of appendicitis. Intraperitoneal space: No free air. No significant fluid collection. Vasculature: No abdominal aortic aneurysm. Lymph nodes: No significantly enlarged lymph nodes. Urinary bladder: Unremarkable as visualized. Reproductive: Hysterectomy. Bones/joints: The bones are demineralized. No acute fracture or subluxation. Soft tissues: Tiny fat-containing umbilical hernia. IMPRESSION: 1. Mild prominence of the right ureteral epithelium and mild dilation of the right renal pelvis. Please correlate clinically as to any concern for ascending urinary tract infection. 2. Incidental findings as described. Dictated and Authenticated by: Shani Patrick MD. Ordering:ASAF Giron MD
== END 2023-01-24 21:29 | disposition home or self-care (01) ==
PROVIDERS: Emergency Provider Registered Nurse Emergency; PCP Physician Assistant
DX: R10.9 Unspecified abdominal pain (principal); R31.9 Hematuria, unspecified; Z87.442 Personal history of urinary calculi
CPT/HCPCS: 80053; 83690; 87077; 93005; 96361; 96374; 96375; 99284; 74177; 81003; 81015; 83735; 84484; 85025; 87086; 87186; 93010; J2405; J3490

== ENCOUNTER 2023-07-08 12:55 | Emergency (ER) | payer OTHER, SELFPAY ==
[2023-07-08] VITALS (9 sets, daily range): BP systolic 144–157; BP diastolic 81–91; PULSE 69–77; RESP 11–18; TEMP 36.2; O2SAT 96–99
--- NOTE | 2023-07-08 12:45 | RT.EKG_ITS ---
APPROVED REPORT Exam: Resting ECG Reason for Exam: sob Patient Location: E HR:72 bpm ECG Measurements Heart Rate 72 AXIS AZ 169 P 45 QRSd 97 QRS -42 QT 387 T 34 QTc 423 Conclusion Sinus rhythm...normal P axis, V-rate 60- 99 Left anterior fascicular block...axis(240,-40), init forces inf Consider left ventricular hypertrophy...(R aVL+S V3) >2.20mV
[2023-07-08 13:45] LABS: Abs Immature Grans 0.02 10^3/uL (0.0-0.06); Absolute Basophil Count 0.04 10^3/uL (0.0-0.2); Absolute Eosinophil Count 0.23 10^3/uL (0.0-0.7); Absolute Lymphocyte Count 2.28 10^3/uL (1.2-3.4); Absolute Neutrophil Count 3.53 10^3/uL (1.2-6.7); Basophils % 0.6 %; Eosinophils % 3.5 %; HCT 42.2 % (36.0-46.0); Immature Grans % 0.3 %; Lymphocytes % 34.5 %; MCH 29.6 pg (27.0-33.0); MCHC 33.2 % (32.0-36.0); MCV 89 fL (80-95); MPV 9.5 fL (8.0-11.0); Monocytes % 7.6 %; Neutrophils % 53.5 %; Platelet Count 244 10^3/uL (130-400); RBC 4.73 10^6/uL (3.93-5.22); RDW 11.5 % (11.7-14.6); RDW-SD 37.2 fL
[2023-07-08 14:08] LABS: ALT 28 U/L (14-59); AST 14 U/L (15-37); Albumin 3.6 g/dL (3.4-5.0); Alkaline Phosphatase 85 U/L (46-116); BUN 20 mg/dL (7-18); Bilirubin, Total 0.4 mg/dL (0.2-1.0); CREATININE 0.8 mg/dL (0.55-1.02); Calcium 9.1 mg/dL (8.5-10.1); Chloride 106 mmol/L (98-107); Glucose 131 mg/dL (74-106); Magnesium 1.6 mg/dL (1.8-2.4); NT-proBNP 38 pg/mL (<300); Potassium 3.9 mmol/L (3.5-5.1); Sodium 143 mmol/L (136-145); Total Protein 7.7 g/dL (6.4-8.2); Troponin I < 50 ng/L (< or =60)
--- NOTE | 2023-07-08 14:21 | DI.RAD_ITS ---
Exam(s) XR CHEST 2V PA LATERAL EXAM: XR CHEST 2V PA LATERAL CLINICAL HISTORY: SOB, edema TECHNIQUE: 2D digital imaging was performed. Two views. COMPARISON: No exams were available for comparison FINDINGS: HEART: Normal size. Aorta: Not dilated. PULMONARY VASCULATURE: Normal. LUNGS: Clear. PLEURAL SPACE: No pleural effusion or pneumothorax. BONE:Unremarkable for age. Soft tissues: Unremarkable. IMPRESSION: No acute abnormality. DATA REPOSITORY: RADIATION DOSE DELIVERED:
--- NOTE | 2023-07-08 14:27 | ED.GENADUL_ITS ---
Discharge Plan Discharge Details Chief Complaint: RespSymp Clinical Impression: Shortness of breath, Hypomagnesemia Primary Care Provider: Akiko Loza ED Provider: Robert Mccloud Home Meds and New Rx's Prescriptions: No Action propranolol 80 mg Capsule,Extended Release 24 Hr 160 mg PO DAILY paroxetine HCl [Paxil] 20 mg tablet 20 mg PO DAILY ibuprofen 800 mg Tablet 800 mg PO PRN PRN acetaminophen [Tylenol Extra Strength] 500 mg Tablet 1,000 mg PO PRN PRN polyethylene glycol 3350 17 gram Powder In Packet 17 g PO DAILY PRN PRN (Reason: Constipation) Qty: 0 0RF methylphenidate HCl [Ritalin] 20 mg tablet 20 mg PO TID Qty: 90 0RF modafinil 200 mg tablet 200 mg PO DAILY Qty: 30 0RF omeprazole 40 mg capsule,delayed release(DR/EC) 40 mg PO DAILY Qty: 20 0RF Discharge Instructions Instructions: Dyspnea (ED), Hypomagnesemia (ED) HPI General Mode of arrival: ambulatory . Date/Time Provider Initiated Documentation: 07/08/23 13:02 . Limitations to Documentation: no limitations . Information obtained by: patient . HPI Narrative: 62-year-old female presents with chief complaint of shortness of breath. Patient notes shortness of breath since this morning with associated lightheadedness. Patient states that over the past 5 days she has had bilateral lower extremity edema that was significant. Edema has improved and is now back to baseline. Patient also notes a 30 pound weight gain since March that she attributes to psychiatric medications. Patient still has shortness of breath at this time. Symptoms currently mild. No associated chest pain. No calf pain. Related Data Home Medications Medication Instructions Recorded Confirmed acetaminophen 500 mg tablet 1,000 mg PO PRN PRN 03/25/19 07/08/23 (Tylenol Extra Strength) ibuprofen 800 mg tablet 800 mg PO PRN PRN 03/25/19 07/08/23 propranolol 80 mg capsule,24 160 mg PO DAILY 10/12/20 07/08/23 hr,extended release methylphenidate HCl 20 mg tablet 20 mg PO TID #90 tabs 10/27/20 07/08/23 (Ritalin) modafinil 200 mg tablet 200 mg PO DAILY #30 tabs 10/27/20 07/08/23 polyethylene glycol 3350 17 gram 17 g PO DAILY PRN PRN Constipation 10/27/20 07/08/23 oral powder packet #0 ea omeprazole 40 mg capsule,delayed 40 mg PO DAILY #20 caps 01/23/21 07/08/23 release paroxetine HCl 20 mg tablet (Paxil) 20 mg PO DAILY 07/08/23 07/08/23 Previous Rx's Medication Instructions Recorded methylphenidate HCl 20 mg tablet 20 mg PO TID #90 tabs 10/27/20 (Ritalin) modafinil 200 mg tablet 200 mg PO DAILY #30 tabs 10/27/20 polyethylene glycol 3350 17 gram 17 g PO DAILY PRN PRN Constipation 10/27/20 oral powder packet #0 ea omeprazole 40 mg capsule,delayed 40 mg PO DAILY #20 caps 01/23/21 release Allergies Allergy/AdvReac Type Severity Reaction Status Date / Time Penicillins Allergy Severe Hives Unverified 07/08/23 13:04 acetaminophen [From Percocet] AdvReac Intermediate Headache Verified 07/08/23 13:04 oxycodone [From Percocet] AdvReac Intermediate Headache Verified 07/08/23 13:04 General Stated Complaint: RespSymp TEDDY: 3 Review of Systems All systems reviewed & are unremarkable except as noted in HPI and below Constitutional Constitutional: Denies fever(s) Cardiovascular Cardiovascular: Denies chest pain and Reports dyspnea Respiratory Respiratory: Reports as per HPI and Reports dyspnea Exam Const General: cooperative and no acute distress HENMT Mouth: moist mucous membranes Eyes Conjunctivae: normal conjunctivae Sclera: normal sclerae Neck Neck: trachea midline and supple Resp Auscultation: clear to auscultation bilaterally, no rales, no rhonchi and no wheezes Cardio Jugular venous pressure: no JVD Rate: regular rate and not tachycardic Rhythm: regular rhythm GI Palpation: soft, not firm, no guarding, no masses, not rigid and nontender Skin General skin exam: no rashes or lesions noted Neuro General: patient alert, patient awake, patient oriented x3 and tone normal Extrem General: no calf tenderness and no edema Psych Appearance: grossly normal Mental Status: mental status grossly normal Course Vital Signs Vital signs: Vital Signs Pulse 69 07/08/23 12:59 Respiratory Rate 18 07/08/23 12:59 Blood Pressure 157/81 H 07/08/23 12:59 Pulse Oximetry 99 07/08/23 12:59 Pulse 72 07/08/23 13:16 Pulse 74 07/08/23 13:40 Respiratory Rate 18 07/08/23 13:40 Respiratory Effort Short of Breath 07/08/23 13:07 Blood Pressure 151/91 H 07/08/23 13:16 Blood Pressure Mean 109 07/08/23 13:16 Blood Pressure Position Sitting 07/08/23 12:59 Pulse Oximetry 96 07/08/23 13:20 Oxygen Delivery Method Room Air 07/08/23 12:59 Oxygen Flow Rate 0 07/08/23 12:59 Lab/Test Results Lab/Test Results: Laboratory Tests Range/Units 07/08/23 13:38 WBC (4.4-10.8) 10^3/uL 6.60 RBC (3.93-5.22) 10^6/uL 4.73 Hgb (11.2-15.7) g/dL 14.0 Hct (36.0-46.0) % 42.2 MCV (80-95) fL 89 MCH (27.0-33.0) pg 29.6 MCHC (32.0-36.0) % 33.2 RDW (11.7-14.6) % 11.5 L Plt Count (130-400) 10^3/uL 244 MPV (8.0-11.0) fL 9.5 Immature Gran % % 0.3 Neutrophils % % 53.5 Lymphocytes % % 34.5 Monocytes % % 7.6 Eosinophils % % 3.5 Basophils % % 0.6 Nucleated RBC % (0.0-0.3) % 0.0 Absolute Neutrophils (1.2-6.7) 10^3/uL 3.53 Absolute Lymphocytes (1.2-3.4) 10^3/uL 2.28 Absolute Monocytes (0.1-0.8) 10^3/uL 0.50 Absolute Eosinophils (0.0-0.7) 10^3/uL 0.23 Absolute Basophils (0.0-0.2) 10^3/uL 0.04 Sodium (136-145) mmol/L 143 Potassium (3.5-5.1) mmol/L 3.9 Chloride (98-107) mmol/L 106 Carbon Dioxide (21.0-32.0) mmol/L 28.0 Anion Gap (3-11) mmol/L 9.0 BUN (7-18) mg/dL 20 H Creatinine (0.55-1.02) mg/dL 0.8 Est GFR (CKD-EPI 2020) (mL/min/1.73m2) 84.30 Glucose (74-106) mg/dL 131 H Calcium (8.5-10.1) mg/dL 9.1 Magnesium (1.8-2.4) mg/dL 1.6 L Total Bilirubin (0.2-1.0) mg/dL 0.4 AST (15-37) U/L 14 L ALT (14-59) U/L 28 Alkaline Phosphatase (46-116) U/L 85 Troponin I (< or =60) ng/L < 50 NT-Pro-B Natriuret Pep (<300) pg/mL 38 Total Protein (6.4-8.2) g/dL 7.7 Albumin (3.4-5.0) g/dL 3.6 Medical Decision Making 1400??62-year-old female with history of hypertension, presents with shortness of breath with associated lightheadedness since this morning. Patient is saturating well in no respiratory distress. She is hypertensive with blood pressure 157/81. Patient notes bilateral lower extremity edema over the past 5 days that has since resolved. POCUS exam was performed of her lungs and reveals no signs of CHF. EKG was reviewed and interpreted by me: Please see report, sinus rhythm 72 bpm, consider LVH. Plan to check BNP and troponin. Consider CICI and will check creatinine. Consider DVT/PE. Patient is low risk by Wells criteria. I will check D-dimer. 1445 --chest x-ray was reviewed and interpreted by radiology: No acute abnormality. Labs reviewed: Mild hypomagnesemia. I will give oral magnesium replacement. BNP and troponin normal. D-dimer is significantly elevated. Plan to proceed with CT of the chest. Lab Data Lab results reviewed: Yes I reviewed the patient's lab results. Labs: Laboratory Tests Range/Units 07/08/23 13:38 WBC (4.4-10.8) 10^3/uL 6.60 RBC (3.93-5.22) 10^6/uL 4.73 Hgb (11.2-15.7) g/dL 14.0 Hct (36.0-46.0) % 42.2 MCV (80-95) fL 89 MCH (27.0-33.0) pg 29.6 MCHC (32.0-36.0) % 33.2 RDW (11.7-14.6) % 11.5 L Plt Count (130-400) 10^3/uL 244 MPV (8.0-11.0) fL 9.5 Immature Gran % % 0.3 Neutrophils % % 53.5 Lymphocytes % % 34.5 Monocytes % % 7.6 Eosinophils % % 3.5 Basophils % % 0.6 Nucleated RBC % (0.0-0.3) % 0.0 Absolute Neutrophils (1.2-6.7) 10^3/uL 3.53 Absolute Lymphocytes (1.2-3.4) 10^3/uL 2.28 Absolute Monocytes (0.1-0.8) 10^3/uL 0.50 Absolute Eosinophils (0.0-0.7) 10^3/uL 0.23 Absolute Basophils (0.0-0.2) 10^3/uL 0.04 D-Dimer (<500) ng/mlFEU 1255 H Sodium (136-145) mmol/L 143 Potassium (3.5-5.1) mmol/L 3.9 Chloride (98-107) mmol/L 106 Carbon Dioxide (21.0-32.0) mmol/L 28.0 Anion Gap (3-11) mmol/L 9.0 BUN (7-18) mg/dL 20 H Creatinine (0.55-1.02) mg/dL 0.8 Est GFR (CKD-EPI 2020) (mL/min/1.73m2) 84.30 Glucose (74-106) mg/dL 131 H Calcium (8.5-10.1) mg/dL 9.1 Magnesium (1.8-2.4) mg/dL 1.6 L Total Bilirubin (0.2-1.0) mg/dL 0.4 AST (15-37) U/L 14 L ALT (14-59) U/L 28 Alkaline Phosphatase (46-116) U/L 85 Troponin I (< or =60) ng/L < 50 NT-Pro-B Natriuret Pep (<300) pg/mL 38 Total Protein (6.4-8.2) g/dL 7.7 Albumin (3.4-5.0) g/dL 3.6 Quality:SDOH Health Related Social Needs: No Data to Display PFSH All Active Problems (Updated 07/08/23 @ 14:50 by Robert Mccloud MD) Hypomagnesemia (Acute) Shortness of breath (Acute) Transaminitis (Acute) Hydronephrosis (Acute) Chest pain (Acute) Discharge planning issues (Acute) Hypomagnesemia (Acute) E. coli sepsis (Acute) Discharge planning issues (Acute) DVT prophylaxis (Acute) Gram-negative bacteremia (Acute) Hydronephrosis (Acute) Abnormal CT scan, gastrointestinal tract (Acute) Renal calculus, right (Acute) Pyelonephritis, acute (Acute) Chest pain (Acute) Anxiety (Chronic) ADHD (Chronic) Migraine (Chronic) HTN (hypertension) (Chronic) Surgical History S/P hysterectomy Social History Smoking/Tobacco Use Status: Never Smoking risk assessment performed?: Yes Alcohol Intake: current Alcohol Intake frequency: a few times a month Drug use: Never Substance use type: does not use Housing: house Do you feel safe at home: Yes Do you feel safe in your relationship?: Yes PAWSS Have you Been Recently Intoxicated or Drunk Within the Last 30 days?: No Have you Ever Experienced Previous Episodes of Alcohol Withdrawal?: No Have you ever Experienced Withdrawal Seizures?: No Have you ever Experienced Delirium Tremens(DT)s?: No Have you ever undergone Alcohol Rehabilitation Treatment (i.e, inpt ot outpatient treatment programs)?: No Have you ever Experienced Blackouts?: No Have you ever Combined Alcohol with other Downers within the last 90 days?: No Have you ever Combined Alcohol with any other Substance of Abuse during the last 90 days?: No Positive Blood Alcohol level on Presentation? [PCS.BAL]: No Evidence of Increased Autonomic Activity (i.e. HR>120, tremor, sweating, ag itation, nausea)?: No Result: 0 POCUS Exam (ED) Limited Thoracic Lung Exam DATE OF EXAM: 07/08/23 TIME OF EXAM: 14:34 PROVIDER THAT PERFORMED THE STUDY: Robert Mccloud IS THIS A REPEAT EXAM DURING THIS ENCOUNTER: No REASON FOR EXAM: Shortness ofBreath VISUALIZED STRUCTURES: right anterior, left anterior, right lateral and left lateral PERTINENT FINDINGS/IMPRESSION: no B-Lines/left side, no B-lines/left side, no pleural effusion on the left and no pleural effusion on the right DIFFERENTIAL DIAGNOSES: Shortness of breath, considered pulmonary vascular congestion which was not present Exam complete
[2023-07-08 14:45] LABS: D-Dimer 1255 ng/mlFEU (<500)
--- NOTE | 2023-07-08 14:45 | DI.CT_ITS ---
Exam(s) CT CHEST PE CTA EXAM: CT CHEST PE CTA CLINICAL HISTORY: SOB, recent leg swelling, elevated ddimer. TECHNIQUE: Imaging Protocol: Axial CT angiography was performed with multi-slice acquisition and mu lti-planar reconstructions as well as axial, coronal and sagittal MIP reconstructions. CONTRAST MATERIAL: Intravenous: Omnipaque 350 Contrast volume:100 ml COMPARISON: CT CT ABDOMEN PELVIS W from 01/24/2023 CR XR CHEST 2V PA LATERAL from 07/08/2023 FINDINGS: Pulmonary Arteries: No evidence of filling defect to suggest pulmonary emboli. Tracheobronchial tree: No mucous plugging. Mediastinum and Jordyn: No dominant adenopathy or fluid collection. Small hiatal hernia. Pulmonary parenchyma: No consolidation or dominant measurable mass. Evaluation limited by expirator y changes and mild respiratory motion. Pleura: No effusion or pneumothorax. Heart: The heart is not dilated. No coronary artery calcifications are seen. Aorta: Thoracic aorta non-dilated. No dissection. Upper abdomen: No acute findings. Bones: Unremarkable for age. Tubes, Catheters, and Lines: None Soft tissues: Unremarkable. IMPRESSION: No evidence of pulmonary embolism or other acute abnormality.. RADIATION DOSE DELIVERED: 600.31mGy.cm Total DLP DATA REPOSITORY: All CT scans at this facility are submitted to the National Radiology Data Registry (NRDR) Dose Index Registry (DIR) with the [employer] (ACR). RADIATION OPTIMIZATION: All CT scans at this facility use at least one of these dose optimization te chniques: automated exposure control; mA and/or kV adjustment per patient size (includes targeted exa ms where dose is matched to clinical indication); or iterative reconstruction.
[2023-07-08] MEDS: Omnipaque 350 MG/ML 100 ML BTL IJ (15:26)
[2023-07-08] MEDS: Normal Saline - Diluent 50 ML VIAL IJ (15:27)
[2023-07-08 16:23] LABS: Troponin I < 50 ng/L (< or =60)
--- NOTE | 2023-07-08 16:38 | W.EDPROG ---
Date of service: 07/08/23 Time of Service: 16:41 Medical Decision Making Erma is a 62-year-old female who presented to the emergency department today for evaluation of shortness of breath and lower extremity edema from the thighs down x couple days (now resolved). Handoff report received from Dr. Mccloud, only awaiting repeat troponin. I did review patient's workup today, including reassuring CBC, CMP (notable only for mild hypomagnesemia, treated with p.o.magnesium). Serial troponins negative. CTA negative for PE or other acute abnormality. Overall workup today reassuring, unclear etiology of shortness of breath, however cardiac workup will and pulmonary workup reassuring. Edema likely lymphedema, though venous insufficiency also possible, especially as patient slept with her legs elevated last night. Reviewed discharge instructions with patient, including importance of follow-up with PCP for further evaluation. Educated on red flags indicate need for return to emergency care. She is agreeable with plan of care Quality:[facility] Health Related Social Needs: No Data to Display Sign Out Sign Out Data: Sign Out Comment: Patient is here with shortness of breath today, recent bilateral leg swelling, now resolved. Patient saturating well in no respiratory distress. Patient found to have mild hypomagnesemia. Patient given magnesium supplementation orally. Patient also found to have elevated D-dimer. CT chest to assess for pulmonary embolism pending at time of discharge. Plan at discharge is to follow-up on CT chest, delta trop and reassess patient for disposition. Last updated by Robert Mccloud MD at 07/08/23 15:33 Discharge Plan Discharge Details Chief Complaint: RespSymp Clinical Impression: Shortness of breath, Hypomagnesemia Primary Care Provider: Akiko Loza ED Provider: Barbara Ron Home Meds and New Rx's Prescriptions: No Action propranolol 80 mg Capsule,Extended Release 24 Hr 160 mg PO DAILY paroxetine HCl [Paxil] 20 mg tablet 20 mg PO DAILY ibuprofen 800 mg Tablet 800 mg PO PRN PRN acetaminophen [Tylenol Extra Strength] 500 mg Tablet 1,000 mg PO PRN PRN polyethylene glycol 3350 17 gram Powder In Packet 17 g PO DAILY PRN PRN (Reason: Constipation) Qty: 0 0RF methylphenidate HCl [Ritalin] 20 mg tablet 20 mg PO TID Qty: 90 0RF modafinil 200 mg tablet 200 mg PO DAILY Qty: 30 0RF omeprazole 40 mg capsule,delayed release(DR/EC) 40 mg PO DAILY Qty: 20 0RF Discharge Instructions Instructions: Dyspnea (ED), Hypomagnesemia (ED)
[2023-07-08] MEDS: Magnesium Oxide 400 MG TAB 800 MG PO (16:53)
== END 2023-07-08 17:05 ==
PROVIDERS: Student in an Organized Health Care Education/Training Program; Emergency Provider Nurse Practitioner Family; PCP Physician Assistant
DX: R06.02 Shortness of breath (principal); R42 Dizziness and giddiness; E83.42 Hypomagnesemia
CPT/HCPCS: 00123; 71275; 76604; 80053; 93005; 99285; 71046; 83735; 83880; 84484; 85025; 85379; 93010; 99283; J3490

== ENCOUNTER 2023-11-13 02:12 | Outpatient (CLI) | payer OTHER, SELFPAY ==
--- NOTE | 2023-11-13 | DI.MAMMO_ITS ---
Exam(s) MAMMO SCREENING EXAM: MAMMO SCREENING CLINICAL HISTORY: [id number], SCREENING Z12.31 TECHNIQUE: Mammograms were interpreted according to the usual protocol including computer analysis w [employer] CAD system, tomosynthesis and C-view imaging. COMPARISON: 2014 through 2022 FINDINGS: The breasts are composed of scattered fibroglandular densities, Breast Density category B. No suspicious masses or suspicious microcalcifications are seen. No skin thickening or abnormal axillary lymph nodes are seen. There has been no significant change from prior exams. IMPRESSION: BI-RADS Category 1, Negative mammogram Yearly screening mammography is recommended. Breast Density - Category B, scattered fibroglandular densities. A negative radiographic report should not delay biopsy if a dominant or clinically suspicious mass is present. Up to ten percent of cancers are not identified on mammography. A negative report may reinforce clinical impression. Adenosis and dense breasts may obscure an underlying neoplasm. False positive reports average 6 to 10%. Patient will receive a letter notifying them of these results.
== END 2023-11-13 02:32 ==
PROVIDERS: PCP Physician Assistant; Visit Provider Physician Assistant
DX: Z12.31 Encounter for screening mammogram for malignant neoplasm of breast (principal)
CPT/HCPCS: 77063; 77067

== ENCOUNTER 2024-02-10 05:59 | Emergency (ER) | payer OTHER, SELFPAY ==
[2024-02-10] VITALS (25 sets, daily range): BP systolic 143–197; BP diastolic 75–91; PULSE 63–88; RESP 12–21; TEMP 36.4–36.9; O2SAT 91–100
--- NOTE | 2024-02-10 06:00 | RT.EKG_ITS ---
APPROVED REPORT Exam: Resting ECG Reason for Exam: chest pain Patient Location: E HR:66 bpm ECG Measurements Heart Rate 66 AXIS VA 169 P 50 QRSd 111 QRS -36 QT 400 T 37 QTc 418 Conclusion Sinus rhythm...normal P axis, V-rate 60- 99 Physician: no stemi
--- NOTE | 2024-02-10 06:23 | DI.CT_ITS ---
Exam(s) CT CHEST PE ABD PELVIS W EXAM: CT CHEST PE ABD PELVIS W CLINICAL HISTORY: Left pleuritic chest pain, eval for PE, nausea, vomiting, epigastric pain. TECHNIQUE: Imaging Protocol: Axial CT angiography was performed with multi-slice acquisition and m ulti-planar and/or 3D reconstructions. CONTRAST MATERIAL: Intravenous: Omnipaque 350 Contrast volume:100 ml Oral: None COMPARISON: CT CT ABDOMEN PELVIS W from 01/24/[address] CHEST PE CTA from 07/08/2023 FINDINGS: CHEST: PULMONARY ARTERIES: Suboptimal bolus timing. There are no obvious intra-arterial filling defects to s uggest the presence of acute pulmonary emboli. LUNGS: There is no evidence of pulmonary infarction.Mild increased markings are noted in the medial r ight lung base-medial basal segment small area paraspinal infiltrate this level. No other focal lung findings. There are no pleural effusions. MEDIASTINUM: There is no hilar nor mediastinal adenopathy. There is some circumferential thickening the lower esophagus just above the GE junction. Possibly significant. CARDIAC: Heart size is normal. There is no pericardial effusion. There is no significant shift of t he interventricular septum.Caliber of the thoracic aorta is within normal limits. No evidence of aor tic dissection. OSSEOUS: No significant osseous lesions.. ABDOMEN: There is no ascites. LIVER: Liver is diffusely hypodense implying steatosis. No discrete focal hepatic lesions. GALLBLADDER/BILIARY: Gallbladder wall is edematous consistent with acute cholecystitis. Also mild pe richolecystic fluid. There are no obvious calcified gallstones. The gallbladder is not distended. CBD is not dilated. PANCREAS: No evidence of pancreatic mass nor dilatation of the pancreatic duct. SPLEEN: Spleen is not enlarged. There are no intrasplenic lesions. Splenic and portal veins are shaffer nt. ADRENALS: Left adrenal gland unremarkable. There is a small hypodense nodule in the genu of the righ t adrenal gland which measures 9 x 8 mm. Probably incidental adenoma. KIDNEYS:No cysts evident. No calculi nor hydronephrosis. No solid renal masses. ABDOMINAL AORTA: Abdominal aorta is not enlarged. No aneurysm. No dissection. Aortic bifurcation a nd aortoiliac segments are normal. LYMPH NODES: There is no retroperitoneal or para-aortic adenopathy. ABDOMINAL WALL/GI: There is a an anterior abdominal wall midline fat only containing umbilical hernia . No bowel obstruction. PELVIS: LYMPH NODES: There is no intrapelvic nor inguinal adenopathy. GI: No evidence of appendicitis.Sigmoid diverticulosis but no evidence of acute diverticulitis. URINARY BLADDER: No calculi nor masses evident REPRODUCTIVE: Uterus surgically absent. No abnormal adnexal masses nor free fluid in the pelvis. OSSEOUS: Somewhat pagetoid appearance of the bones of the pelvis but unchanged from hennessy 05/21/2022. No new significant osseous lesions. IMPRESSION: 1. No evidence of obvious acute pulmonary emboli nor pulmonary infarction. Mild increased markings a re noted in the medial basal segment of the right lower lobe. There are no pleural effusions. No in trathoracic adenopathy. 2. Main acute finding in the abdomen is an edematous appearing gallbladder consistent with acute chol ecystitis.CBD not dilated. Recommend ultrasound. 3. Sigmoid diverticulosis without evidence of acute diverticulitis. 4. Liver is hypodense implying steatosis. No discrete focal hepatic lesions evident. 5. There is circumferential thickening of the lower esophagus probably related to esophagitis. Recom mend further investigation to rule out significant lower esophagus pathology. 6. Somewhat demineralized and mildly pagetoid appearance of the bones of the pelvis but unchanged fr om CT scan of January 2023. There are no focal bone lesions identified. 7. previous hysterectomy. No adnexal masses. No free fluid in the pelvis. Called to ER physician 02/10/2024 8:30 a.m. RADIATION DOSE DELIVERED: 1,271.99mGy.cm Total DLP DATA REPOSITORY: All CT scans at this facility are submitted to the National Radiology Data Registry (NRDR) Dose Index Registry (DIR) with the [employer] (ACR). RADIATION OPTIMIZATION: All CT scans at this facility use at least one of these dose optimization te chniques: automated exposure control; mA and/or kV adjustment per patient size (includes targeted exa ms where dose is matched to clinical indication); or iterative reconstruction.
--- NOTE | 2024-02-10 06:25 | ED.GENADUL_ITS ---
Discharge Plan Discharge Details Chief Complaint: Abd Prob Clinical Impression: Left upper quadrant pain, Urinary tract infection Primary Care Provider: Akiko Loza ED Provider: Nando Dickinson Home Meds and New Rx's Prescriptions: New sulfamethoxazole-trimethoprim [Bactrim DS] 800-160 mg tablet 1 tab PO BID 7 Days Qty: 14 0RF No Action propranolol 80 mg Capsule,Extended Release 24 Hr 160 mg PO DAILY paroxetine HCl [Paxil] 20 mg tablet 20 mg PO DAILY ibuprofen 800 mg Tablet 800 mg PO PRN PRN acetaminophen [Tylenol Extra Strength] 500 mg Tablet 1,000 mg PO PRN PRN methylphenidate HCl [Ritalin] 20 mg tablet 20 mg PO TID Qty: 90 0RF omeprazole 40 mg capsule,delayed release(DR/EC) 40 mg PO DAILY Qty: 20 0RF modafinil 200 mg tablet 200 mg PO DAILY PRN Discharge Instructions Instructions: Urinary tract infections in adults HPI General Date/Time Provider Initiated Documentation: 02/10/24 06:14 . HPI Narrative: This is a 63-year-old female who normally goes to the [place], with a past medical history of nonalcoholic fatty liver disease, borderline diabetes, hypertension, high cholesterol, with a past surgical history of a hysterectomy, who presents today for evaluation of left upper quadrant abdominal pain. Patient states that at around 10 PM last night she developed a stabbing sensation in this area. Pain is always present however it comes and goes in severity every minute or so. She admits to a pleuritic component. She denies any cough or shortness of breath. She denies any fever or chills. She admits to notable nausea but denies any vomiting. She denies any diarrhea flank or urinary pain. She states that she has had something like this in the past and it was attributed to her gallbladder. She does admit to eating a greasy burger last night but no other atypical foods. No other complaints at this time. No other modifying factors. Related Data Home Medications ?Medication ?Instructions ?Recorded ?Confirmed acetaminophen 500 mg tablet 1,000 mg PO PRN PRN 03/25/19 02/10/24 (Tylenol Extra Strength) ibuprofen 800 mg tablet 800 mg PO PRN PRN 03/25/19 02/10/24 propranolol 80 mg capsule,24 160 mg PO DAILY 10/12/20 02/10/24 hr,extended release methylphenidate HCl 20 mg tablet 20 mg PO TID #90 tabs 10/27/20 02/10/24 (Ritalin) omeprazole 40 mg capsule,delayed 40 mg PO DAILY #20 caps 01/23/21 02/10/24 release paroxetine HCl 20 mg tablet (Paxil) 20 mg PO DAILY 07/08/23 02/10/24 modafinil 200 mg tablet 200 mg PO DAILY PRN 02/10/24 02/10/24 sulfamethoxazole 800 1 tab PO BID 7 days #14 tabs 02/10/24 mg-trimethoprim 160 mg tablet (Bactrim DS) Previous Rx's ?Medication ?Instructions ?Recorded methylphenidate HCl 20 mg tablet 20 mg PO TID #90 tabs 10/27/20 (Ritalin) omeprazole 40 mg capsule,delayed 40 mg PO DAILY #20 caps 01/23/21 release sulfamethoxazole 800 1 tab PO BID 7 days #14 tabs 02/10/24 mg-trimethoprim 160 mg tablet (Bactrim DS) Allergies Allergy/AdvReac Type Severity Reaction Status Date / Time Penicillins Allergy Severe Hives Unverified 02/10/24 06:13 acetaminophen (From Percocet) AdvReac Intermediate Headache Verified 02/10/24 06:13 oxycodone (From Percocet) AdvReac Intermediate Headache Verified 02/10/24 06:13 General Stated Complaint: Abd Prob TEDDY: 3 Review of Systems All systems reviewed & are unremarkable except as noted in HPI and below Exam Narrative Exam Narrative: 1.Const: Well-nourished, Well-developed, appearing stated age 2.Eyes: PERRL, no conjunctival injection, and symmetrical lids. 3.ENT: Atraumatic external nose and ears. Moist MM. Neck: Symmetric, trachea midline, No thyromegaly. 4.CVS: +S1/S2, Peripheral pulses 2+ and equal in all extremities. Brisk capillary refill in all extremities. 5.RESP: Unlabored respiratory effort. Clear to auscultation bilaterally. No wheezes rales or rhonchi 6.GI: Soft, Nontender/Nondistended, No hepatosplenomegaly. No guarding or rebound. 7.MSK: Normocephalic/Atraumatic, Extremities w/o deformity or ttp No cyanosis or clubbing, Normal movement of all extremities 8.Skin: Warm, Dry. No rashes or lesions. 9.Neuro: internal controls specialist II-XII grossly intact. Sensation grossly intact, no focal neurologic deficits. 10.Psych: (AAO) x3. Appropriate mood and affect Course Vital Signs Vital signs: Vital Signs Temperature 36.9 C 02/10/24 06:02 Pulse 76 02/10/24 06:02 Respiratory Rate 20 02/10/24 06:02 Blood Pressure 197/88 H 02/10/24 06:02 Pulse Oximetry 97 02/10/24 06:02 Temperature 36.9 C 02/10/24 06:10 Temperature Source Oral 02/10/24 06:10 Pulse 76 02/10/24 06:10 Respiratory Rate 20 02/10/24 06:10 Respiratory Effort Normal, Non-Labored 02/10/24 06:10 Blood Pressure 197/88 H 02/10/24 06:10 Blood Pressure Position Sitting 02/10/24 06:10 Pulse Oximetry 97 02/10/24 06:10 Oxygen Delivery Method Room Air 02/10/24 06:10 Oxygen Flow Rate 0 02/10/24 06:10 Pain Level 7 02/10/24 06:10 Medical Decision Making This is a 63-year-old female who normally goes to the [place], with a past medical history of nonalcoholic fatty liver disease, borderline diabetes, hypertension, high cholesterol, with a past surgical history of a hysterectomy, who presents today for evaluation of left upper quadrant abdominal pain. Patient states that at around 10 PM last night she developed a stabbing sensation in this area. Pain is always present however it comes and goes in severity every minute or so. She admits to a pleuritic component. She denies any cough or shortness of breath. She denies any fever or chills. She admits to notable nausea but denies any vomiting. She denies any diarrhea flank or urinary pain. She states that she has had something like this in the past and it was attributed to her gallbladder. She does admit to eating a greasy burger last night but no other atypical foods. No other complaints at this time. No other modifying factors. Physical exam demonstrates well appearing female, vital signs stable. No guarding or rebound on palpation of the abdomen. No pain in the left upper or right upper quadrants. Negative Pringle sign, no pain at McBurney's point. Lungs are clear to auscultation. Symptomatology certainly does not appear consistent with cholecystitis or necessarily biliary colic for the position. Gastric irritation esophageal spasm or gastric ulcer areas of concern. However the pleuritic chest pain is certainly atypical and of concern. PE remains on the differential because of this. She has no calf pain or tenderness otherwise. Denies PE risk factors such as recent long car rides, immobilization, recent surgery, prior history of DVT or PE, family history of PE or DVT, morbid obesity, exogenous estrogen and smoking, hemoptysis, history of cancer. We will give a GI cocktail Zofran and NSAID therapy for treatment of suspected pain and irritation. We will evaluate for concerning etiology including less likely ACS or PE. Will monitor closely and reassess. 7:52 AM Laboratory workup is returned, no white count bandemia or left shift. Pending imaging. Patient's bilirubin is high at 1.75, she also has mild transaminitis similar to in the past. Alk phos is also elevated. Troponin normal. Lipase normal. Urinalysis does show evidence of urinary tract infection with an elevated WBC count, small leuk esterase. Review of previous cultures indicate E. coli in the past with good susceptibility to Bactrim. Will give Bactrim here secondary to a penicillin allergy. With the transaminitis I do suspect that this is related to her ATWOOD, especially as she has been elevated in the past, however we will send for conjugated bilirubin. Symptoms clinically appear inconsistent with choledocholithiasis based on exam, however we are still awaiting CT imaging results. If this is negative dependent on reexamination she may need ultrasonography if she does develop symptoms that would be more consistent with other etiologies. However at this time no indication currently. Patient will be signed out to my colleague Dr. Harris for follow-up on labs and imaging. Quality:[facility] Health Related Social Needs: No Data to Display [facility] All Active Problems (Updated 02/10/24 @ 07:54 by Nando Dickinson DO) Urinary tract infection (Acute) Left upper quadrant pain (Acute) Transaminitis (Acute) Hydronephrosis (Acute) Chest pain (Acute) Discharge planning issues (Acute) Hypomagnesemia (Acute) E. coli sepsis (Acute) Discharge planning issues (Acute) DVT prophylaxis (Acute) Gram-negative bacteremia (Acute) Hydronephrosis (Acute) Abnormal CT scan, gastrointestinal tract (Acute) Renal calculus, right (Acute) Pyelonephritis, acute (Acute) Chest pain (Acute) Anxiety (Chronic) ADHD (Chronic) Migraine (Chronic) HTN (hypertension) (Chronic) Surgical History S/P hysterectomy Social History Smoking/Tobacco Use Status: Never Smoking risk assessment performed?: Yes Alcohol Intake: current Alcohol Intake frequency: a few times a month Alcohol type: hard liquor Drug use: Never Substance use type: does not use Housing: house Do you feel safe at home: Yes Do you feel safe in your relationship?: Yes
[2024-02-10] MEDS: Ketorolac 15 MG/ML VIAL IVP (06:30)
[2024-02-10] MEDS: Ondansetron 4 MG/2 ML VIAL IVP (06:30)
[2024-02-10 06:32] LABS: Abs Immature Grans 0.03 10^3/uL (0.0-0.06); Absolute Basophil Count 0.06 10^3/uL (0.0-0.2); Absolute Eosinophil Count 0.13 10^3/uL (0.0-0.7); Absolute Lymphocyte Count 1.67 10^3/uL (1.2-3.4); Absolute Neutrophil Count 4.65 10^3/uL (1.2-6.7); Basophils % 0.9 %; Eosinophils % 1.8 %; HCT 44.3 % (36.0-46.0); HGB 14.9 g/dL (11.2-15.7); Immature Grans % 0.4 %; Lymphocytes % 23.7 %; MCH 29.7 pg (27.0-33.0); MCHC 33.6 % (32.0-36.0); MCV 88 fL (80-95); MPV 9.7 fL (8.0-11.0); Monocytes % 7.1 %; Neutrophils % 66.1 %; Platelet Count 316 10^3/uL (130-400); RBC 5.02 10^6/uL (3.93-5.22); RDW 11.8 % (11.7-14.6); RDW-SD 37.5 fL; WBC 7.04 10^3/uL (4.4-10.8)
[2024-02-10 06:35] LABS: Bilirubin Small (Negative); Blood Negative (Negative); Clarity Sl Cloudy (Clear); Glucose Negative (Negative); Ketones Negative (Negative); Leukocyte Esterase Small (Negative); Nitrite Negative (Negative); pH 6.5 (5-8)
[2024-02-10 06:41] LABS: Bacteria Many HPF (Negative); C & S Indicated? Yes; Casts Negative LPF (Negative); Crystals Negative HPF (Negative); Epithelial Cells Few HPF (Negative); Mucus Negative (Negative); RBC 0-2 HPF (0-2)
[2024-02-10 06:45] LABS: PTT Activated 23.6 sec (23.6-32.8)
[2024-02-10 06:54] LABS: ALT 196 U/L (14-59); AST 324 U/L (15-37); Albumin 3.6 g/dL (3.4-5.0); Alkaline Phosphatase 131 U/L (46-116); Anion Gap 7.8 mmol/L (3-11); BUN 17 mg/dL (7-18); Bilirubin, Total 1.75 mg/dL (0.2-1.0); CO2 31.2 mmol/L (21.0-32.0); Calcium 9.4 mg/dL (8.5-10.1); Chloride 102 mmol/L (98-107); Estimated GFR 64.09 (mL/min/1.73m2); Glucose 221 mg/dL (74-106); Lipase 36 U/L (<78); Potassium 3.9 mmol/L (3.5-5.1); Sodium 141 mmol/L (136-145); Total Protein 8.1 g/dL (6.4-8.2)
[2024-02-10 07:01] LABS: Troponin I < 4 ng/L (<or=51)
[2024-02-10] MEDS: Omnipaque 350 MG/ML 100 ML BTL IJ (07:03)
[2024-02-10] MEDS: Normal Saline - Diluent 50 ML VIAL IJ (07:04)
--- NOTE | 2024-02-10 07:56 | W.EDPROG ---
Date of service: 02/10/24 Time of Service: 07:56 Medical Decision Making I received signout on this 63-year-old female in the emergency department setting of left upper quadrant pain. She is pending a CT scan of her chest abdomen pelvis. She was found to have urinary tract infection for which she is receiving trimethoprim/sulfamethoxazole. Will await final read. Reassess patient. 9:54 AM I met with the patient as she had signs of acute cholecystitis on CT and ultrasound. I spoke with Dr. Pichardo from the general surgery team who evaluated the patient. Patient elected not to have her surgery performed today. Dr. Pichardo will set her up with outpatient surgical follow-up. I advised her that if she develop worsening symptoms fevers or worsening pain that she should return to the emergency department. 1. I explained the current situation and condition to the patient. 2. I explained the recommended treatment for this condition ?surgery 3. I explained the risk of not having the recommended treatment ?worsening pain and infection sepsis 4. The patient understands this information has no questions, and repeated back this information. 5. The patient states that they need to leave and will return if her symptoms worsen 6. Mental status is lucid and the patient has decision-making capacity. 7. Patient is withdrawing her consent for care Quality:[facility] Health Related Social Needs: No Data to Display Discharge Plan Disposition Patient Disposition: Home Discharge Details Clinical Impression: Left upper quadrant pain, Urinary tract infection, Acute cholecystitis Primary Care Provider: Akiko Loza ED Provider: Brady Harris Home Meds and New Rx's Prescriptions: New sulfamethoxazole-trimethoprim [Bactrim DS] 800-160 mg tablet 1 tab PO BID 7 Days Qty: 14 0RF Continued propranolol 80 mg Capsule,Extended Release 24 Hr 160 mg PO DAILY paroxetine HCl [Paxil] 20 mg tablet 20 mg PO DAILY ibuprofen 800 mg Tablet 800 mg PO PRN PRN acetaminophen [Tylenol Extra Strength] 500 mg Tablet 1,000 mg PO PRN PRN methylphenidate HCl [Ritalin] 20 mg tablet 20 mg PO TID Qty: 90 0RF omeprazole 40 mg capsule,delayed release(DR/EC) 40 mg PO DAILY Qty: 20 0RF modafinil 200 mg tablet 200 mg PO DAILY PRN Discharge Instructions Instructions: Urinary tract infections in adults Additional Instructions: You were seen in the emergency department for your abdominal pain. Your CAT scan and ultrasound shows that you have signs of an infection in your gallbladder for which the recommended treatment is surgery. You elected to leave AGAINST MEDICAL ADVICE. The risks of leaving are worsening pain worsening infection sepsis and . You are found to have urinary tract infection for which you are receiving antibiotics which you should take as directed. Please stick to a bland diet and avoid greasy foods. Please follow-up with general surgery. For your pain please take medications as follows: 1. Take acetaminophen (Tylenol), 1,000 mg (two 500 mg tabs) every 6 hours [2. Take ibuprofen (Advil), 400 mg every 6 hours.]
[2024-02-10 08:05] LABS: Troponin I < 4 ng/L (<or=51)
--- NOTE | 2024-02-10 08:24 | DI.VRAD_ITS ---
PROCEDURE INFORMATION: Exam: CTA Chest With Contrast CTA Abdomen With Contrast Exam date and time: 02/10/2024 6:59 AM Age: 63 years old Clinical indication: Pleuordynia and left-sided; Abdominal pain; Patient HX: L pleuritic chest pain, eval for pe; Nausea, vomiting, epigastric pain TECHNIQUE: Imaging protocol: Computed tomographic angiography of the chest with contrast. Exam focused on the arteries. Computed tomographic angiography of the abdomen with contrast. Exam focused on the arteries. 3D rendering (Not supervised by radiologist): MIP and/or 3D reconstructed images were created by the technologist. COMPARISON: CT CHEST PE CTA 07/08/2023 3:24 PM FINDINGS: VASCULATURE: Pulmonary arteries: Contrast bolus timing is not adequate for assessment of the segmental and subsegmental pulmonary arteries. Main pulmonary arteries demonstrate no filling defect. Aorta: No aortic aneurysm. No aortic dissection. Celiac trunk and mesenteric arteries: No occlusion or significant stenosis. Renal arteries: No occlusion or significant stenosis. Veins: Multiple calcified pelvic phleboliths. CHEST: Lungs: Minimal dependent atelectasis/scarring. Pleural spaces: Unremarkable. No pneumothorax. No pleural effusion. Heart: Unremarkable. No cardiomegaly. No pericardial effusion. ABDOMEN AND PELVIS: Liver: Diffuse hepatic steatosis. Gallbladder and biliary ducts: Gallbladder wall thickening with mucosal enhancement and surrounding inflammatory change, mild prominence of the gallbladder. Pancreas: Unremarkable. No mass. No ductal dilation. Spleen: Incidental splenule is seen. Adrenal glands: Unremarkable. No mass. Kidneys: Lobulated contours of the kidneys. Stomach and bowel: A few colonic diverticular seen without evidence of diverticulitis. Mild colonic stool burden. Intraperitoneal space: Unremarkable. No free air. No significant fluid collection. Lymph nodes: Unremarkable. No enlarged lymph nodes. Bones/joints: Diffuse degenerative change of the visualized osseous structures. Soft tissues: Unremarkable. Other findings: Left myelolipoma given macroscopic fat, less than 1 cm in diameter. IMPRESSION: 1. Findings suggestive of acute cholecystitis, recommend right upper quadrant ultrasound for definitive assessment. 2. Within the limitations of the examination, no pulmonary embolus. 3. No further acute abnormality. Dictated and Authenticated by: Smith Smith MD. Ordering:LB Collier MD
--- NOTE | 2024-02-10 09:10 | DI.US_ITS ---
Exam(s) US ABDOMEN LIMITED EXAM: US ABDOMEN LIMITED CLINICAL HISTORY: abd pain TECHNIQUE: Ultrasound abdomen performed using standard protocol. COMPARISON: US POCUS EXAM from 07/08/2023 FINDINGS: There is no ascites evident. LIVER: Hypoechoic indicating steatosis. No discrete focal hepatic lesions GALLBLADDER/BILIARY: There are multiple gallstones in the gallbladder lumen. Gallbladder is not dist ended but does appear mildly edematous and there is a small amount pericholecystic fluid The common hepatic duct isminimally dilated, measuring 6-7mm at the level of luis hepatis. PANCREAS: There is no evidence of pancreatic mass nor dilatation of the pancreatic duct. RIGHT KIDNEY:No evidence of solid mass, calculus, nor hydronephrosis. No cortical cysts evident. IMPRESSION: 1. Cholelithiasis and acute cholecystitis. 2. CBD diameter minimally prominent 3. There is no ascites. Discussed by phone with ER physician. DATA REPOSITORY:
--- NOTE | 2024-02-10 09:57 | SCONE_ITS ---
Date of service: 02/10/24 Time of Service: 09:58 Assessment and Plan Assessment and plan (1) Acute cholecystitis: Status: Acute Assessment and plan: The history does seem consistent with biliary source of her pain, although the location of her pain and her other symptoms are little bit atypical. Certainly, the CT scan shows a little bit of Durga cholecystic inflammation again supporting the diagnosis of acute cholecystitis. White blood cell count is normal, and at the current time she is pain-free. We talked for a little while about the natural history of gallstones, and the pathophysiology of cholecystitis. I think she has decent understanding of all of this. I explained the role of surgery in the treatment of cholecystitis and even recurrent biliary colic. At the current time, she is quite hesitant to move forward with surgery because of concerns over risks associated with anesthesia and perioperative. Overall, I am reassured by the improvement of her symptoms. I think it is reasonable to trial a short course of nonoperative management to make sure that she continues to improve. If that is the case, then it is possible that she could get through this without cholecystectomy, although I think the likelihood of recurrent symptoms in the future is quite high, and the big picture of things, I still recommend cholecystectomy as definitive treatment. For now, I think it is reasonable to discharge her home, with a trial of low-fat diet. I will have my office reach out to her to schedule a follow-up appointment and certainly, she should be encouraged to come back if any of her symptoms recur History of Present Illness History of Present Illness Chief Complaint: Left upper quadrant pain Narrative: Erma is 63 years old, she noticed the acute onset of pain under her left breast and left subcostal region starting not long after 9:00 last night. It was around that time that she ate a cheeseburger. She describes the pain as sharp, stabbing, with a little bit of waxing and waning characteristic to it. She recognized it as similar to discomfort she has had in the past that has been attributed to her gallbladder and gallstones. She was not able to get any sleep overnight, she did develop some mild nausea associated with it. She did not have any episodes of vomiting. Pain started to improve a little bit through the morning time, but because it had persisted overnight she drove herself to the emergency department. Labs here demonstrated elevated alk phos, and mild elevation of the bilirubin that seem consistent with acute cholecystitis. She underwent a CT scan of her chest abdomen and pelvis that demonstrated mild inflammation around the gallbladder, again seeming consistent with some acute cholecystitis since then, her symptoms have improved. She is pain-free at the moment, although she did receive a dose of Toradol. Review of Systems Constitutional Constitutional: Reports difficulty sleeping and Reports poor appetite Eyes Eyes: Reports system reviewed and no additional complaints, except as documented ENT Ears, Nose, Mouth, and Throat: Reports system reviewed and no additional complaints, except as documented Cardiovascular Cardiovascular: Reports chest pain (Left-sided), Denies palpitations and Denies dyspnea Respiratory Respiratory: Denies chest congestion, Denies cough and Denies dyspnea Gastrointestinal Gastrointestinal: Reports abdominal pain, Reports dyspepsia, Reports nausea and Denies vomiting Genitourinary Genitourinary: Reports system reviewed and no additional complaints, except as documented Musculoskeletal Musculoskeletal: Reports system reviewed and no additional complaints, except as documented Neurologic Neurologic: Reports system reviewed and no additional complaints, except as documented Endocrine Endocrine: Denies palpitations Hematologic/Lymphatic Hematologic/Lymphatic: Denies easy bleeding and Denies easy bruising PFSH All Active Problems Acute cholecystitis (Acute) Urinary tract infection (Acute) Left upper quadrant pain (Acute) Transaminitis (Acute) Hydronephrosis (Acute) Chest pain (Acute) Discharge planning issues (Acute) Hypomagnesemia (Acute) E. coli sepsis (Acute) Discharge planning issues (Acute) DVT prophylaxis (Acute) Gram-negative bacteremia (Acute) Hydronephrosis (Acute) Abnormal CT scan, gastrointestinal tract (Acute) Renal calculus, right (Acute) Pyelonephritis, acute (Acute) Chest pain (Acute) Anxiety (Chronic) ADHD (Chronic) Migraine (Chronic) HTN (hypertension) (Chronic) Surgical History S/P hysterectomy Social History Smoking/Tobacco Use Status: Never Smoking risk assessment performed?: Yes Alcohol Intake: current Alcohol Intake frequency: a few times a month Alcohol type: hard liquor Drug use: Never Substance use type: does not use Housing: house Do you feel safe at home: Yes Do you feel safe in your relationship?: Yes Exam Const General: cooperative and comfortable Nutritional Appearance: overweight Orientation: alert, awake and oriented x3 HENMT Head: normal to inspection Eyes General: appearance normal, both eyes and all related structures Neck Neck: normal visual inspection, full ROM and no lymphadenopathy Resp Effort & Inspection: no cough Auscultation: clear to auscultation bilaterally GI Inspection: normal to inspection Palpation: soft, no guarding and nontender Results Last Vital Signs Temp 98.4 F 02/10/24 06:10 Pulse 64 02/10/24 07:01 Resp 16 02/10/24 09:40 BP 158/91 H 02/10/24 07:01 Pulse Ox 95 02/10/24 09:40 Labs 02/10/24 06:15 02/10/24 06:15 Labs: Laboratory Results - last 24 hr 02/10/24 02/10/24 02/10/24 06:15 07:31 09:23 WBC 7.04 RBC 5.02 Hgb 14.9 Hct 44.3 MCV 88 MCH 29.7 MCHC 33.6 RDW 11.8 Plt Count 316 MPV 9.7 Immature Gran % 0.4 Neutrophils % 66.1 Lymphocytes % 23.7 Monocytes % 7.1 Eosinophils % 1.8 Basophils % 0.9 Nucleated RBC % 0.0 Absolute Neutrophils 4.65 Absolute Lymphocytes 1.67 Absolute Monocytes 0.50 Absolute Eosinophils 0.13 Absolute Basophils 0.06 PT 10.0 INR 1.0 APTT 23.6 Sodium 141 Potassium 3.9 Chloride 102 Carbon Dioxide 31.2 Anion Gap 7.8 BUN 17 Creatinine 1.0 Est GFR (CKD-EPI 2020) 64.09 Glucose 221 H Calcium 9.4 Total Bilirubin 1.75 H Conjugated Bilirubin 1.0 H AST 324 H ALT 196 H Alkaline Phosphatase 131 H Troponin I < 4 < 4 Cancelled Total Protein 8.1 Albumin 3.6 Lipase 36 Urine Color Yellow Urine Clarity Sl Cloudy Urine pH 6.5 Ur Specific [place]mer 1.020 Urine Protein Negative Urine Ketones Negative Urine Blood Negative Urine Nitrite Negative Urine Bilirubin Small H Urine Urobilinogen 4.0 H Ur Leukocyte Esterase Small H Urine RBC 0-2 Urine WBC 10-20 H Ur Epithelial Cells Few Urine Crystals Negative Urine Bacteria Many Urine Casts Negative Urine Mucus Negative Ur Culture Indicated? Yes Urine Glucose Negative Imaging Abdomen CT scan report/results: report reviewed and image reviewed CT scan - pelvis: report reviewed and image reviewed
[2024-02-10] MEDS: Sulfameth/Trimeth DS TAB 1 TAB PO (10:01)
== END 2024-02-10 10:08 | disposition home or self-care (01) ==
PROVIDERS: Student in an Organized Health Care Education/Training Program; Emergency Provider Emergency Medicine; PCP Physician Assistant
DX: K81.9 Cholecystitis, unspecified (principal); R10.12 Left upper quadrant pain; N39.0 Urinary tract infection, site not specified; I10 Essential (primary) hypertension; E78.5 Hyperlipidemia, unspecified
CPT/HCPCS: 00123; 36415; 71275; 74177; 80053; 83690; 87077; 93005; 99285; 76705; 81003; 81015; 82248; 84484; 85025; 85610; 85730; 87086; 87186; 93010; J1885; J2405; J3490

== ENCOUNTER 2024-02-27 10:41 | Emergency (ER) | payer OTHER, SELFPAY ==
[2024-02-27 10:45] VITALS: BP 132/81; PULSE 84; RESP 16; TEMP 37.1; O2SAT 100
--- NOTE | 2024-02-27 11:29 | ED.GENADUL_ITS ---
Discharge Plan Disposition Patient Disposition: Home Condition: Stable Discharge Details Clinical Impression: Herpes zoster Primary Care Provider: Akiko Loza ED Provider: Elliott Martinez Home Meds and New Rx's Prescriptions: New valacyclovir [Valtrex] 1 gram tablet 1,000 mg PO TID 7 Days Qty: 21 0RF No Action propranolol 80 mg Capsule,Extended Release 24 Hr 160 mg PO DAILY paroxetine HCl [Paxil] 20 mg tablet 20 mg PO DAILY ibuprofen 800 mg Tablet 800 mg PO PRN PRN acetaminophen [Tylenol Extra Strength] 500 mg Tablet 1,000 mg PO PRN PRN methylphenidate HCl [Ritalin] 20 mg tablet 20 mg PO TID Qty: 90 0RF omeprazole 40 mg capsule,delayed release(DR/EC) 40 mg PO DAILY Qty: 20 0RF modafinil 200 mg tablet 200 mg PO DAILY PRN Discharge Instructions Instructions: Shingles Additional Instructions: Start medication as prescribed. This medication can be very upsetting to your stomach. Take with food, use yogurt and other probiotics. Return with fevers chills or any signs of lesions on your face or near your eye HPI General Date/Time Provider Initiated Documentation: 02/27/24 11:02 . Limitations to Documentation: no limitations . Information obtained by: patient . HPI Narrative: 63-year-old female with past medical history including hypertension presents for evaluation of rash. Symptoms started 3 days ago. They started on the back of her neck and come down her left shoulder to her chest in a line it is red, tender, itchy. It feels very burning. Did she noticed little bumps associated. She does report history of fever blisters. Related Data Home Medications ?Medication ?Instructions ?Recorded ?Confirmed acetaminophen 500 mg tablet 1,000 mg PO PRN PRN 03/25/19 02/27/24 (Tylenol Extra Strength) ibuprofen 800 mg tablet 800 mg PO PRN PRN 03/25/19 02/27/24 propranolol 80 mg capsule,24 160 mg PO DAILY 10/12/20 02/27/24 hr,extended release methylphenidate HCl 20 mg tablet 20 mg PO TID #90 tabs 10/27/20 02/27/24 (Ritalin) omeprazole 40 mg capsule,delayed 40 mg PO DAILY #20 caps 01/23/21 02/27/24 release paroxetine HCl 20 mg tablet (Paxil) 20 mg PO DAILY 07/08/23 02/27/24 modafinil 200 mg tablet 200 mg PO DAILY PRN 02/10/24 02/27/24 valacyclovir 1 gram tablet 1,000 mg PO TID 7 days #21 tabs 02/27/24 (Valtrex) Previous Rx's ?Medication ?Instructions ?Recorded methylphenidate HCl 20 mg tablet 20 mg PO TID #90 tabs 10/27/20 (Ritalin) omeprazole 40 mg capsule,delayed 40 mg PO DAILY #20 caps 01/23/21 release valacyclovir 1 gram tablet 1,000 mg PO TID 7 days #21 tabs 02/27/24 (Valtrex) Allergies Allergy/AdvReac Type Severity Reaction Status Date / Time Penicillins Allergy Severe Hives Unverified 02/10/24 06:13 acetaminophen (From Percocet) AdvReac Intermediate Headache Verified 02/10/24 06:13 oxycodone (From Percocet) AdvReac Intermediate Headache Verified 02/10/24 06:13 General Stated Complaint: RashLesion TEDDY: 4 Exam Narrative Exam Narrative: Review of Systems: All systems reviewed & are unremarkable except as noted in HPI and below Well-developed, no acute distress NCAT RRR Unlabored respiratory effort red bases with vesciular lesions, not crusted, following C4 Dematomal pattern, left neck to left chest wall v Course Vital Signs Vital signs: Vital Signs Temperature 37.1 C 02/27/24 10:45 Pulse 84 02/27/24 10:45 Respiratory Rate 16 02/27/24 10:45 Blood Pressure 132/81 02/27/24 10:45 Pulse Oximetry 100 02/27/24 10:45 Temperature 37.1 C 02/27/24 10:45 Pulse 84 02/27/24 10:45 Respiratory Rate 16 02/27/24 10:45 Blood Pressure 132/81 02/27/24 10:45 Pulse Oximetry 100 02/27/24 10:45 Pain Level 4 02/27/24 10:45 Medical Decision Making Emergent evaluation of rash. Initial differential includes herpes zoster, less likely cellulitis, likely less likely contact dermatitis. Patient's rash does follow dermatomal pattern. Will treat with valacyclovir as she is within the 72-hour window. She has no other concerns for severe illness or immune compromise. Advised the medication can be upsetting to the GI tract. Return precautions advised Quality:SDOH Health Related Social Needs: No Data to Display PFSH All Active Problems Herpes zoster (Acute) Acute cholecystitis (Acute) Urinary tract infection (Acute) Left upper quadrant pain (Acute) Transaminitis (Acute) Hydronephrosis (Acute) Chest pain (Acute) Discharge planning issues (Acute) Hypomagnesemia (Acute) E. coli sepsis (Acute) Discharge planning issues (Acute) DVT prophylaxis (Acute) Gram-negative bacteremia (Acute) Hydronephrosis (Acute) Abnormal CT scan, gastrointestinal tract (Acute) Renal calculus, right (Acute) Pyelonephritis, acute (Acute) Chest pain (Acute) Anxiety (Chronic) ADHD (Chronic) Migraine (Chronic) HTN (hypertension) (Chronic) Surgical History S/P hysterectomy Social History Smoking/Tobacco Use Status: Never Smoking risk assessment performed?: Yes Alcohol Intake: current Alcohol Intake frequency: a few times a month Alcohol type: hard liquor Drug use: Never Substance use type: does not use Housing: house Do you feel safe at home: Yes Do you feel safe in your relationship?: Yes
== END 2024-02-27 11:18 | disposition home or self-care (01) ==
LOC: ER 11:20
PROVIDERS: Emergency Provider Emergency Medicine; PCP Physician Assistant
DX: B02.9 Zoster without complications (principal); I10 Essential (primary) hypertension
CPT/HCPCS: 99283

== ENCOUNTER 2024-02-29 04:38 | Emergency (ER) | payer OTHER, SELFPAY ==
[2024-02-29 04:42] VITALS: BP 159/82; PULSE 78; RESP 18; TEMP 36.2; O2SAT 98
--- NOTE | 2024-02-29 05:04 | W.ED.GENAD ---
Discharge Plan Disposition Patient Disposition: Home Condition: Good Discharge Details Clinical Impression: [place] Primary Care Provider: Akiko Loza ED Provider: Meeta Carranza Home Meds and New Rx's Prescriptions: New oxycodone 5 mg tablet 5 mg PO TID PRNQty: 10 0RF Continued propranolol 80 mg Capsule,Extended Release 24 Hr 160 mg PO DAILY paroxetine HCl [Paxil] 20 mg tablet 20 mg PO DAILY valacyclovir [Valtrex] 1 gram tablet 1,000 mg PO TID 7 Days Qty: 21 0RF cholecalciferol (vitamin D3) [Vitamin D3] 25 mcg (1,000 unit) capsule 1,000 unit PO DAILY ibuprofen 800 mg Tablet 800 mg PO PRN PRN acetaminophen [Tylenol Extra Strength] 500 mg Tablet 1,000 mg PO PRN PRN methylphenidate HCl [Ritalin] 20 mg tablet 20 mg PO TID Qty: 90 0RF omeprazole 40 mg capsule,delayed release(DR/EC) 40 mg PO DAILY Qty: 20 0RF modafinil 200 mg tablet 200 mg PO DAILY PRN Discharge Instructions Instructions: Oxycodone, Shingles Additional Instructions: Tylenol and ibuprofen over the counter for pain; follow the directions on the bottle. For severe pain that does not improve with over the counter medication, you can take 5mg of oxycodone (1 tablet) up to every 8 hours as needed. This can make you very groggy; avoid driving until you know this medication is affecting you. Call your primary care doctor on Saturday to schedule an appointment for within the next 3 days to followup on your visit here and to discuss pain control going forward. Return to the emergency department for new or worsening symptoms including temperature 100.4 F or higher, eye pain or vision changes, ear pain or trouble hearing, or if you have any other concerns. Referrals: Akiko Loza MD [Primary Care Provider] - [facility] General Mode of arrival: ambulatory. Date/Time Provider Initiated Documentation: 02/29/24 04:42. Limitations to Documentation: no limitations. Information obtained by: patient and old records reviewed. HPI Narrative: 63yo F with hx HTN, recently diagnosed wtih shingles on 02/26, presenting for pain. Seen in this ED on the and started on valcyclovir. Rash has since crusted over, now having significant pain which is keeping her awake. Unable to sleep for the past two days. Has taken tylenol every 4-6 hours without significant improvement. Rash is on her left shoulder onto her left chest. No involvement of her face. No vision changes or eye pain. Pain is severe, pulling, and worst at her left shoulder. No alleviating or aggravating factors, not worse with exertion or movement. Tmax 100.0F at home. Otherwise in her usual state of health with no chills, nausea, vomiting, shortness of breath, abdominal pain, pain other than in the area of her rash, or other concerns. Related Data Home Medications ?Medication ?Instructions ?Recorded ?Confirmed acetaminophen 500 mg tablet 1,000 mg PO PRN PRN 03/25/19 02/29/24 (Tylenol Extra Strength) ibuprofen 800 mg tablet 800 mg PO PRN PRN 03/25/19 02/29/24 propranolol 80 mg capsule,24 160 mg PO DAILY 10/12/20 02/29/24 hr,extended release methylphenidate HCl 20 mg tablet 20 mg PO TID #90 tabs 10/27/20 02/29/24 (Ritalin) omeprazole 40 mg capsule,delayed 40 mg PO DAILY #20 caps 01/23/21 02/29/24 release paroxetine HCl 20 mg tablet (Paxil) 20 mg PO DAILY 07/08/23 02/29/24 modafinil 200 mg tablet 200 mg PO DAILY PRN 02/10/24 02/29/24 valacyclovir 1 gram tablet 1,000 mg PO TID 7 days #21 tabs 02/27/24 02/29/24 (Valtrex) cholecalciferol (vitamin D3) 25 1,000 unit PO DAILY 02/29/24 02/29/24 mcg (1,000 unit) capsule (Vitamin D3) oxycodone 5 mg tablet 5 mg PO TID PRN #10 tabs 02/29/24 Previous Rx's ?Medication ?Instructions ?Recorded methylphenidate HCl 20 mg tablet 20 mg PO TID #90 tabs 10/27/20 (Ritalin) omeprazole 40 mg capsule,delayed 40 mg PO DAILY #20 caps 01/23/21 release valacyclovir 1 gram tablet 1,000 mg PO TID 7 days #21 tabs 02/27/24 (Valtrex) oxycodone 5 mg tablet 5 mg PO TID PRN #10 tabs 02/29/24 Allergies Allergy/AdvReac Type Severity Reaction Status Date / Time Penicillins Allergy Severe Hives Unverified 02/29/24 04:49 General Stated Complaint: RashLesion TEDDY: 4 Review of Systems Narrative: see HPI Exam Narrative Exam Narrative: General: Alert, well appearing, well nourished, in no acute distress. Head: Normocephalic, atraumatic Neck: Trachea midline, ?Neck supple. Cardiac: ?RRR, no murmurs appreciated Resp: No respiratory distress. CTAB. Skin: C4 dermatomal crusted erythematous rash left neck & shoulder Extremities: ?No deformities.? No peripheral edema. Neurologic: GCS 15. ? Moves all extremities freely against gravity Course Vital Signs Vital signs: Vital Signs Temperature 36.2 C L 02/29/24 04:42 Pulse 78 02/29/24 04:42 Respiratory Rate 18 02/29/24 04:42 Blood Pressure 159/2 H 02/29/24 04:42 Pulse Oximetry 98 02/29/24 04:42 Temperature 36.2 C L 02/29/24 04:42 Pulse 78 02/29/24 04:42 Respiratory Rate 18 02/29/24 04:42 Blood Pressure 159/2 H 02/29/24 04:42 Blood Pressure Position Supine 02/29/24 04:42 Pulse Oximetry 98 02/29/24 04:42 Pain Level 8 02/29/24 04:42 Medical Decision Making 63yo F with hx HTN, recently diagnosed wtih shingles on 02/26, presenting for pain. Seen in this ED on the and started on valcyclovir. Rash has since crusted over, now having significant pain which is keeping her awake. Systemically well. No symptoms to sugest herpes zoster keratitis, herpes zoster ophthalmicus, or Kim El. Vital signs reassuring on arrival, crusted dermatomal rash on exam consistent wtih shingles. As pain is not improved by home tylenol; will add ibuprofen and oxycodone here. With left shoulder pain must consider ACS however pain is in area of rash, onset occurred with rash, and is not anginal in character; clinically not consistent with ACS and would not work up further with EKG/troponin. No indication for labs. On reassessment patient reports pain has much improved. Requests discharge home which is reasonable. Will prescribe 5mg oxycodone q8 hours prn; short course sent to pharmacy, patient advised to followup with PCP early next week for further pain management. Discharged home; discharge instructions and return precautions were reviewed with patient who verbalized understanding. All questions were answered and she is in full agreement with the plan. Medical Records Medical records reviewed: Yes I reviewed the patient's medical records. Quality:SDOH Health Related Social Needs: No Data to Display PFSH All Active Problems (Updated 02/29/24 @ 05:28 by Meeta Carranza MD) Shingles (Acute) Herpes zoster (Acute) Acute cholecystitis (Acute) Urinary tract infection (Acute) Left upper quadrant pain (Acute) Transaminitis (Acute) Hydronephrosis (Acute) Chest pain (Acute) Discharge planning issues (Acute) Hypomagnesemia (Acute) E. coli sepsis (Acute) Discharge planning issues (Acute) DVT prophylaxis (Acute) Gram-negative bacteremia (Acute) Hydronephrosis (Acute) Abnormal CT scan, gastrointestinal tract (Acute) Renal calculus, right (Acute) Pyelonephritis, acute (Acute) Chest pain (Acute) Anxiety (Chronic) ADHD (Chronic) Migraine (Chronic) HTN (hypertension) (Chronic) Surgical History S/P hysterectomy Social History Smoking/Tobacco Use Status: Never Smoking risk assessment performed?: Yes Alcohol Intake: current Alcohol Intake frequency: a few times a month Alcohol type: hard liquor Drug use: Never Substance use type: does not use Housing: house Do you feel safe at home: Yes Do you feel safe in your relationship?: Yes
[2024-02-29] MEDS: Ibuprofen 600 MG TAB PO (05:08)
[2024-02-29] MEDS: oxyCODONE 5 MG TAB PO (05:08)
[2024-02-29 05:42] VITALS: BP 153/75; PULSE 68; RESP 16; O2SAT 96
== END 2024-02-29 05:48 | disposition home or self-care (01) ==
PROVIDERS: Emergency Provider Student in an Organized Health Care Education/Training Program; PCP Physician Assistant
DX: B02.9 Zoster without complications (principal)
CPT/HCPCS: 99283

== ENCOUNTER 2024-05-06 11:15 | Emergency (ER) | payer OTHER, SELFPAY ==
[2024-05-06 11:19] VITALS: BP 146/83; PULSE 72; RESP 16; TEMP 36.6; O2SAT 98
[2024-05-06 11:21] VITALS: BP 146/83; PULSE 72; RESP 16; TEMP 36.6; O2SAT 98
--- NOTE | 2024-05-06 11:30 | RT.EKG_ITS ---
APPROVED REPORT Exam: Resting ECG Reason for Exam: dyspnea Patient Location: E HR:70 bpm ECG Measurements Heart Rate 70 AXIS [place] 162 P 48 QRSd 101 QRS -43 QT 411 T 38 QTc 445 Conclusion Sinus rhythm...normal P axis, V-rate 60- 99 Left anterior fascicular block...axis(240,-40), init forces inf Left ventricular hypertrophy...multiple voltage criteria Physician: no stemi
--- NOTE | 2024-05-06 11:30 | DI.RAD_ITS ---
Exam(s) XR CHEST 2V PA LATERAL EXAM: XR CHEST 2V PA LATERAL CLINICAL HISTORY: dyspnea. TECHNIQUE: 2D digital imaging was performed. COMPARISON: CR XR CHEST 2V PA LATERAL from 07/08/2023 FINDINGS: 2 views: Heart size is normal. The mediastinum is not widened. Lungs are clear. No infiltrates nor pleural effusions. IMPRESSION: No acute pulmonary findings. DATA REPOSITORY: RADIATION DOSE DELIVERED:
[2024-05-06] MEDS: Acetaminophen 325 MG TAB 650 MG PO (12:02)
[2024-05-06 12:28] LABS: Abs Immature Grans 0.02 10^3/uL (0.0-0.06); Absolute Basophil Count 0.04 10^3/uL (0.0-0.2); Absolute Eosinophil Count 0.17 10^3/uL (0.0-0.7); Absolute Lymphocyte Count 1.87 10^3/uL (1.2-3.4); Absolute Monocyte Count 0.46 10^3/uL (0.1-0.8); Absolute Neutrophil Count 2.54 10^3/uL (1.2-6.7); Basophils % 0.8 %; Eosinophils % 3.3 %; HCT 45.4 % (36.0-46.0); HGB 14.8 g/dL (11.2-15.7); Immature Grans % 0.4 %; Lymphocytes % 36.7 %; MCH 29.2 pg (27.0-33.0); MCHC 32.6 % (32.0-36.0); MCV 90 fL (80-95); MPV 9.7 fL (8.0-11.0); Neutrophils % 49.8 %; Platelet Count 261 10^3/uL (130-400); RBC 5.07 10^6/uL (3.93-5.22); RDW-SD 39.2 fL
[2024-05-06 12:45] LABS: ALT 32 U/L (14-59); AST 22 U/L (15-37); Albumin 3.8 g/dL (3.4-5.0); Alkaline Phosphatase 90 U/L (46-116); Anion Gap 6.5 mmol/L (3-11); BUN 15 mg/dL (7-18); Bilirubin, Total 0.59 mg/dL (0.2-1.0); CO2 29.5 mmol/L (21.0-32.0); CREATININE 0.8 mg/dL (0.55-1.02); Chloride 104 mmol/L (98-107); Estimated GFR 83.78 (mL/min/1.73m2); Glucose 145 mg/dL (74-106); Potassium 4.4 mmol/L (3.5-5.1); Sodium 140 mmol/L (136-145); Total Protein 8.2 g/dL (6.4-8.2)
[2024-05-06 12:53] VITALS: BP 120/77; PULSE 67; RESP 12; TEMP 36.1; O2SAT 97
[2024-05-06 13:38] LABS: Bilirubin Negative (Negative); Blood Trace-intact (Negative); Clarity Clear (Clear); Glucose Negative (Negative); Ketones Trace mg/dL (Negative); Leukocyte Esterase Trace (Negative); Nitrite Positive (Negative); Specific Gravity >= 1.030 (1.005-1.025); Urobilinogen 0.2 mg/dL (Up to 0.2); pH 5.5 (5-8)
[2024-05-06 13:59] LABS: Epithelial Cells Few HPF (Negative); RBC 0-2 HPF (0-2)
[2024-05-06] MEDS: Albuterol HFA 8 GM 60 PUFF INH IH (13:59)
[2024-05-06 14:00] LABS: Bacteria Many HPF (Negative); C & S Indicated? Yes; Casts 0-2 Hyaline LPF (Negative); Crystals Negative HPF (Negative); Mucus Negative (Negative)
[2024-05-06 14:01] VITALS: BP 141/89; PULSE 69; RESP 16; TEMP 36.2; O2SAT 96
--- NOTE | 2024-05-06 14:07 | ED.GENADUL_ITS ---
Discharge Plan Disposition Patient Disposition: Home Condition: Stable Discharge Details Clinical Impression: Influenza A, UTI (urinary tract infection) Primary Care Provider: Akiko Loza ED Provider: Lucy Jackson Home Meds and New Rx's Prescriptions: New nitrofurantoin monohyd/m-cryst [Macrobid] 100 mg capsule 100 mg PO BID Qty: 10 0RF Rx Instructions: must administer with a meal/food Continued propranolol 80 mg Capsule,Extended Release 24 Hr 160 mg PO DAILY paroxetine HCl [Paxil] 20 mg tablet 20 mg PO DAILY cholecalciferol (vitamin D3) [Vitamin D3] 25 mcg (1,000 unit) capsule 1,000 unit PO DAILY ibuprofen 800 mg Tablet 800 mg PO PRN PRN acetaminophen [Tylenol Extra Strength] 500 mg Tablet 1,000 mg PO PRN PRN methylphenidate HCl [Ritalin] 20 mg tablet 20 mg PO TID Qty: 90 0RF omeprazole 40 mg capsule,delayed release(DR/EC) 40 mg PO DAILY Qty: 20 0RF modafinil 200 mg tablet 200 mg PO DAILY PRN Discharge Instructions Instructions: Urinary Tract Infection, Adult ED, Flu, Adult ED Additional Instructions: Use the inhaler 2 puffs every 4-6 hours as needed for cough, wheeze, shortness of breath Take Motrin and Tylenol for supportive care per package instructions antibiotic as prescribed return with persistent fever, worsening pain/shortness of breath, or should new concerns arise Stand Alone Forms: Work Release Referrals: Akiko Loza MD [Primary Care Provider] - 2 days Discharge Data Discharge Date/Time-TO BE ENTERED AT DEPARTURE: 05/06/24 14:24 HPI General Date/Time Provider Initiated Documentation: 05/06/24 11:26 . HPI Narrative: The patient is a 63-year-old female with a history of staghorn calculi who presents with upper respiratory symptoms, myalgias, and shortness of breath for the past several days. She reports that her has been ill with similar symptoms. She also has had some urinary frequency. She does not report any fever today but had a temperature of 102 yesterday. She does not report any chest pain or current shortness of breath. She does not report any history of asthma or COPD. Related Data Home Medications ?Medication ?Instructions ?Recorded ?Confirmed acetaminophen 500 mg tablet 1,000 mg PO PRN PRN 03/25/19 05/06/24 (Tylenol Extra Strength) ibuprofen 800 mg tablet 800 mg PO PRN PRN 03/25/19 05/06/24 propranolol 80 mg capsule,24 160 mg PO DAILY 10/12/20 05/06/24 hr,extended release methylphenidate HCl 20 mg tablet 20 mg PO TID #90 tabs 10/27/20 05/06/24 (Ritalin) omeprazole 40 mg capsule,delayed 40 mg PO DAILY #20 caps 01/23/21 05/06/24 release paroxetine HCl 20 mg tablet (Paxil) 20 mg PO DAILY 07/08/23 05/06/24 modafinil 200 mg tablet 200 mg PO DAILY PRN 02/10/24 05/06/24 cholecalciferol (vitamin D3) 25 1,000 unit PO DAILY 02/29/24 05/06/24 mcg (1,000 unit) capsule (Vitamin D3) nitrofurantoin 100 mg PO BID #10 caps 05/06/24 monohydrate/macrocrystals 100 mg capsule (Macrobid) Previous Rx's ?Medication ?Instructions ?Recorded methylphenidate HCl 20 mg tablet 20 mg PO TID #90 tabs 10/27/20 (Ritalin) omeprazole 40 mg capsule,delayed 40 mg PO DAILY #20 caps 01/23/21 release nitrofurantoin 100 mg PO BID #10 caps 05/06/24 monohydrate/macrocrystals 100 mg capsule (Macrobid) Allergies Allergy/AdvReac Type Severity Reaction Status Date / Time Penicillins Allergy Severe Hives Unverified 05/06/24 11:22 General Stated Complaint: RespSymp TEDDY: 4 Exam Narrative Exam Narrative: General Appearance: Patient is alert and oriented, in no acute distress. Vital signs: Vitals are stable. Patient is afebrile. HEENT: Within normal limits. Respiratory: Lungs are clear to auscultation. Cardiovascular: Heart rate and rhythm are regular. Skin: Warm and dry, no rash. Neurological: Normal. Course Vital Signs Vital signs: Vital Signs Temperature 36.6 C 05/06/24 11:19 Pulse 72 05/06/24 11:19 Respiratory Rate 16 05/06/24 11:19 Blood Pressure 146/83 H 05/06/24 11:19 Pulse Oximetry 98 05/06/24 11:19 Temperature 36.2 C L 05/06/24 14:01 Temperature Source Tympanic 05/06/24 14:01 Pulse 69 05/06/24 14:01 Respiratory Rate 16 05/06/24 14:01 Respiratory Effort Normal 05/06/24 11:30 Respiratory Depth Normal 05/06/24 11:30 Blood Pressure 141/89 H 05/06/24 14:01 Blood Pressure Mean 106 05/06/24 14:01 Blood Pressure Position Sitting 05/06/24 14:01 Pulse Oximetry 96 05/06/24 14:01 Oxygen Delivery Method Room Air 05/06/24 12:53 Oxygen Flow Rate 0 05/06/24 12:53 Pain Level 0 05/06/24 14:01 Lab/Test Results Lab/Test Results: 05/06/24 13:30 Urine - Reflex from Ua Urine Culture - Pending Laboratory Tests Range/Units 05/06/24 05/06/24 12:17 13:30 WBC (4.4-10.8) 10^3/uL 5.10 RBC (3.93-5.22) 10^6/uL 5.07 Hgb (11.2-15.7) g/dL 14.8 Hct (36.0-46.0) % 45.4 MCV (80-95) fL 90 MCH (27.0-33.0) pg 29.2 MCHC (32.0-36.0) % 32.6 RDW (11.7-14.6) % 12.0 Plt Count (130-400) 10^3/uL 261 MPV (8.0-11.0) fL 9.7 Immature Gran % % 0.4 Neutrophils % % 49.8 Lymphocytes % % 36.7 Monocytes % % 9.0 Eosinophils % % 3.3 Basophils % % 0.8 Nucleated RBC % (0.0-0.3) % 0.0 Absolute Neutrophils (1.2-6.7) 10^3/uL 2.54 Absolute Lymphocytes (1.2-3.4) 10^3/uL 1.87 Absolute Monocytes (0.1-0.8) 10^3/uL 0.46 Absolute Eosinophils (0.0-0.7) 10^3/uL 0.17 Absolute Basophils (0.0-0.2) 10^3/uL 0.04 Sodium (136-145) mmol/L 140 Potassium (3.5-5.1) mmol/L 4.4 Chloride (98-107) mmol/L 104 Carbon Dioxide (21.0-32.0) mmol/L 29.5 Anion Gap (3-11) mmol/L 6.5 BUN (7-18) mg/dL 15 Creatinine (0.55-1.02) mg/dL 0.8 Est GFR (CKD-EPI 2020) (mL/min/1.73m2) 83.78 Glucose (74-106) mg/dL 145 H Calcium (8.5-10.1) mg/dL 9.0 Total Bilirubin (0.2-1.0) mg/dL 0.59 AST (15-37) U/L 22 ALT (14-59) U/L 32 Alkaline Phosphatase (46-116) U/L 90 Total Protein (6.4-8.2) g/dL 8.2 Albumin (3.4-5.0) g/dL 3.8 Urine Color (Yellow) Yellow Urine Clarity (Clear) Clear Urine pH (5-8) 5.5 Ur Specific [place] (1.005-1.025) >= 1.030 H Urine Protein (Neg-Trace) mg/dL Trace Urine Ketones (Negative) mg/dL Trace H Urine Blood (Negative) Trace-intact H Urine Nitrite (Negative) Positive H Urine Bilirubin (Negative) Negative Urine Urobilinogen (Up to 0.2) mg/dL 0.2 Ur Leukocyte Esterase (Negative) Trace H Urine RBC (0-2) HPF 0-2 Urine WBC (0-5) HPF 10-20 H Ur Epithelial Cells (Negative) HPF Few Urine Crystals (Negative) HPF Negative Urine Bacteria (Negative) HPF Many Urine Casts (Negative) LPF 0-2 Hyaline Urine Mucus (Negative) Negative Ur Culture Indicated? Yes Urine Glucose (Negative) mg/dL Negative Medical Decision Making Laboratory Studies Urinalysis is positive for nitrites and leukocyte esterase with 10 to 20 white blood cells. Imaging Chest x-ray does not show evidence of acute abnormality. Initial Assessment: 63-year-old female with history of staghorn calculi presents with upper respiratory symptoms, myalgias, and shortness of breath for the past several days. has similar symptoms. Had a temperature of 102?F yesterday, currently afebrile. Denies fever today, chest pain, or current shortness of breath. No history of asthma or COPD. Alert and oriented, in no acute distress. Lungs clear to auscultation. Exam otherwise benign. Cardiac rate and rhythm regular. Vitals stable. Differential Diagnosis: - Upper respiratory infection: Presents with upper respiratory symptoms, myalgias, and shortness of breath. with similar symptoms. Afebrile today. No respiratory distress. Chest x-ray shows no acute abnormality. -Rapid COVID flu RSV, influenza A positive - Urinary tract infection: Reports urinary frequency. Urinalysis positive for nitrites and leukocyte esterase with 10-20 white blood cells. Prior urinalysis showed E. coli. Plan to treat with Macrobid. ED Course: - Chest x-ray reviewed, no acute abnormality. - D-dimer negative. - proBNP normal. - Urinalysis positive for nitrites and leukocyte esterase with 10-20 white blood cells. - Treated with Macrobid. - Provided note for work. - Return precautions reviewed, patient expressed understanding. Final Assessment: Patient presents with upper respiratory symptoms and urinary frequency. Diagnostic tests including chest x-ray, D-dimer, and proBNP were normal. Urinalysis indicated a urinary tract infection, treated with Macrobid. Patient educated on return precautions. Clinical Impression: - Upper respiratory infection - Urinary tract infection Disposition: - Discharge MDM Components Evaluation: - Number of Differential Diagnoses or Management Options: Upper respiratory infection, Urinary tract infection - Amount and Complexity of Data Reviewed: Chest x-ray, D-dimer, proBNP, urinalysis - Risk of Complication and Morbidity or Mortality: Low risk based on stable vitals, normal diagnostic tests, and effective treatment plan. Quality:[facility] Health Related Social Needs: No Data to Display [facility] All Active Problems (Updated 05/06/24 @ 14:08 by RY Dillon) UTI (urinary tract infection) (Acute) Influenza A (Acute) Transaminitis (Acute) Hydronephrosis (Acute) Chest pain (Acute) Discharge planning issues (Acute) Hypomagnesemia (Acute) E. coli sepsis (Acute) Discharge planning issues (Acute) DVT prophylaxis (Acute) Gram-negative bacteremia (Acute) Hydronephrosis (Acute) Abnormal CT scan, gastrointestinal tract (Acute) Renal calculus, right (Acute) Pyelonephritis, acute (Acute) Chest pain (Acute) Anxiety (Chronic) ADHD (Chronic) Migraine (Chronic) HTN (hypertension) (Chronic) Surgical History S/P hysterectomy Social History Smoking/Tobacco Use Status: Never Smoking risk assessment performed?: Yes Alcohol Intake: former Drug use: Never Substance use type: does not use Housing: house Do you feel safe at home: Yes Do you feel safe in your relationship?: Yes
== END 2024-05-06 14:24 | disposition home or self-care (01) ==
PROVIDERS: Emergency Provider Physician Assistant; PCP Physician Assistant
DX: J10.1 Influenza due to other identified influenza virus with other respiratory manifestations (principal); N39.0 Urinary tract infection, site not specified; I44.4 Left anterior fascicular block; I10 Essential (primary) hypertension
CPT/HCPCS: 80053; 87077; 93005; 99285; 71046; 81003; 81015; 85025; 87086; 87186; 93010; 99284

== ENCOUNTER 2024-07-30 09:19 | Emergency (ER) | payer OTHER, SELFPAY ==
[2024-07-30 09:22] VITALS: BP 143/84; PULSE 67; TEMP 36.6; O2SAT 97
[2024-07-30 09:24] VITALS: BP 143/84; PULSE 67; TEMP 36.6; O2SAT 97
--- NOTE | 2024-07-30 11:06 | ED.GENADUL_ITS ---
Discharge Plan Disposition Patient Disposition: Home Condition: Stable Discharge Details Clinical Impression: Pharyngitis Primary Care Provider: Akiko Loza ED Provider: Lucy Jackson Home Meds and New Rx's Prescriptions: New prednisone 20 mg tablet 40 mg PO DAILY Qty: 6 0RF Continued propranolol 80 mg Capsule,Extended Release 24 Hr 160 mg PO DAILY paroxetine HCl [Paxil] 20 mg tablet 20 mg PO DAILY cholecalciferol (vitamin D3) [Vitamin D3] 25 mcg (1,000 unit) capsule 1,000 unit PO DAILY nitrofurantoin monohyd/m-cryst [Macrobid] 100 mg capsule 100 mg PO BID Qty: 10 0RF Rx Instructions: must administer with a meal/food ibuprofen 800 mg Tablet 800 mg PO PRN PRN acetaminophen [Tylenol Extra Strength] 500 mg Tablet 1,000 mg PO PRN PRN methylphenidate HCl [Ritalin] 20 mg tablet 20 mg PO TID Qty: 90 0RF omeprazole 40 mg capsule,delayed release(DR/EC) 40 mg PO DAILY Qty: 20 0RF modafinil 200 mg tablet 200 mg PO DAILY PRN aripiprazole [Abilify] 5 mg tablet 5 mg PO DAILY Discharge Instructions Instructions: Sore Throat, Adult ED Additional Instructions: Take Tylenol as needed for pain increase your fluids Take the prednisone for the next 3 days to help with your sore throat May try taking a Claritin this develops or symptoms Stay hydrated, popsicles Please be reevaluated should you have fever chills or any new or worsening complaints there is no evidence of an ear infection and your strep test was negative, culture pending Stand Alone Forms: Work Release Referrals: Akiko Loza MD [Primary Care Provider] - 1 week HPI General Date/Time Provider Initiated Documentation: 07/30/24 09:21 . HPI Narrative: 63-year-old female with sore throat radiating to ears and persistent cough for several days. Reports numerous sick contacts at work. No chest pain, shortness of breath, or globus sensation. Describes throat pain as razor blades when swallowing. Mild runny nose. Related Data Home Medications ?Medication ?Instructions ?Recorded ?Confirmed acetaminophen 500 mg tablet 1,000 mg PO PRN PRN 03/25/19 07/30/24 (Tylenol Extra Strength) ibuprofen 800 mg tablet 800 mg PO PRN PRN 03/25/19 07/30/24 propranolol 80 mg capsule,24 160 mg PO DAILY 10/12/20 07/30/24 hr,extended release methylphenidate HCl 20 mg tablet 20 mg PO TID #90 tabs 10/27/20 07/30/24 (Ritalin) omeprazole 40 mg capsule,delayed 40 mg PO DAILY #20 caps 01/23/21 07/30/24 release paroxetine HCl 20 mg tablet (Paxil) 20 mg PO DAILY 07/08/23 07/30/24 modafinil 200 mg tablet 200 mg PO DAILY PRN 02/10/24 07/30/24 cholecalciferol (vitamin D3) 25 1,000 unit PO DAILY 02/29/24 07/30/24 mcg (1,000 unit) capsule (Vitamin D3) nitrofurantoin 100 mg PO BID #10 caps 05/06/24 07/30/24 monohydrate/macrocrystals 100 mg capsule (Macrobid) aripiprazole 5 mg tablet (Abilify) 5 mg PO DAILY 07/30/24 07/30/24 prednisone 20 mg tablet 40 mg (2 x 20 mg) PO DAILY #6 tabs 07/30/24 Previous Rx's ?Medication ?Instructions ?Recorded methylphenidate HCl 20 mg tablet 20 mg PO TID #90 tabs 10/27/20 (Ritalin) omeprazole 40 mg capsule,delayed 40 mg PO DAILY #20 caps 01/23/21 release nitrofurantoin 100 mg PO BID #10 caps 05/06/24 monohydrate/macrocrystals 100 mg capsule (Macrobid) prednisone 20 mg tablet 40 mg (2 x 20 mg) PO DAILY #6 tabs 07/30/24 Allergies Allergy/AdvReac Type Severity Reaction Status Date / Time Penicillins Allergy Severe Hives Unverified 07/30/24 09:24 General Stated Complaint: Sorethroat TEDDY: 4 Exam Narrative Exam Narrative: General Appearance: Alert, oriented, no acute distress. Vital signs: Within normal limits. HEENT: Enlarged tonsils without exudates, midline uvula, maintaining secretions. No trismus or lymphadenopathy. Clear tympanic membranes bilaterally. Intact phonation. Respiratory: Lungs clear to auscultation. Skin: Warm and dry, no rash. Neurological: Normal. Course Vital Signs Vital signs: Vital Signs Temperature 36.6 C 05/29/25 09:22 Pulse 67 07/30/24 09:22 Blood Pressure 143/84 H 07/30/24 09:22 Pulse Oximetry 97 07/30/24 09:22 Temperature 36.6 C 07/30/24 09:24 Pulse 67 07/30/24 09:24 Blood Pressure 143/84 H 07/30/24 09:24 Pulse Oximetry 97 07/30/24 09:24 Lab/Test Results Lab/Test Results: 07/30/24 09:25 Tonsil - Not Specified Group A Streptococcus Culture - Pending POC Strep Test-ADAM(Rapid) Start: 07/30/24 09:35 Freq: .Rapid Strep Test Status: Active Protocol: Document 07/30/24 09:35 RAFI (Rec: 07/30/24 09:35 [id number] [id number]) Strep test-ADAM(Rapid)-POC POC-Strep test-ADAM (Rapid) Negative POC-Strep test-ADAM (Rapid) Negative Medical Decision Making Strep test negative. Initial Assessment: 63-year-old female with sore throat radiating to ears, cough, mild runny nose, numerous sick contacts at work, no chest pain or shortness of breath, razor blade sensation when swallowing, alert and oriented, no acute distress, clear lungs, enlarged tonsils without exudates, midline uvula, maintaining secretions, no trismus or lymphadenopathy, clear TMs bilaterally, intact phonation, negative strep test. Differential Diagnosis: - Allergies: Suspected due to symptoms and sick contacts. Plan: Encourage rest, tea, Tylenol, and ibuprofen PRN. - Viral Syndrome: Suspected due to symptoms and sick contacts. Plan: Initiate 3- day prednisone for pain, encourage rest, tea, Tylenol, and ibuprofen PRN. ED Course: - Negative strep test. - Initiate 3-day prednisone for pain. - Advise Tylenol and ibuprofen PRN. - Reviewed return precautions. - Encouraged rest and tea. - Provided work note. Final Assessment: Patient with sore throat, cough, and mild runny nose likely due to allergies or viral syndrome. Treatment includes prednisone, Tylenol, and ibuprofen. Return precautions reviewed. Clinical Impression: - Pharyngitis Disposition: - Discharge - Follow-Up: Return precautions reviewed. Patient Education: Encouraged rest, tea, Tylenol, and ibuprofen PRN. MDM Components Evaluation: - Number of Differential Diagnoses or Management Options: Allergies, Viral Syndrome - Amount and Complexity of Data Reviewed: Negative strep test - Risk of Complication and Morbidity or Mortality: Low risk based on symptoms and treatment plan. Quality:SDOH Health Related Social Needs: No Data to Display PFSH All Active Problems (Updated 07/30/24 @ 10:00 by RY Dillon) Pharyngitis (Acute) Transaminitis (Acute) Hydronephrosis (Acute) Chest pain (Acute) Discharge planning issues (Acute) Hypomagnesemia (Acute) E. coli sepsis (Acute) Discharge planning issues (Acute) DVT prophylaxis (Acute) Gram-negative bacteremia (Acute) Hydronephrosis (Acute) Abnormal CT scan, gastrointestinal tract (Acute) Renal calculus, right (Acute) Pyelonephritis, acute (Acute) Chest pain (Acute) Anxiety (Chronic) ADHD (Chronic) Migraine (Chronic) HTN (hypertension) (Chronic) Surgical History S/P hysterectomy Social History Smoking/Tobacco Use Status: Never Smoking risk assessment performed?: Yes Alcohol Intake: current Alcohol Intake frequency: holidays/special occasions only Drug use: Never Substance use type: does not use Housing: house Do you feel safe at home: Yes Do you feel safe in your relationship?: Yes
== END 2024-07-30 10:08 | disposition home or self-care (01) ==
PROVIDERS: Emergency Provider Physician Assistant; PCP Physician Assistant
DX: J02.9 Acute pharyngitis, unspecified (principal); I10 Essential (primary) hypertension
CPT/HCPCS: 87880; 99283; 87081

== ENCOUNTER 2024-08-02 05:03 | Emergency (ER) | payer OTHER, SELFPAY ==
--- NOTE | 2024-08-02 05:08 | W.ED.GENAD ---
Discharge Plan Disposition Patient Disposition: Home Condition: Good Discharge Details Clinical Impression: Feared condition not demonstrated Primary Care Provider: Akiko Loza ED Provider: Tremayne Vail Pony Meds and New Rx's Prescriptions: Continued propranolol 80 mg Capsule,Extended Release 24 Hr 160 mg PO DAILY paroxetine HCl [Paxil] 20 mg tablet 20 mg PO DAILY cholecalciferol (vitamin D3) [Vitamin D3] 25 mcg (1,000 unit) capsule 1,000 unit PO DAILY ibuprofen 800 mg Tablet 800 mg PO PRN PRN acetaminophen [Tylenol Extra Strength] 500 mg Tablet 1,000 mg PO PRN PRN methylphenidate HCl [Ritalin] 20 mg tablet 20 mg PO TID Qty: 90 0RF modafinil 200 mg tablet 200 mg PO DAILY PRN aripiprazole [Abilify] 5 mg tablet 5 mg PO DAILY Discharge Instructions Additional Instructions: Your throat culture is actually negative for strep. Overall, your throat looks okay other than redness and cobblestoning in the way back which is likely related to postnasal drip. While this may still be viral in nature it would be worth taking allergy medication like Claritin to see if this improves your symptoms. Please follow-up with primary care next week if not improving. Return to ED for inability to swallow, difficulty breathing, other concerns. Stand Alone Forms: Work Release Referrals: Akiko Loza MD [Primary Care Provider] - [facility] General Mode of arrival: ambulatory. Date/Time Provider Initiated Documentation: 08/02/24 05:06. Limitations to Documentation: no limitations. Information obtained by: patient, RN notes reviewed and old records reviewed. HPI Narrative: Patient presents to ED after receiving a notification in her portal regarding throat culture. Coworkers told her that it was positive and that she should come back to ED to be evaluated since she was not feeling a whole lot better. She was seen here few days ago and diagnosed with pharyngitis. Continues to have sore throat, congestion, postnasal drip. She has finished the prednisone she was prescribed. She has not had fever that she is aware of. Related Data Home Medications ?Medication ?Instructions ?Recorded ?Confirmed acetaminophen 500 mg tablet 1,000 mg PO PRN PRN 03/25/19 08/02/24 (Tylenol Extra Strength) ibuprofen 800 mg tablet 800 mg PO PRN PRN 03/25/19 08/02/24 propranolol 80 mg capsule,24 160 mg PO DAILY 10/12/20 08/02/24 hr,extended release methylphenidate HCl 20 mg tablet 20 mg PO TID #90 tabs 10/27/20 08/02/24 (Ritalin) paroxetine HCl 20 mg tablet (Paxil) 20 mg PO DAILY 07/08/23 08/02/24 modafinil 200 mg tablet 200 mg PO DAILY PRN 02/10/24 08/02/24 cholecalciferol (vitamin D3) 25 1,000 unit PO DAILY 02/29/24 08/02/24 mcg (1,000 unit) capsule (Vitamin D3) aripiprazole 5 mg tablet (Abilify) 5 mg PO DAILY 07/30/24 08/02/24 Previous Rx's ?Medication ?Instructions ?Recorded methylphenidate HCl 20 mg tablet 20 mg PO TID #90 tabs 10/27/20 (Ritalin) Allergies Allergy/AdvReac Type Severity Reaction Status Date / Time Penicillins Allergy Severe Hives Unverified 07/30/24 09:24 General TEDDY: 4 Exam Narrative Exam Narrative: Const: WDWN female in NAD. VS per triage. HEENT: NC/AT. Normal facial exam. OP without any exudate or edema. She has some erythema and cobblestoning in the posterior oropharynx. Neck: Supple. Trachea midline. Lungs: Normal respiratory effort. Neuro: A+O x 3. Normal speech, mentation, gait. Cranial nerves II - XII grossly intact. No gross motor or sensory deficit. Medical Decision Making Patient's throat culture results are actually negative. While this may be viral pharyngitis, cobblestoning and erythema in the posterior oropharynx would suggest a lot of postnasal drip and possibly allergy related. Patient is asked to try allergy medication like Claritin to see if this helps with his symptoms. She may follow-up with primary care next week if not improving. Return precautions provided. Lab Data Lab results reviewed: Yes I reviewed the patient's lab results. PFSH All Active Problems Feared condition not demonstrated (Acute) Pharyngitis (Acute) Transaminitis (Acute) Abnormal CT scan, gastrointestinal tract (Acute) Renal calculus, right (Acute) Medical History HTN (hypertension) Migraine ADHD Anxiety Surgical History S/P hysterectomy Social History Smoking/Tobacco Use Status: Never Smoking risk assessment performed?: Yes Alcohol Intake: current Alcohol Intake frequency: holidays/special occasions only Drug use: Never Substance use type: does not use Housing: house Do you feel safe at home: Yes Do you feel safe in your relationship?: Yes
[2024-08-02 05:13] VITALS: BP 161/93; PULSE 73; RESP 21; TEMP 37.1; O2SAT 98
== END 2024-08-02 05:29 | disposition home or self-care (01) ==
PROVIDERS: Emergency Provider Emergency Medicine; PCP Physician Assistant
DX: Z71.1 Person with feared health complaint in whom no diagnosis is made (principal)
CPT/HCPCS: 99281; 99282

== ENCOUNTER 2024-08-03 11:59 | Emergency (ER) | payer OTHER, SELFPAY ==
[2024-08-03 12:00] VITALS: BP 162/92; PULSE 67; RESP 16; TEMP 36.5
[2024-08-03 12:04] VITALS: BP 162/92; PULSE 67; RESP 16; TEMP 36.5
[2024-08-03] MEDS: Prochlorperazine 10 MG/2 ML VIAL IVP (12:28)
[2024-08-03] MEDS: ACETAMINOPHEN 1,000 MG/100 ML BTL 400 MG IVPB (12:30)
[2024-08-03] MEDS: ACETAMINOPHEN 1,000 MG/100 ML BAG 1000 MG (12:31)
[2024-08-03] MEDS: Normal Saline 1,000 ML 1000 ML IV (12:31)
[2024-08-03 14:20] VITALS: PULSE 68; RESP 18; O2SAT 99
[2024-08-03] MEDS: Ketorolac 15 MG/ML VIAL IVP (14:22)
[2024-08-03] MEDS: MAGNESIUM SULFATE 1 GM/100 ML BAG IV_INF (14:22)
[2024-08-03 14:51] VITALS: BP 167/67; PULSE 78; RESP 18; O2SAT 98
--- NOTE | 2024-08-04 11:24 | ED.GENADUL_ITS ---
Discharge Plan Disposition Patient Disposition: Home Condition: Stable Discharge Details Clinical Impression: Migraine Primary Care Provider: Akiko Loza ED Provider: Lucy Jackson Home Meds and New Rx's Prescriptions: Continued propranolol 80 mg Capsule,Extended Release 24 Hr 160 mg PO DAILY paroxetine HCl [Paxil] 20 mg tablet 20 mg PO DAILY cholecalciferol (vitamin D3) [Vitamin D3] 25 mcg (1,000 unit) capsule 1,000 unit PO DAILY ibuprofen 800 mg Tablet 800 mg PO PRN PRN acetaminophen [Tylenol Extra Strength] 500 mg Tablet 1,000 mg PO PRN PRN methylphenidate HCl [Ritalin] 20 mg tablet 20 mg PO TID Qty: 90 0RF modafinil 200 mg tablet 200 mg PO DAILY PRN aripiprazole [Abilify] 5 mg tablet 5 mg PO DAILY Discharge Instructions Instructions: Headache, Adult ED Additional Instructions: Please take meds at home if you develop recurrence of headache rest regular food and fluids Return earlier should you have new or worsening complaints Referrals: Aikko Loza MD [Primary Care Provider] - 1 day Discharge Data Discharge Date/Time-TO BE ENTERED AT DEPARTURE: 08/03/24 15:24 HPI General Date/Time Provider Initiated Documentation: 08/03/24 12:00 . HPI Narrative: 63-year-old female with hypertension presents with a migraine headache. History of migraines, current headache similar to previous episodes with aura in left eye. No recent falls, injuries, fever, chills, stiff neck, or tick bites. Alert, oriented, photophobic. Related Data Home Medications ?Medication ?Instructions ?Recorded ?Confirmed acetaminophen 500 mg tablet 1,000 mg PO PRN PRN 03/25/19 08/03/24 (Tylenol Extra Strength) ibuprofen 800 mg tablet 800 mg PO PRN PRN 03/25/19 08/03/24 propranolol 80 mg capsule,24 160 mg PO DAILY 10/12/20 08/03/24 hr,extended release methylphenidate HCl 20 mg tablet 20 mg PO TID #90 tabs 10/27/20 08/03/24 (Ritalin) paroxetine HCl 20 mg tablet (Paxil) 20 mg PO DAILY 07/08/23 08/03/24 modafinil 200 mg tablet 200 mg PO DAILY PRN 02/10/24 08/03/24 cholecalciferol (vitamin D3) 25 1,000 unit PO DAILY 02/29/24 08/03/24 mcg (1,000 unit) capsule (Vitamin D3) aripiprazole 5 mg tablet (Abilify) 5 mg PO DAILY 07/30/24 08/03/24 Previous Rx's ?Medication ?Instructions ?Recorded methylphenidate HCl 20 mg tablet 20 mg PO TID #90 tabs 10/27/20 (Ritalin) Allergies Allergy/AdvReac Type Severity Reaction Status Date / Time Penicillins Allergy Severe Hives Unverified 08/03/24 12:03 General Stated Complaint: Headache TEDDY: 3 Exam Narrative Exam Narrative: General Appearance: Alert, oriented, photophobic. Vital signs: BP slightly elevated but stable. HEENT: Pupils equal, round, reactive to light and accommodation. TMs clear bilaterally. Oropharynx patent, uvula midline. Respiratory: Within normal limits. Skin: No rashes or lesions. Neurological: No signs of meningismus. Back, Musculoskeletal: Ambulatory with steady gait. Course Vital Signs Vital signs: Vital Signs Temperature 36.5 C 08/03/24 12:00 Pulse 67 08/03/24 12:00 Respiratory Rate 16 08/03/24 12:00 Blood Pressure 162/92 H 08/03/24 12:00 Temperature 36.5 C 08/03/24 12:04 Temperature Source Skin 08/03/24 12:04 Pulse 78 08/03/24 14:51 Pulse Rhythm Regular 08/03/24 14:20 Pulse Strength Normal 08/03/24 14:20 Respiratory Rate 18 08/03/24 14:51 Blood Pressure 167/67 H 08/03/24 14:51 Blood Pressure Mean 100 08/03/24 14:51 Blood Pressure Position Sitting 08/03/24 12:04 Pulse Oximetry 98 08/03/24 14:51 Oxygen Delivery Method Room Air 08/03/24 14:51 Oxygen Flow Rate 0 08/03/24 14:51 Pain Level 8 08/03/24 12:51 Medical Decision Making Initial Assessment: 63-year-old female with history of hypertension presents with migraine headache, history of migraine headaches as well. Headache is similar to previous episodes, describes an aura in left eye. Denies falls, injuries, fever, chills, stiff neck, recent tick bites. Patient is alert and oriented, photophobic. Pupils equal, round, reactive to light and accommodation, intact. Ambulatory, steady gait. No meningismus. TMs clear bilaterally. Oropharynx patent. Uvula midline. No rashes or lesions. Blood pressure slightly elevated but stable for patient. ED Course: - Administered migraine cocktail (magnesium, Toradol, Tylenol, Compazine, fluids) - Symptomatic improvement - No CT imaging warranted - Follow up with PCP - Take antiemetics as needed - Return precautions reviewed - Encouraged to have blood pressure check by PCP Final Assessment: Patient presented with migraine headache similar to previous episodes with aura in left eye. Blood pressure slightly elevated but stable. Administered migraine cocktail with symptomatic improvement. No CT imaging warranted. Follow up with PCP and take antiemetics as needed. Return precautions reviewed. Clinical Impression: - Migraine headache - Hypertension Disposition: - Discharge - Follow-Up: Follow up with PCP MDM Components Evaluation: - Number of Differential Diagnoses or Management Options: Migraine headache, Hypertension - Amount and Complexity of Data Reviewed: Clinical assessment, medication administration - Risk of Complication and Morbidity or Mortality: Low risk based on stable blood pressure and symptomatic improvement Quality:SDOH Health Related Social Needs: No Data to Display PFSH All Active Problems (Updated 08/03/24 @ 15:15 by RY Dillon) Migraine (Chronic) Feared condition not demonstrated (Acute) Pharyngitis (Acute) Transaminitis (Acute) Abnormal CT scan, gastrointestinal tract (Acute) Renal calculus, right (Acute) Medical History HTN (hypertension) Migraine ADHD Anxiety Surgical History S/P hysterectomy Social History Smoking/Tobacco Use Status: Never Smoking risk assessment performed?: Yes Alcohol Intake: current Alcohol Intake frequency: holidays/special occasions only Drug use: Never Substance use type: does not use Housing: house Do you feel safe at home: Yes Do you feel safe in your relationship?: Yes
== END 2024-08-03 15:24 | disposition home or self-care (01) ==
PROVIDERS: Emergency Provider Physician Assistant; PCP Physician Assistant
DX: G43.909 Migraine, unspecified, not intractable, without status migrainosus (principal); I10 Essential (primary) hypertension
CPT/HCPCS: 96374; 96375; 99284; J0131; J0780; J1885; J3475